=== PATIENT | male | born 1945 | race Caucasian/White ===

== ENCOUNTER → 2023-04-19 06:33 | Outpatient (REF) | payer MEDICARE, SELFPAY ==
[2023-04-19 07:34] LABS: ALT (SGPT) 35 U/L (0-50); AST (SGOT) 31 U/L (17-59); Albumin 3.7 g/dl (3.5-5.0); Alkaline Phosphatase 53 U/L (38-126); Blood Urea Nitrogen 30 mg/dl (9-20); Calcium 9.4 mg/dl (8.4-10.2); Carbon Dioxide 23 mmol/L (22-30); Chloride 105 mmol/L (98-107); Glucose 112 mg/dl (70-99); HDL Cholesterol 32 mg/dl; LDL Cholesterol, Calculated 62 mg/dl; Potassium 4.5 mmol/L (3.5-5.1); Sodium 140 mmol/L (135-145); Total Bilirubin 0.8 mg/dl (0.2-1.3); Total Cholesterol 134 mg/dl (50-199); Total Protein 6.1 g/dl (6.3-8.2); Triglyceride 204 mg/dl (10-149); Very Low Density Lipoprotein 40 mg/dl (0-30); eGFR 56.58
== END ==
LOC: REG 06:33
PROVIDERS: ATTENDING PHYSICIAN Nuclear Medicine Nuclear Cardiology; FAMILY PHYSICIAN Family Medicine
DX: I35.0 Nonrheumatic aortic (valve) stenosis (principal); I25.10 Atherosclerotic heart disease of native coronary artery without angina pectoris; R06.02 Shortness of breath; E78.00 Pure hypercholesterolemia, unspecified
CPT/HCPCS: 36415; 80053; 80061

== ENCOUNTER → 2023-09-21 06:38 | Outpatient (REF) | payer MEDICARE, SELFPAY ==
[2023-09-21 07:39] LABS: % Basophils 0.8 % (0-2); % Eosinophils 6.1 % (0-6); % Immature Granulocytes 0.5 % (0-0.5); % Lymphocytes 29.5 % (20.5-51.1); % Monocytes 7.8 % (1.7-9.3); % Neutrophils 55.3 % (42.2-75.2); Absolute Basophils 0.1 10^3/uL (0-0.2); Absolute Eosinophils 0.5 10^3/uL (0-0.7); Absolute Lymphocytes 2.6 10^3/uL (1.2-3.4); Absolute Monocytes 0.7 10^3/uL (0.1-0.6); Absolute Neutrophils 4.8 10^3/uL (1.4-6.5); Hematocrit 41.4 % (39.0-52.0); Hemoglobin 13.7 g/dL (13.0-18.0); Mean Corp Hgb Conc. 33.1 g/dL (33.0-37.0); Mean Corpuscular Hgb 30.6 pg (27.0-31.0); Mean Corpuscular Volume 92.6 fL (80.0-94.0); Mean Platelet Volume 10.2 fL (7.4-10.4); Nucleated Red Blood Cells % 0 % (-); Platelet Count 236 10^3/uL (130-400); Red Blood Cell Count 4.47 10^6/uL (4.70-6.10); White Blood Cell Count 8.7 10^3/uL (4.8-10.8)
[2023-09-21 07:55] LABS: ALT (SGPT) 29 U/L (0-50); AST (SGOT) 31 U/L (17-59); Albumin 4.1 g/dl (3.5-5.0); Alkaline Phosphatase 55 U/L (38-126); Blood Urea Nitrogen 25 mg/dl (9-20); Calcium 9.4 mg/dl (8.4-10.2); Carbon Dioxide 24 mmol/L (22-30); Chloride 108 mmol/L (98-107); Glucose 104 mg/dl (70-99); HDL Cholesterol 36 mg/dl; LDL Cholesterol, Calculated 72 mg/dl; Potassium 4.5 mmol/L (3.5-5.1); Sodium 138 mmol/L (135-145); Total Bilirubin 0.7 mg/dl (0.2-1.3); Total Cholesterol 151 mg/dl (50-199); Total Protein 6.6 g/dl (6.3-8.2); Triglyceride 219 mg/dl (10-149); Very Low Density Lipoprotein 43 mg/dl (0-30); eGFR 56.23
[2023-09-21 08:23] LABS: Free T4 0.98 ng/dl (0.78-2.19); Vitamin D, 25-OH*** 46.3 ng/mL (30-80)
[2023-09-21 08:36] LABS: PSA, Total - Diagnostic 0.34 ng/ml (0.0-4.0); TSH 2.45 uIU/ml (0.47-4.68)
[2023-09-21 08:56] LABS: Vitamin B12 613 pg/ml (239-931)
[2023-09-21 11:09] LABS: Glycohemoglobin (HgbA1c) 5.8 % (4.0-5.6)
== END ==
LOC: REG 06:38
PROVIDERS: ATTENDING PHYSICIAN Nuclear Medicine Nuclear Cardiology; FAMILY PHYSICIAN Family Medicine
DX: E78.00 Pure hypercholesterolemia, unspecified (principal); I25.10 Atherosclerotic heart disease of native coronary artery without angina pectoris; I35.0 Nonrheumatic aortic (valve) stenosis; R06.02 Shortness of breath; R73.03 Prediabetes; D52.9 Folate deficiency anemia, unspecified; E55.9 Vitamin D deficiency, unspecified; C61 Malignant neoplasm of prostate
CPT/HCPCS: 36415; 80053; 80061; 82306; 82607; 83036; 84153; 84439; 84443; 85025

== ENCOUNTER → 2023-10-07 10:41 | Outpatient (REF) | payer MEDICARE, SELFPAY | LOC: REG 10:41 | PROVIDERS: ATTENDING PHYSICIAN Nurse Practitioner Family; FAMILY PHYSICIAN Family Medicine | DX: R19.7 Diarrhea, unspecified (principal) | CPT/HCPCS: 82653; 82705; 83993; 87328; 87329 ==

== ENCOUNTER 2023-11-04 05:12 | Emergency (ER) | payer MEDICARE, SELFPAY ==
[2023-11-04] VITALS (18 sets, daily range): BP systolic 162–186; BP diastolic 69–106; BMI 31.6
[2023-11-04 05:46] LABS: % Basophils 0.5 % (0-2); % Eosinophils 5.4 % (0-6); % Immature Granulocytes 0.4 % (0-0.5); % Lymphocytes 25.7 % (20.5-51.1); % Monocytes 9.5 % (1.7-9.3); % Neutrophils 58.5 % (42.2-75.2); Absolute Basophils 0.1 10^3/uL (0-0.2); Absolute Eosinophils 0.5 10^3/uL (0-0.7); Absolute Lymphocytes 2.6 10^3/uL (1.2-3.4); Absolute Neutrophils 5.9 10^3/uL (1.4-6.5); Hematocrit 37.6 % (39.0-52.0); Hemoglobin 12.5 g/dL (13.0-18.0); Mean Corp Hgb Conc. 33.2 g/dL (33.0-37.0); Mean Corpuscular Hgb 30.6 pg (27.0-31.0); Mean Corpuscular Volume 92.2 fL (80.0-94.0); Mean Platelet Volume 10.4 fL (7.4-10.4); Nucleated Red Blood Cells % 0 % (-); Platelet Count 246 10^3/uL (130-400); Red Blood Cell Count 4.08 10^6/uL (4.70-6.10); Red Cell Dist. Width 14.1 % (11.5-14.5)
[2023-11-04 06:00] LABS: ALT (SGPT) 30 U/L (0-50); AST (SGOT) 29 U/L (17-59); Albumin 3.9 g/dl (3.5-5.0); Alkaline Phosphatase 55 U/L (38-126); Blood Urea Nitrogen 30 mg/dl (9-20); Calcium 9.6 mg/dl (8.4-10.2); Carbon Dioxide 26 mmol/L (22-30); Chloride 107 mmol/L (98-107); Estimated Creatinine Clearance 55 ml/min; Glucose 112 mg/dl (70-99); Potassium 4.6 mmol/L (3.5-5.1); Sodium 139 mmol/L (135-145); Total Bilirubin 0.4 mg/dl (0.2-1.3); Total Protein 6.2 g/dl (6.3-8.2); eGFR 56.23
[2023-11-04 06:12] LABS: NT-proBNP 190 pg/ml; Troponin I < 0.012 ng/ml
--- NOTE | 2023-11-04 06:18 | ED.GENMED ---
History of Present Illness
<Lesly Cheatham MD, Resident - Last Filed: 11/04/23 12:57>
General
Chief Complaint: Chest Pain
Time Seen by Provider: 11/04/23 06:15
History of Present Illness
History of Present Illness:
78 year old male presenter to ER this morning with chest pain. He reported he was feeling fine until this morning and his pain suddenly started and made him wake up from his sleep around 4.00 am. He feels the pain around his sternum and feels some
burning sensation too. He reported he took 2 pills of nitro ( nitroglycerin 0.4 mg sublingual) and it decreased his chest pain. The patient has had 2 IA in the past. The patient denies radiating pain to his back or shoulder. The patient has the
diagnosis of vertigo. He denies any worsening with his dizziness and SOB. He denies vomiting.
Past History
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
ED Past Surgical History: Cardiac (PTCA with stent times 04/23/2010, February 2013), Orthopedic and Tonsillectomy
Social History
Tobacco: Non-smoker
Alcohol: Occasional
Drug: None
Personal:
Living: with family
Employment: Retired
Family History
Family History: CAD
If applicable-neuro sx onset
Onset of symptoms known: Yes
Date of onset of symptoms: 11/04/23
Past History
<Lesly Cheatham MD, Resident - Last Filed: 11/04/23 12:57>
Past History
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
ED Past Surgical History: Cardiac (PTCA with stent times 04/23/2010, February 2013), Orthopedic and Tonsilectomy
Social History
Tobacco: Non-smoker
Alcohol: Occasional
Drug: None
Personal:
Living: with family
Employment: Retired
Family History
Family History: CAD
Phy Exam
<Lesly Cheatham MD, Resident - Last Filed: 11/04/23 12:57>
General Physical Exam
General Presentation: well appearing and no apparent distress
General Skin: warm
General Mental: alert
Eye Exam
Eye Exam: PERRL
Cardiovascular Exam
Cardiovascular Exam: regular rate/rhythm, no JVD, bradycardia, systolic murmur and other (ECG: SINUS BRADYCARDIA OTHERWISE NORMAL ECG WHEN COMPARED WITH ECG OF 19-MAR-2022 12:19, INVERTED T WAVES HAVE REPLACED NONSPECIFIC T WAVE ABNORMALITY IN
LATERAL LEADS)
Pulmonary Exam
Pulmonary Exam: lungs clear, no respiratory distress, no crackles, no stridor, no wheezing and no cough
Neurological Exam
Neurological Exam: alert, oriented x3 and no motor deficits
Scores
<Lesly Cheatham MD, Resident - Last Filed: 11/04/23 12:57>
Heart Score for Chest Pain Patients
STEMI patient?: No
History: Moderately Suspicious
ECG: Nonspecific Repolarization
Age: >/= 65 years
Risk Factors: >/= 3 Risk Factors or History of CAD
Troponin: </= Normal Limit
Heart Score for Chest Pain Patients: 6
Heart Score Risk: 20.3% MACE over next 6 weeks
Course
<Lesly Cheatham MD, Resident - Last Filed: 11/04/23 12:57>
Orders/Labs/Results
Orders:
Orders
11/04/23 05:13
Electrocardiogram (*1) Urgent
Reason for Study: Chest Pain
Electrocardiogram (*1) Urgent
Reason for Study: Other
Other Reason for Exam: Respiratory Distress
Cardiac Monitoring- Treatment ONCE
EKG- Treatment ONCE
IV Insert/Care/Rem.- Treatment PRN
CR Chest - 2 Views Urgent
Comment:
Reason For Exam: respiratory distress
O2 Therapy [RESP] Urgent
Titrate/Wean O2 to maintain O2 sat greater than (%): 93
Special Instructions: TO MAINTAIN CONTINUOUS O2 SATS >/= 93%
Pulse Ox/cont/shift [RESP] Urgent
Quantity: 1
Special Instructions: continuous pulse ox
11/04/23 05:30
Complete Blood Count/With Diff Urgent
Comprehensive Metabolic Panel Urgent
NT-proBNP Urgent
Troponin I Urgent
11/04/23 06:32
Pantoprazole [Protonix IV] 40 mg IV NOW STA
11/04/23 06:56
Famotidine [Pepcid] 20 mg .ROUTE .STK-MED ONE
11/04/23 07:11
Aspirin 325 mg PO NOW STA
11/04/23 08:20
Troponin I Urgent
11/04/23 10:36
Echo 2D MMode Color/Doppler Routine
Reason for Study: chest pain, moderate
11/04/23 11:00
Losartan [Cozaar] 25 mg PO DAILY
11/04/23 22:00
Famotidine [Pepcid] 20 mg IV HS
Abnormal Lab Results
11/04/23
05:30
RBC 4.08 L 10^6/uL
(4.70-6.10)
Hgb 12.5 L g/dL
(13.0-18.0)
Hct 37.6 L %
(39.0-52.0)
Absolute Monos (auto) 1.0 H 10^3/uL
(0.1-0.6)
Monocytes % 9.5 H %
(1.7-9.3)
BUN 30 H mg/dl
(9-20)
Glucose 112 H mg/dl
(70-99)
Total Protein 6.2 L g/dl
(6.3-8.2)
11/04/23 05:30
11/04/23 05:30
Vital Signs
Initial and Last Documented VS:
Initial Vital Signs
Temp Pulse Resp BP Pulse Ox
97.5 F 48 20 177/73 97
11/04/23 05:21 11/04/23 05:21 11/04/23 05:21 11/04/23 05:21 11/04/23 05:21
Last Documented Vital Signs
Temp Pulse Resp BP Pulse Ox
98.1 F 51 16 165/69 98
11/04/23 07:32 11/04/23 12:49 11/04/23 12:49 11/04/23 12:49 11/04/23 12:49
<Martin Sanchez, DO - Last Filed: 11/04/23 07:18>
Orders/Labs/Results
Orders:
Orders
11/04/23 05:13
Electrocardiogram (*1) Urgent
Reason for Study: Chest Pain
Electrocardiogram (*1) Urgent
Reason for Study: Other
Other Reason for Exam: Respiratory Distress
Cardiac Monitoring- Treatment ONCE
EKG- Treatment ONCE
IV Insert/Care/Rem.- Treatment PRN
CR Chest - 2 Views Urgent
Comment:
Reason For Exam: respiratory distress
O2 Therapy [RESP] Urgent
Titrate/Wean O2 to maintain O2 sat greater than (%): 93
Special Instructions: TO MAINTAIN CONTINUOUS O2 SATS >/= 93%
Pulse Ox/cont/shift [RESP] Urgent
Quantity: 1
Special Instructions: continuous pulse ox
11/04/23 05:30
Complete Blood Count/With Diff Urgent
Comprehensive Metabolic Panel Urgent
NT-proBNP Urgent
Troponin I Urgent
11/04/23 06:32
Pantoprazole [Protonix IV] 40 mg IV NOW STA
11/04/23 06:56
Famotidine [Pepcid] 20 mg .ROUTE .STK-MED ONE
11/04/23 07:11
Aspirin 325 mg PO NOW STA
11/04/23 08:20
Troponin I Urgent
11/04/23 10:36
Echo 2D MMode Color/Doppler Routine
Reason for Study: chest pain, moderate
11/04/23 11:00
Losartan [Cozaar] 25 mg PO DAILY
11/04/23 22:00
Famotidine [Pepcid] 20 mg IV HS
Abnormal Lab Results
11/04/23
05:30
RBC 4.08 L 10^6/uL
(4.70-6.10)
Hgb 12.5 L g/dL
(13.0-18.0)
Hct 37.6 L %
(39.0-52.0)
Absolute Monos (auto) 1.0 H 10^3/uL
(0.1-0.6)
Monocytes % 9.5 H %
(1.7-9.3)
BUN 30 H mg/dl
(9-20)
Glucose 112 H mg/dl
(70-99)
Total Protein 6.2 L g/dl
(6.3-8.2)
11/04/23 05:30
11/04/23 05:30
Vital Signs
Initial and Last Documented VS:
Initial Vital Signs
Temp Pulse Resp BP Pulse Ox
97.5 F 48 20 177/73 97
11/04/23 05:21 11/04/23 05:21 11/04/23 05:21 11/04/23 05:21 11/04/23 05:21
Last Documented Vital Signs
Temp Pulse Resp BP Pulse Ox
98.1 F 51 16 165/69 98
11/04/23 07:32 11/04/23 12:49 11/04/23 12:49 11/04/23 12:49 11/04/23 12:49
<Lesly Cheatham MD, Resident - Last Filed: 11/04/23 12:57>
MDM/Problems Addressed
Differential Diagnosis Includes:
IA, PNA, GERD, Musculoskeletal pain?
MDM/Problems Addressed:
ECG and troponin were ordered:EKG showed: OTHERWISE NORMAL ECG
WHEN COMPARED WITH ECG OF 19-MAR-2022 12:19, INVERTED T WAVES HAVE REPLACED NONSPECIFIC T WAVE ABNORMALITY IN LATERAL LEADS
Chest X ray was ordered: SINUS BRADYCARDIA
First Troponin level <0.012
The patient reported more pain and radiating on his chest on the right side. He denied severe pain and sis not want to take an additional nitroglycerine or pain medication. He was given 325 mg of aspirin.The patient was consulted to cardiology.
Second Troponin level resulted as <0.012
Cardiology team assessed the patient and did recommendations.The patient will be followed up by cardiology and will be discharged home today.
<Lesly Cheatham MD, Resident - Last Filed: 11/04/23 12:57>
*Critical Care Note
Total Time (30-74mins, 75-104mins- exclusive of procedures): Not Applicable
<Lesly Cheatham MD, Resident - Last Filed: 11/04/23 12:57>
Comment
Comment:
The patient started to feel more pain around 7.00 am and has been feeling a sharp pain and pressure on his chest. The patient reports his pain is radiating to right side of his chest now like the pain he has 11 years ago when he had his last IA.
ED Attending Note
<Lesly Cheatham MD, Resident - Last Filed: 11/04/23 12:57>
-
Portions of this chart may have been created with voice recognition software.� Occasional wrong word or��sound alike� substitutions may have occurred due to the inherent limitations of voice recognition software.
<Martinmorgan Sanchez, DO - Last Filed: 11/04/23 07:18>
ED Attending Note
Patient seen and examined by attending physician: Yes
I performed a history and physical exam of patient and discussed management with resident, I reviewed resident's note and agree with documented findings and plan of care.: Yes
ED Attending Note:
I have seen and evaluated the patient with a [id number] encounter. I have spoken to the resident and involved in the medical history, the physical exam, medical decision making.
Evaluation and management service: agree unless noted differently below.
Results interpretation: agree unless noted differently below.
Focused HPI: 78-year-old male presenting with central and right-sided chest pain. Patient is unsure if it woke him up or he noted it when he woke up. Regardless, he took nitroglycerin which resolved the pain. Patient states he felt very similar
in 2010 when he required multiple stents. He does complain of exertional dyspnea but states this is somewhat chronic
Physical exam: Sitting in bed comfortably. Holosystolic murmur (patient aware of aortic stenosis diagnosis)
Medical Decision Making: Given his history of coronary artery disease, will obtain second troponin. Initial troponin EKG nonischemic. However, patient states this is very similar to prior presentation requiring multiple stents. Because of his
prior history and similar presentation, will have cardiology evaluate
Discharge Plan
Departure
Patient Disposition: Home (Routine Discharge)
Date of Disposition: 11/04/23
Time of Disposition: 12:45
Patient with high blood pressure during this ER visit?: Yes
Condition: Good
Discharge Problem:
Chest pain
Prescriptions:
New
losartan 25 mg tablet
25 mg PO DAILY Qty: 30 0RF
famotidine [Heartburn Prevention] 20 mg tablet
20 mg PO DAILY Qty: 14 0RF
Discontinued
isosorbide mononitrate 30 MG tablet extended release 24 hr
30 mg PO DAILY
No Action
calcium carbonate [Calcium 600] 600 MG tablet
600 mg PO DAILY
esomeprazole magnesium [Nexium] 40 MG capsule,delayed release(DR/EC)
40 mg PO DAILY
nitroglycerin 0.4 MG tablet, sublingual
0.4 mg sublingual [id number] PRN (Reason: chest pain)
azelastine 1 SPRAY aerosol,spray
2 spray intranasal BID
levocetirizine 5 MG tablet
5 mg PO BID
glucosam-chond ad-smhtes-xk ac 1 EACH capsule
1 cap PO DAILY
aspirin 81 MG tablet,delayed release (DR/EC)
81 mg PO DAILY
docosahexaenoic acid-epa 1 CAP capsule
3,000 mg PO DAILY
metoprolol tartrate 25 MG tablet
12.5 mg PO HS
multivitamin with folic acid [Tab-A-Milena] 1 TABLET tablet
1 tab PO DAILY
furosemide 20 MG tablet
20 mg PO DAILY Qty: 0
albuterol sulfate 1 PUFF HFA aerosol inhaler
2 puff inhalation R TIDPRN PRN (Reason: wheezing /sob) Qty: 0
escitalopram oxalate 10 MG tablet
5 mg PO QPM
L.acidoph, paracasei,B. lactis 1 EACH capsule
1 ea PO DAILY
arformoterol [Brovana] 15 MCG/2 ML solution for nebulization
15 mcg inhalation R BID
Yupelri 175 MCG/3 ML solution for nebulization
175 mcg inhalation R QPM
pravastatin 40 MG tablet
80 mg PO HS
tamsulosin 0.4 MG capsule
0.4 mg PO DAILY
ferrous sulfate [FeroSul] 325 MG tablet
325 mg PO DAILY
budesonide 0.5 MG/2 ML suspension for nebulization
0.5 mg inhalation R DAILY
guaifenesin [Mucus Relief ER] 600 MG tablet extended release 12hr
600 mg PO BID
Referrals:
Deandra Diane CRNP [Specified Professional Personl] - 11/28/23 9:40 am (You have a follow up visit with Dr. Parker's PRINCIPAL GIFTS OFFICER, Deandra, at the [place] office. Please call with questions. )
Deanna Madera MD [Family Provider] -
Activity Restrictions/Additional Instructions:
You have been arranged for a nuclear stress test Tuesday, 11/06 at the [facility] in [place] at 11:40 AM. Please call with questions.
The patient was consulted to cardiology and it was recommend to stop taking imdur and start taking losartan 25 mg and famotidine 20 mg daily.
Interventions
Interventions:
*Risk Screen - Suicide Last Done: 11/04/23 05:31
*General Assessment Last Done: 11/04/23 05:31
*Neglect/Abuse Screening Last Done: 11/04/23 05:31
ED- Fall Risk Assessment Last Done: 11/04/23 05:31
*ED COVID-19 Vaccine History Last Done: 11/04/23 05:31
ED- Cardiac Assessment Last Done: 11/04/23 07:32
Discharge Date and Time
Print Language: SERBIAN
--- NOTE | 2023-11-04 06:54 | EDRN ---
provider currently at the pts bedside
[2023-11-04] MEDS: PEPCID 20 MG IV (06:58)
--- NOTE | 2023-11-04 07:05 | EDRN ---
Dr. Sanchez currently at the [facility] bedside
[2023-11-04] MEDS: ASPIRIN 325 MG PO (07:17)
--- NOTE | 2023-11-04 07:39 | EDRN ---
this RN noticed that the pt lena's down on the monitor from the 60's to the 40's, this RN notified Dr. Sanchez, will continue to monitor the pt closely
--- NOTE | 2023-11-04 08:52 | EDRN ---
the pt pressed the call escoto and this RN entered the pts room, the pt stated that he needed to use the bathroom, the pt was able to ambulate to the bathroom and back to the stretcher with no issues, the pt is now resting in stretcher in the lowest
position, side rails up x2, call escoto within reach, HOB elevated, no s/s of distress, no c/o chest pain, no c/o SOB, cardiology coming to see the pt, will continue to monitor the pt closely
[2023-11-04 08:57] LABS: Troponin I < 0.012 ng/ml
--- NOTE | 2023-11-04 09:11 | EDRN ---
Cardiology currently at the pts bedside speaking with the pt and the pts
--- NOTE | 2023-11-04 09:19 | CON.CAR ---
Addendum entered and electronically signed by Soy Schwartz MD 11/04/23 10:44:
78-year-old man with history of non-ST segment elevation [place] in 2010 who underwent Xience stenting of D1 and 2 stents to OM1 with residual 50% mid RCA. Now with substernal pain/burning known moderate aortic stenosis by echocardiography in 1999
and24,, peak/mean aortic valve gradient 51/31 and aortic valve area of 1.0-1.1 cm with mild to moderate LVH and normal EF mild mitral regurgitation, normal pulmonary artery pressure
PMH relative hypotension, CAD as above, GERD, peptic ulcer disease, vertebral fracture, prostate cancer 2016 with XRT, nonalcoholic fatty liver disease, CLL, aortic stenosis, bronchiectasis and COPD
FH: Positive for CAD
SH carotid endarterectomy, arthroscopic left knee surgery, right rotator cuff, hemorrhoids, carpal tunnel, deviated septum, orthopedic
SH: Former smoker, occasional alcohol
Allergies codeine, statins, nonsteroidals, propofol
ROS negative except as above
162/69, pulse 48, resp rate 16, afebrile, 97%, no distress head neck exam unremarkable, lungs are clear, aortic stenosis murmur, bradycardic, abdomen benign, extremities without clubbing cyanosis or edema distal pulses are palpable
Chest x-ray: NAD EKG sinus bradycardia normal EKG (metoprolol ER 12.5 mg daily
Hemoglobin 12.5 white count 10, platelets 246, BUN and creatinine 30 and 1.3, potassium 4.6, troponin is undetectable, proBNP is 190
Impression:
Presented with chest pain
Negative troponin x 2
Elevated blood pressures
CAD
s/p JOHNY to RCA 02/2009
s/p JOHNY to D1 and OM1 05/2010
cath 08/2014 w/ 50% LAD, 40% in-stent restenosis of RCAHLD
GERD
Moderate
h/o prostate CA
s/p XRT and chemoCLL
Bronchiectasis
Echo 04/07/2023: EF 60 to 65%, mild to moderate concentric LVH, moderate with peak/mean gradients 51/31 mmHg, mild AI
Plan:
He presents with chest pain that could be consistent with ACS, but also possibly with reflux. Symptoms are reminiscent of those preceding his PCI, but also similar to 2 years ago when symptoms were gastrointestinal in origin. Normal troponin and
no EKG changes makes ACS unlikely.
It is possible that some of his symptoms relate to hypertension in the setting of aortic stenosis and increased myocardial oxygen demand. He is very bradycardic on low-dose metoprolol. Ultimately I think that he may benefit from discontinuation of
metoprolol but in reluctant to do so at this time. Would add losartan 25 mg a day for his blood pressure. Explanation for sudden increase in blood pressure is uncertain at this time. Instructed that if he becomes lightheaded we may need to
discontinue losartan.
Addition of famotidine may be helpful on top of Nexium.
Given aortic stenosis Imdur should be discontinued.
He will need an echo and a sestamibi study. This could be performed as an outpatient. Thereafter he can follow-up to Dr. Parker who can determine whether further investigation is warranted.
Discussed with ER staff and with patient. He is in agreement.
Original Note:
Consultation
Consultation Request
Date/Time Consultation Requested: 11/04/2023
Date/Time Consultation Performed: 11/04/2023
Requesting Provider: Dr. Cheatham, Dr. Sanchez
Performing Provider: Dr. LUIS Schwartz
Reason for Consultation: Chest pain
Medical History
-
History of Present Illness:
HPI: Morris is a 78-year-old male with past medical history of CAD s/p JOHNY to RCA, D1, and OM 1, hyperlipidemia, GERD, moderate , prostate cancer, CLL, and bronchiectasis. He presents to ER for evaluation of chest pain. He has been in his
usual state of health when he woke up this morning around 4 AM and noted chest pain that was substernally located. He took 2 sublingual nitroglycerin which resolved his pain 95%. Also noted associated nausea. Came to ER for evaluation given
known history of coronary artery disease. He reports his symptoms felt similar to his prior angina. While in ER, he did have some mild recurrence of his symptoms with radiation into the right side of his neck. Symptoms resolved and he was given
325 mg of aspirin in ER. He was also given pantoprazole and Pepcid. He currently reports he is pain-free and feels in his usual state of health. He notes chronic shortness of breath that is unchanged and related to his bronchiectasis and prior
treatment with Neulasta. Troponins negative x 2 in ER. Otherwise, workup unremarkable, but patient is noted to be hypertensive which is unusual for him as he is typically borderline hypotensive/orthostatic.
PMH:
CAD
s/p JOHNY to RCA 02/2009
s/p JOHNY to D1 and OM1 05/2010
cath 08/2014 w/ 50% LAD, 40% in-stent restenosis of RCA
HLD
GERD
Moderate
h/o prostate CA
s/p XRT and chemo
CLL
Bronchiectasis
h/o R carotid endarterectomy
Past Medical History
Past Medical History: Other (In HPI)
Past Surgical History: Cardiac (Prior PCI of RCA, D1, and OM 1 as noted above) and Other (Carotid endarterectomy, trigger finger release, tonsillectomy, rotator cuff repair, carpal tunnel surgery)
Social History
Tobacco: Former Smoker
Alcohol: Occasional
Drug: None
Personal:
Living: With Family
Employment: Retired
Family History
Family History: CAD
Allergies / Home Medications
Allergy/AdvReac Type Severity Reaction Status Date / Time
atorvastatin calcium Allergy muscle Verified 11/04/23 05:14
[From Lipitor] aches
celecoxib [From Celebrex] Allergy duodenal Verified 11/04/23 05:14
ulcers
codeine [Codeine] Allergy DIZZINESS, Verified 11/04/23 05:14
CHILLS
fentanyl [Fentanyl] Allergy Anaphylaxis Verified 11/04/23 05:14
lidocaine Allergy Anaphylaxis Verified 11/04/23 05:14
procaine [Procaine] Allergy Anaphylaxis Verified 11/04/23 05:14
Jtpwwas-ODT-LaV Reductase Allergy HEADACHES, Verified 11/04/23 05:14
Inhibitor MUSCLE
[Ccomdog-Jpk-Upd Reductase WEAKNESS
Inhibitor]
anesthetics Allergy Anaphylaxis Uncoded 11/04/23 05:14
phosphate Allergy Unknown Uncoded 11/04/23 05:14
�Medication �Instructions �Recorded �Confirmed �Type
azelastine 137 mcg (0.1 %) nasal 2 spray intranasal BID 05/31/13 11/04/23 History
spray
calcium carbonate (Calcium 600) 600 mg PO DAILY 05/31/13 11/04/23 History
esomeprazole magnesium 40 mg 40 mg PO DAILY 05/31/13 11/04/23 History
capsule,delayed release (Nexium)
rznpykaaqz-icqkfxgyfe-zbkgycpx-hyalur 1 cap PO DAILY 05/31/13 11/04/23 History
ac 375 mg-300 mg-175 mg-2 mg cap
levocetirizine 5 mg tablet 5 mg PO BID 05/31/13 11/04/23 History
nitroglycerin 0.4 mg sublingual 0.4 mg sublingual [id number] PRN 05/31/13 11/04/23 History
tablet chest pain
aspirin 81 mg tablet,delayed 81 mg PO DAILY 08/26/14 11/04/23 History
release
docosahexaenoic acid (dha)-epa 120 3,000 mg PO DAILY 08/26/14 11/04/23 History
mg-180 mg capsule
metoprolol tartrate 25 mg tablet 12.5 mg PO HS 08/26/14 11/04/23 History
multivitamin with folic acid 400 1 tab PO DAILY 08/26/14 11/04/23 History
mcg tablet (Tab-A-Milena)
albuterol sulfate 90 mcg/actuation 2 puff inhalation R TIDPRN PRN 11/03/16 11/04/23 History
aerosol inhaler wheezing /sob ##0
furosemide 20 mg tablet 20 mg PO DAILY ##0 11/03/16 11/04/23 History
L.acidoph, paracasei,B. lactis 10 1 ea PO DAILY 12/18/17 11/04/23 History
billion cell capsule
escitalopram oxalate 10 mg tablet 5 mg PO QPM 12/18/17 11/04/23 History
isosorbide mononitrate 30 mg 30 mg PO DAILY 12/18/17 11/04/23 History
tablet,extended release 24 hr
arformoterol 15 mcg/2 mL solution 15 mcg inhalation R BID 01/18/21 11/04/23 History
for nebulization (Brovana)
budesonide 0.5 mg/2 mL suspension 0.5 mg inhalation R DAILY 01/18/21 11/04/23 History
for nebulization
ferrous sulfate 325 mg (65 mg 325 mg PO DAILY 01/18/21 11/04/23 History
iron) tablet (FeroSul)
guaifenesin 600 mg tablet, 600 mg PO BID 01/18/21 11/04/23 History
extended release 12 hr (Mucus
Relief ER)
pravastatin 40 mg tablet 80 mg PO HS 01/18/21 11/04/23 History
revefenacin 175 mcg/3 mL solution 175 mcg inhalation R QPM 01/18/21 11/04/23 History
for nebulization (Yupelri)
tamsulosin 0.4 mg capsule 0.4 mg PO DAILY 01/18/21 11/04/23 History
Review of Systems
-
History Source: Patient
All other systems: Negative unless noted
Physical Exam
Vital Signs
Temp Pulse Resp BP Pulse Ox
98.1 F 49 20 165/76 98
11/04/23 07:32 11/04/23 08:51 11/04/23 08:29 11/04/23 08:51 11/04/23 08:51
Lab Results
11/04/23 05:30
11/04/23 05:30
Troponin I < 0.012 ng/ml 11/04/23 08:20
Yfh-Q-Uagxcryqtaq Pept 190 pg/ml 11/04/23 05:30
Physical Exam
General: Well Developed, Well Nourished and No Apparent Distress
HEENT: Normocephalic, Anicteric and Moist Mucous Membranes
Respiratory: Clear and Non Labored Respirations
Cardiac: S1/S2, Regular Rhythm and Murmur
Musculoskeletal: No Clubbing, No Cyanosis and Edema
Skin: Warm and Dry
Neuro: AO x 3 and Nonfocal/Grossly Intact
Psych: Calm
Impression / Plan
-
PCP: Dr. Madera
Cardiology: Dr. Parker
Impression:
Presented with chest pain
Negative troponin x 2
Elevated blood pressures
CAD
s/p JOHNY to RCA 02/2009
s/p JOHNY to D1 and OM1 05/2010
cath 08/2014 w/ 50% LAD, 40% in-stent restenosis of RCA
HLD
GERD
Moderate
h/o prostate CA
s/p XRT and chemo
CLL
Bronchiectasis
Echo 04/07/2023: EF 60 to 65%, mild to moderate concentric LVH, moderate with peak/mean gradients 51/31 mmHg, mild AI
Plan:
-Presented with chest pain which felt similar to prior angina. Resolved after 2 sublingual nitroglycerin.
-He has been active without any limiting exertional symptoms. He has chronic shortness of breath that is unchanged related to prior chemotherapy.
-Troponin negative x 2 in ER. Remains pain-free at this time.
-EKG reviewed. Sinus bradycardia with no acute ischemic changes noted.
-Prior echo 03/2023 with preserved ejection fraction and moderate aortic stenosis. Repeat while in ER.
-If he remains pain-free, would plan for discharge with outpatient stress testing next week which will be arranged.
-Typically borderline hypotensive, however blood pressure significantly elevated while in ER. Most recent BP 165/76.
-On Imdur 30 mg daily as outpatient. With elevated blood pressures, would add losartan 25mg daily. Creat 1.3 which appears to be baseline.
-With bradycardia, would consider stopping metoprolol.
-Chest x-ray with no acute cardiopulmonary disease.
-Continue pravastatin and zetia as OP
-Continue aspirin 81mg daily.
-Consider addition of pepcid.
HPI: Morris is a 78-year-old male with past medical history of CAD s/p JOHNY to RCA, D1, and OM 1, hyperlipidemia, GERD, moderate , prostate cancer, CLL, and bronchiectasis. He presents to ER for evaluation of chest pain. He has been in his
usual state of health when he woke up this morning around 4 AM and noted chest pain that was substernally located. He took 2 sublingual nitroglycerin which resolved his pain 95%. Also noted associated nausea. Came to ER for evaluation given
known history of coronary artery disease. He reports his symptoms felt similar to his prior angina. While in ER, he did have some mild recurrence of his symptoms with radiation into the right side of his neck. Symptoms resolved and he was given
325 mg of aspirin in ER. He was also given pantoprazole and Pepcid. He currently reports he is pain-free and feels in his usual state of health. He notes chronic shortness of breath that is unchanged and related to his bronchiectasis and prior
treatment with Neulasta. Troponins negative x 2 in ER. Otherwise, workup unremarkable, but patient is noted to be hypertensive which is unusual for him as he is typically borderline hypotensive/orthostatic.
Data Reviewed
-
EKG: Tracing Personally Visualized and interpreted
Radiology: Report Reviewed by me
Labs: Labs Reviewed by me
Old Records: Reviewed
--- NOTE | 2023-11-04 10:31 | EDRN ---
publishing specialist currently at the pts bedside speaking with the pt and the pts
--- NOTE | 2023-11-04 11:16 | EDRN ---
pt sent to get an echo, shelter monitor kept on the pt for transport
[2023-11-04] MEDS: COZAAR 25 MG PO (12:44)
--- NOTE | 2023-11-04 12:49 | EDRN ---
provider currently at the pts bedside speaking to the pt
== END 2023-11-04 13:06 | disposition home or self-care (01) ==
LOC: EMR 05:12
PROVIDERS: Student in an Organized Health Care Education/Training Program; EMERGENCY PHYSICIAN Student in an Organized Health Care Education/Training Program; FAMILY PHYSICIAN Family Medicine; OTHER PHYSICIAN Internal Medicine Cardiovascular Disease
DX: R07.89 Other chest pain (principal); I10 Essential (primary) hypertension; I25.10 Atherosclerotic heart disease of native coronary artery without angina pectoris; E78.00 Pure hypercholesterolemia, unspecified; K21.9 Gastro-esophageal reflux disease without esophagitis
CPT/HCPCS: 99285; 96374; 71046; 80053; 83880; 84484; 85025; 93005; 93306

== ENCOUNTER → 2023-11-07 11:34 | Outpatient (REF) | payer MEDICARE, SELFPAY | LOC: DHCBC/DCA 11:34 | PROVIDERS: ATTENDING PHYSICIAN Nuclear Medicine Nuclear Cardiology; FAMILY PHYSICIAN Family Medicine | DX: R07.89 Other chest pain (principal); I25.10 Atherosclerotic heart disease of native coronary artery without angina pectoris; Z95.5 Presence of coronary angioplasty implant and graft | CPT/HCPCS: 78452; 93017; A9500; J2785 ==

== ENCOUNTER 2023-11-11 08:29 | Day surgery (SDC) | payer MEDICARE, SELFPAY ==
[2023-11-11] VITALS (23 sets, daily range): BP systolic 74–140; BP diastolic 45–68; BMI 31.9
[2023-11-11] MEDS: NSS 293 ML IV (09:47)
--- NOTE | 2023-11-11 10:03 | PTCARENOTE ---
Pt stated his head felt tingling and dizzyness was setting in, bedside nurse Helen stated she whitessed pt haning facia features resembling seizure. Event happened shortly after IV placed in hand and syncope was suspected. HR dropped to 40's. Atropine
0.5 MG IV was given by Ángel ECHEVARRIA. Bedside EKG done and seen by Dr Randle ('SB, non-speciffic T-wave abnormality').O2 placed on at 2 LPM, Bolus of 350 MS NSS given. Pt stated she was having another episode coming on shortly after the first. Hr
recovered to 50's and did not drop again. Mild substernal CP transient post second event. [facility] after sxs resolved.
[2023-11-11] MEDS: ATROPINE 0.1 MG/ML SYRINGE 0.5 MG IV (10:11)
[2023-11-11 11:33] LABS: ACT-LR - POC 256 Seconds (116-155)
[2023-11-11 11:48] LABS: ACT-LR - POC 213 Seconds (116-155)
--- NOTE | 2023-11-11 12:48 | ITS.CL.CATH ---
Curriculum Coach - Catheterization
Cardiac Catheterization
Procedure Report:
RIGHT AND LEFT HEART STUDY
Date of Procedure: November 11, 2023
Referring: Dr. Bhargav Parker
PROCEDURES:
1. Right heart catheterization
2. Coronary angiography
3. Hemodynamic assessment of LAD with a Newhall Omni wire. The iFR serially measured below the ischemic threshold at 0.84, 0.85, 0.84, and 0.86
INDICATION: This is a 78-year-old gentleman with a past medical history notable for coronary artery disease and moderate aortic stenosis. He presented to [facility] emergency department on 11/04/2023 for evaluation of chest discomfort.
Additional history includes reports of bronchiectasis and COPD but I do not see any PFTs. He also has a history of CLL and prostate cancer with a last PSA measuring 0.34 and white blood count of 8.7.
Workup in the emergency department on 11/04/2023 included serial monitoring of troponin which measured less than 0.012 ng/ml x 2. A subsequent stress study on 11/07/23 was notable for small mild inferoapical scar and mild midanterior, anterolateral
ischemia and mild soft tissue attenuation. Dr. Parker reviewed stress results and the patient is now referred for coronary angiography.
NOTE : PATIENT IS ALLERGIC to all 'ROSEANN' and refuses lidocaine. Multiple other allergic reactions including multiple drugs causing anaphylaxis. Patient received IV versed and a little morphine during the procedure
ACCESS: Right radial artery and right brachial vein. Ultrasound guidance.
HEMODYNAMICS : mmHg
RA (m) : 16
RV (s/d) : 30/9, 16
PA (s/d, m) : 31/19, 22
PCWP (m) : 20
AO (s/d, m) : 129/60, 87
Estimated Remberto Cardiac Output: 5.8 L / min and Cardiac Index: 2.7 L/ min / m-2
Systemic vascular resistance: 12.2 Wood units or 979 [id number]-nzd-od(-5)
Pulmonary vascular resistance: 0.34 Wood units or 27.6 fppuv-cjy-sg(-5)
CORONARY FINDINGS :
Dominance: Right
LEFT MAIN: Normal
LEFT ANTERIOR DESCENDING: The LAD arises normally from the left main and runs in the anterior interventricular groove. There is a complex stenosis in the mid LAD spanning the origin of a previously stented diagonal branch. The LAD has a 60%
narrowing spanning the diagonal branch. The mid to distal LAD has only minor irregularities. The diagonal branch is a medium caliber vessel with an existing stent proximally. There is moderate diffuse in-stent restenosis in the diagonal stent
with diffuse 40% stenosis and distal focal 60% stenosis.
CIRCUMFLEX: The circumflex is a medium caliber nondominant vessel giving rise to a sizable bifurcating OM1 previously treated with overlapping stents that appear widely patent. The mid circumflex beyond OM1 has minor irregularities. OM 2 has a
50-60% proximal stenosis
RIGHT CORONARY ARTERY: The right coronary artery is a dominant vessel. There are multiple overlapping stents from the origin of the RCA through mid RCA. The proximal RCA just beyond an RV marginal branch has 65-70 % in-stent restenosis. The
remainder of the mid RCA stents have moderate diffuse in-stent restenosis. The PDA is large. The posterolateral branch is large with minor irregularities
VENTRICULOGRAPHY: Not done
HEMODYNAMIC ASSESSMENT OF THE LAD WITH A AppscendO OMNI WIRE: The origin of the left main was cannulated with a 5 Fr JL 3.5 guide catheter. Intravenous heparin was administered and the ACT was followed during the procedure. Two hundred micrograms of
intracoronary nitroglycerin was given through the guide catheter. A Newhall Omni wire was advanced to the guide catheter tip and normalized to guide catheter pressure. The Omni wire was then carefully manipulated across the stenosis in the mid LAD
and into the apical LAD where the iFR serially measured below the ischemic threshold at 0.84, 0.85, 0.84, and 0.86. The stenotic segment in the LAD spanning the origin of a previously stented diagonal branch. The Omni wire was then pulled back to
the guide catheter where the Pd/Pa measured 1.0 confirming no baseline drift in pressure readings
RADIATION SUMMARY: Fluoro Time (min): 18.1, Dose (mGy): 683, DAP (Gy.cm2) : 52.2
CONCLUSIONS
1. Known moderate aortic stenosis with mean aortic valve gradient of 29-30 mmHg and estimated aortic valve area of 0.8 cm� by noninvasive studies.
2. Hemodynamically significant stenosis in the mid LAD spanning the origin of a previously stented diagonal branch. The iFR in the distal LAD measured 0.84, 0.85, 0.84, and 0.86. There is also a 65-70% stenosis in the proximal RCA within
previously stented segment. The PDA appears to be a decent surgical target. OM2 50-60% proximal stenosis.
RECOMMENDATIONS
1. Will consult CT surgery given aortic stenosis and coronary artery disease including bifurcation of LAD and previously stented diagonal, OM2 and proximal RCA
Copy to: Dr. Bhargav Parker
[2023-11-11] MEDS: NSS 1000 IV (13:17)
--- NOTE | 2023-11-11 13:54 | PTCARENOTE ---
Received report from Jen ECHEVARRIA for shift relief. Pt's blood pressure is 80's/50's. Pt sleeping comfortably but awakens easily. Pt without complaints at this time. Aminata Echeverria NP made aware of pt's blood pressure. Will continue to monitor.
--- NOTE | 2023-11-11 15:28 | PTCARENOTE ---
Dr Randle at pt bedside speaking to pt and pt's .
== END 2023-11-11 16:15 | disposition home or self-care (01) ==
LOC: CATH 08:29
PROVIDERS: ATTENDING PHYSICIAN Internal Medicine Interventional Cardiology; FAMILY PHYSICIAN Family Medicine; OTHER PHYSICIAN Nuclear Medicine Nuclear Cardiology
DX: I25.10 Atherosclerotic heart disease of native coronary artery without angina pectoris (principal); I35.0 Nonrheumatic aortic (valve) stenosis; R07.89 Other chest pain; E78.5 Hyperlipidemia, unspecified; K21.9 Gastro-esophageal reflux disease without esophagitis; C91.10 Chronic lymphocytic leukemia of B-cell type not having achieved remission; Z85.46 Personal history of malignant neoplasm of prostate; Z87.891 Personal history of nicotine dependence; Z79.82 Long term (current) use of aspirin
CPT/HCPCS: C1769 ×2; C1894; 85347; 93005; 93456; 93571; Q9967

== ENCOUNTER 2023-12-27 05:06 | Inpatient (IN) | payer MEDICARE, SELFPAY ==
[2023-12-22 12:09] VITALS: BMI 32.7
[2023-12-22 12:41] LABS: % Basophils 0.5 % (0-2); % Eosinophils 5.3 % (0-6); % Immature Granulocytes 0.4 % (0-0.5); % Lymphocytes 30.3 % (20.5-51.1); % Monocytes 8.8 % (1.7-9.3); % Neutrophils 54.7 % (42.2-75.2); Absolute Eosinophils 0.4 10^3/uL (0-0.7); Absolute Lymphocytes 2.5 10^3/uL (1.2-3.4); Absolute Monocytes 0.7 10^3/uL (0.1-0.6); Absolute Neutrophils 4.4 10^3/uL (1.4-6.5); Hematocrit 38.3 % (39.0-52.0); Hemoglobin 12.3 g/dL (13.0-18.0); Mean Corp Hgb Conc. 32.1 g/dL (33.0-37.0); Mean Corpuscular Hgb 29.5 pg (27.0-31.0); Mean Corpuscular Volume 91.8 fL (80.0-94.0); Mean Platelet Volume 10.2 fL (7.4-10.4); Nucleated Red Blood Cells % 0 % (-); Platelet Count 234 10^3/uL (130-400); Red Blood Cell Count 4.17 10^6/uL (4.70-6.10); Red Cell Dist. Width 14.4 % (11.5-14.5); White Blood Cell Count 8.1 10^3/uL (4.8-10.8)
[2023-12-22 12:52] LABS: INR 1.04; PT 13.6 Sec (11.4-14.6)
[2023-12-22 12:53] LABS: APTT 31.2 Sec (23.4-35.0)
[2023-12-22 13:01] LABS: ALT (SGPT) 40 U/L (0-50); AST (SGOT) 41 U/L (17-59); Alkaline Phosphatase 49 U/L (38-126); Blood Urea Nitrogen 26 mg/dl (9-20); Calcium 9.4 mg/dl (8.4-10.2); Carbon Dioxide 24 mmol/L (22-30); Chloride 108 mmol/L (98-107); Direct Bilirubin 0.1 mg/dl (0.0-0.4); Estimated Creatinine Clearance 53 ml/min; Glucose 90 mg/dl (70-99); Potassium 5.1 mmol/L (3.5-5.1); Sodium 145 mmol/L (135-145); Total Bilirubin 0.6 mg/dl (0.2-1.3); Total Protein 6.4 g/dl (6.3-8.2); eGFR 56.23
[2023-12-22 13:07] LABS: Urine Albumin Negative (Neg - Trace); Urine Bilirubin Negative (Negative); Urine Character Clear (Clear); Urine Color Yellow; Urine Glucose Negative (Negative); Urine Ketone Negative (Negative); Urine Leukocyte Negative (Negative); Urine Nitrite Negative (Negative); Urine Occult Blood Negative (Negative); Urine Urobilinogen Negative (Neg - 1+)
[2023-12-22 13:14] LABS: Glycohemoglobin (HgbA1c) 5.7 % (4.0-5.6)
--- NOTE | 2023-12-22 14:57 | CM ---
CM met w/ patient, spouse/Laya during PATs for planned CABG/AVR 12/26.
Pt. resides w/ spouse in a private, 2 story home. There are no steps to enter the home. Functionally, patient is quite indep. w/ ADLs, mobility without the use of any assisted device. Pt. has Nebulizer and 'Respiratory vest' which he uses 2x/d.
Pt. has NO RX PLAN and uses [facility] for prescription needs.
Soap, shower instructions and Cardiac Surg. booklet provided.
Reviewed pre and post op routines.
Discussed post op restrictions to include lifting, driving, flying and sternal precautions.
Reviewed post op MD appointments, Cardiac Rehab and visit from CT Transitional Care RN.
Plan is for CT Surgery 12/26.
Anticipate DC to home once medically stable w/ CT Transitional Care RN.
CM to follow.
[2023-12-27] VITALS (18 sets, daily range): BP systolic 86–128; BP diastolic 44–77; BMI 31.3
[2023-12-27] MEDS: PROTONIX 40 MG PO (06:02)
[2023-12-27] MEDS: MAGNESIUM OXIDE 500 MG PO (06:02)
[2023-12-27] MEDS: BACTROBAN 2% OINTMENT 1 APPLIC NASAL ×2 (06:02→19:31)
--- NOTE | 2023-12-27 06:13 | W.CVOR.SURPR ---
CVOR Surgeon Immed Pre Op
-
I have examined this patient prior to performance of the scheduled procedure.
The patient's condition is unchanged from the time of the dictated/written History and
Physical and the patient is able to undergo the scheduled procedure.
AVR (bio) + CABG x 3-4 + JUSTIN Clip
MR appears functional - should improve
[2023-12-27] MEDS: LOPRESSOR 12.5 MG PO (06:33)
--- NOTE | 2023-12-27 07:34 | PTCARENOTE ---
Patient admitted to CVICU for same day CABG, AVR, JUSTIN clip. Vital signs assessed. Weight obtained. Surgically clipped and cleaned. Confirmed 2xshowers and NPO since yesterday. Transported to CVOR without incident.
[2023-12-27 07:39] LABS: Urine Albumin Negative (Neg - Trace); Urine Bilirubin Negative (Negative); Urine Character Clear (Clear); Urine Color Yellow; Urine Glucose Negative (Negative); Urine Ketone Negative (Negative); Urine Leukocyte Negative (Negative); Urine Nitrite Negative (Negative); Urine Occult Blood Negative (Negative); Urine Specific Gravity 1.015 (<1.030); Urine Urobilinogen Negative (Neg - 1+)
[2023-12-27 07:41] LABS: ACT+ - POC 98 Seconds (82-134)
--- NOTE | 2023-12-27 08:56 | CM ---
pt in OR today, cm to follow
[2023-12-27 08:57] LABS: ACT+ - POC 642 Seconds (82-134)
[2023-12-27 09:18] LABS: B.E. - POC -1.5 mmol/L; Glucose - POC 117 mg/dl (70-99); HCO3 - POC 23 mmol/L (21-29); Hematocrit - POC 36 % PCV (42-52); Hemodilution- POC No; Hemoglobin Calculated - POC 12.3; Ionized Calcium - POC 1.26 mmol/L (1.12-1.27); O2 Saturation %Calculated-POC 99.3 % (92-96); PCO2 - POC 40 mmHg (35-45); PO2 - POC 154 mmHg (80-100); Potassium - POC 4.6 mmol/L (3.6-5.0); Sodium - POC 140 mmol/L (135-145); pH - POC 7.38 (7.35-7.45)
[2023-12-27 09:32] LABS: ACT+ - POC 609 Seconds (82-134)
[2023-12-27 09:58] LABS: B.E. - POC 2.9 mmol/L; Glucose - POC 136 mg/dl (70-99); HCO3 - POC 28 mmol/L (21-29); Hematocrit - POC 28 % PCV (42-52); Hemodilution- POC Yes; Hemoglobin Calculated - POC 9.5; Ionized Calcium - POC 1.04 mmol/L (1.12-1.27); PCO2 - POC 44 mmHg (35-45); PO2 - POC 469 mmHg (80-100); POC Comment CPB; Potassium - POC 6.1 mmol/L (3.6-5.0); Sodium - POC 139 mmol/L (135-145); pH - POC 7.41 (7.35-7.45)
[2023-12-27 10:07] LABS: ACT+ - POC 504 Seconds (82-134)
[2023-12-27 10:28] LABS: B.E. - POC 2.5 mmol/L; Glucose - POC 190 mg/dl (70-99); HCO3 - POC 27 mmol/L (21-29); Hematocrit - POC 27 % PCV (42-52); Hemodilution- POC Yes; Hemoglobin Calculated - POC 9.3; Ionized Calcium - POC 1.05 mmol/L (1.12-1.27); O2 Saturation %Calculated-POC 99.9 % (92-96); PCO2 - POC 41 mmHg (35-45); PO2 - POC 339 mmHg (80-100); POC Comment CPB; Potassium - POC 5.8 mmol/L (3.6-5.0); Sodium - POC 139 mmol/L (135-145); pH - POC 7.43 (7.35-7.45)
[2023-12-27 10:38] LABS: ACT+ - POC 486 Seconds (82-134)
[2023-12-27 10:53] LABS: B.E. - POC 1.7 mmol/L; Glucose - POC 199 mg/dl (70-99); HCO3 - POC 28 mmol/L (21-29); Hematocrit - POC 27 % PCV (42-52); Hemodilution- POC Yes; Hemoglobin Calculated - POC 9.2; Ionized Calcium - POC 1.08 mmol/L (1.12-1.27); O2 Saturation %Calculated-POC 99.9 % (92-96); PCO2 - POC 48 mmHg (35-45); PO2 - POC 333 mmHg (80-100); POC Comment CPB; Potassium - POC 5.4 mmol/L (3.6-5.0); Sodium - POC 139 mmol/L (135-145); pH - POC 7.36 (7.35-7.45)
[2023-12-27 11:05] LABS: ACT+ - POC 565 Seconds (82-134)
[2023-12-27 11:36] LABS: B.E. - POC 1.7 mmol/L; Glucose - POC 189 mg/dl (70-99); HCO3 - POC 26 mmol/L (21-29); Hematocrit - POC 27 % PCV (42-52); Hemodilution- POC Yes; Hemoglobin Calculated - POC 9.3; Ionized Calcium - POC 1.05 mmol/L (1.12-1.27); O2 Saturation %Calculated-POC 99.9 % (92-96); PCO2 - POC 40 mmHg (35-45); PO2 - POC 309 mmHg (80-100); POC Comment REWARM; Potassium - POC 4.8 mmol/L (3.6-5.0); Sodium - POC 142 mmol/L (135-145); pH - POC 7.43 (7.35-7.45)
[2023-12-27 11:39] LABS: ACT+ - POC 93 Seconds (82-134)
[2023-12-27 11:43] LABS: B.E. - POC -2.1 mmol/L; Glucose - POC 172 mg/dl (70-99); HCO3 - POC 23 mmol/L (21-29); Hematocrit - POC 27 % PCV (42-52); Hemodilution- POC Yes; Hemoglobin Calculated - POC 9.2; Ionized Calcium - POC 1.33 mmol/L (1.12-1.27); O2 Saturation %Calculated-POC 99.6 % (92-96); PCO2 - POC 41 mmHg (35-45); PO2 - POC 187 mmHg (80-100); POC Comment POST; Sodium - POC 142 mmol/L (135-145); pH - POC 7.37 (7.35-7.45)
--- NOTE | 2023-12-27 12:27 | W.PN.CT.SURG ---
CT Surgery Operative Note
-
CARDIAC SURGERY OPERATIVE REPORT
Preoperative Diagnosis: Aortic valve stenosis, moderately severe with multivessel coronary artery disease involving the proximal LAD
Postoperative Diagnosis: Same
Procedure(s) Performed:
1. Standard sternotomy with aortic and right atrial cannulation
2. Coronary artery bypass grafting x 4 (In situ PAYAN to LAD, Ao to RSVG to Diag seq to OM2/LPL, Ao to RSVG to RPDA)
3. Surgical aortic valve replacement [23mm biological valve]
4. Trans-esophageal echocardiography
5. Placement of temporary ventricular pacing
Date of Surgery: 12/27/2023
Comorbidities:
1. Multivessel coronary disease with previous NM and stenting and recent abnormal stress test
2. Moderately-severe aortic valve stenosis
3. Hyperlipidemia
4. Hypertension
5. Villareal's esophagus
6. History of CLL
7. Vestibular neuritis
8. Colonic Extavia
9. Peptic ulcer disease
10. Thyroid nodules
11. History of vertebral fracture
11. Inguinal hernia
12. Prostate cancer treated with chemotherapy
13. Fatty liver new
14. COPD
Attending Surgeon: Alfredo Martínez MD, MS
Assistants: Lorie Moon PA-C (present and necessary to assistant prosecuting attorney, endoscopic vein harvest, retraction, suction, exposure, suture management, and wound closure under my direction)
Anesthesiology: Randy Ha MD and Joseph Garcia CRNA
Scrub and Circulating RNs: Aminata Uriostegui, RN, Ascencion Olivier RN
Public Service Representative: Cesar Delgado CCP
Anesthesia: GETA
EBL: per perfusion records
Products: None
CPB Time: 148 minutes
Aortic Cross Clamp Time: 129 minutes
Indication(s) for Procedures: This is a 78-year-old male who previously was in the emergency department back in October 2023 at which point he had an abnormal stress test with evidence of inferior apical scarring mild to mid anterior anterolateral
ischemia. He subsequently underwent a left heart cath which demonstrated multivessel coronary artery disease as well as mildly severe aortic valve stenosis. His mean gradient on echocardiogram will range between 30 and 32 mmHg. LIZA of the valve
was calculated to be around 0.8. The vessel nature of his coronary disease as well as his aortic valve stenosis, multidisciplinary team discussion came to the consensus that he would be better served with surgical aortic valve replacement along
with CABG.
Aortic Valve Description: Heavily calcified towards the body in the free margin. The annulus was relatively free of calcium except for the noncoronary cusp which had significant calcification into the annulus. The left and right coronary ostia
within normal anatomic positions.
Conduit(s) Quality:
PAYAN -excellent/good size uniform, excellent flow
RSVG -good/good size, uniform minimal varicosities
Target(s) Quality:
RCA/PDA -excellent/easily accommodated a 1.5 mm probe, had a flow of approximately 60 cc a minute at a pressure of 80. Flow probe assessment demonstrated excellent mean flow as well as PI.
OM2 -good/small size target but able to come a 1.5 mm probe. Test dosing antegrade demonstrated to flow approximately 50 cc a minute at a pressure of 80 mmHg. Flow probe assessment demonstrated excellent mean flow and pulsatility index.
Diagonal -excellent/good sized target able to fit a 1.5 mm probe easily, test dosing antegrade with the distal sequential clamped off demonstrated mean flow approximately 40 to 50 cc a minute at a pressure of 80 mmHg. Flow probe assessment
demonstrated excellent mean flow and low pulsatility index
LAD -excellent/somewhat intramyocardial. The fact that able to find a good segment that accommodated a 2 mm probe easily. Good visual flow in the LAD territory. Flow probe assessment had a mean flow approximately 15 cc a minute with a pulse to
the index of below 4 mmHg
Findings: LVEF on intraoperative ADAMA was 60% and 60% post procedure with no new regional wall motion abnormalities. He did have some apical scarring and regional wall motion abnormalities prior documented on his ADAMA as well as stress test. This
remained the same postoperatively. The aortic valve was replaced with a total of 14 nonpledgeted 2 Ethibond sutures secured with core knots. These were placed in an inverted fashion from LVOT through annulus through sewing cuff. There was no
prosthetic PVL or AI (trace central AI). The PAYAN was harvested in a skeletonized fashion. Following bypass grafting, test dose cardioplegia was given down each distal and confirmed patency and hemostasis. Each distal was probed both proximally and
distally to confirm disease and patency, respectively. There were no new regional wall motion abnormalities. Flow probe assessment demonstrated excellent mean flows in all grafts and low pulsatility index. After coming off cardiopulmonary bypass
he was back in sinus rhythm. He did not require significant. He did not require blood products.
Specimen(s): Aortic valve leaflet.
Prosthesis:
1. 23 mm bioprosthesis Delarosa Fluencys Resilia, serial number: [id number].
Description of Procedure: The patient was taken to the operating room. Their identity and procedure to be performed were verified and they were positioned supine on the operating table. Induction via general anesthesia with endotracheal intubation
was performed and central venous access and arterial monitoring were inserted. A preoperative transesophageal echocardiogram was performed. The patient was then prepped and draped from chin to feet in a sterile fashion. A preoperative time-out was
performed with all members of the team present. A midline chest incision was performed along with median sternotomy. Simultaneous endoscopic access of the right lower extremity for saphenous vein harvest was obtained along with administration of an
initial 5,000 units of IV heparin. In order to obtain an adequate additional segment of vein, the left thigh was also harvested. A RulTract sternal retractor was positioned to exposure the left internal mammary bed. The mammary was harvested in a
skeletonized fashion and found to have good flow. A bulldog clamp was applied to the distal end of the mammary after dividing it. It was wrapped in a papaverine soaked RayTec and replaced back into the left hemithorax. The RulTract was exchanged for
a median sternal retractor. The innominate vein was isolated. Full heparinization was given (a total of 50,000 units). I created a pericardial well. The aortic cannulation site was chosen where it was soft, pliable, and free of calcium. Cannulation
was performed with an arterial cannula in the ascending aorta and a triple-stage venous cannula through the right atrial appendage. The arterial cannula line had an appropriate bounce and correlating pressures with test dosing. Next, a root
vent/antegrade cannula was inserted into the ascending aorta. The ACT was confirmed to be over 400 and retrograde autologous priming was performed before commencing cardiopulmonary bypass. The pulmonary artery was away from the aorta to
facilitate a clamp site. As he had a mild to moderate degree of aortic valve insufficiency presurgery, a retrograde coronary sinus cath was placed via the right atrium. Under ADAMA and manual guidance. The aortic cross-clamp was placed after
decreasing the flow on the bypass and mean arterial pressure. A total of 1.0L initial dose of antegrade followed by 200 cc of retrograde Del-Nido cardioplegia solution was given and planned for re-dosing every 75 minutes as necessary. There was
rapid electro-mechanical arrest of the heart at 400 cc of cardioplegia. The left ventricle was observed for distention on echocardiogram and manual palpation. Cold slush was placed into a sponge and topically on the RV while we systemically cooled
to 34 degrees centigrade.
The graft was measured for length to the aorta and cut. A suitable site on the second obtuse marginal was chosen. We dissected and prepared the distal target in a similar fashion. An end-to-side anastomosis was created with a 8-0 prolene and secured
with a micro corknot. Antegrade cardioplegia was administered into the graft. Appropriate hemostasis and flow were confirmed. The graft was measured for length to the aorta and cut. Next a suitable target the bifurcation the diagonal vessel was
repaired in a similar fashion. Vein graft was positioned in order to accommodate a sequential graft. The underbelly of the vein graft had a small incision made with 11 blade and enlarged with Tran scissors. A ydht-rl-pfea anastomosis was created
with 7-0 Prolene in a running fashion. I tested the diagonal anastomosis by clamping off the sequential portion of the graft and given down antegrade cardioplegia. There was excellent flow and hemostasis at this point. The bulldog clamp was
removed and the vein graft and flows were continued to be assessed. A suitable target on the mid/distal left anterior descending was identified. We dissected and prepared the distal target in a similar fashion. We retrieved the PAYAN from the chest
and created a pericardial opening while being cognizant of the phrenic nerve to facilitate the course of the mammary. The distal end of the mammary was prepped and beveled to size. We verified orientation and length of the CHAVA and found brisk flow.
An end-to-side anastomosis was created with a 7-0 prolene. We temporarily released the bulldog clamp on the mammary to inspect flow. Perfusion to the LAD territory was visualized and hemostasis was confirmed. The bull clamp was replaced on the
mammary. I positioned the heart to expose the distal right coronary at the posterior descending artery. A [place] blade was used to expose the coronary and perform the arteriotomy. Coronary Tran scissors were used to enlarge the incision. The
saphenous vein was trimmed and beveled to an appropriate size. The distal anastomosis was performed using 7-0 prolene in an end-to-side fashion. Antegrade cardioplegia was administered into the graft. Appropriate hemostasis and flow were confirmed.
Carbon dioxide was used to flood the field. I turned my attention to the aortic valve and manually identified the location of the right coronary take off. An aortotomy was made approximately 1.5cm above the sinotubular junction. The location of both
left and right coronary vessels were visualized in the root. The aortic valve was inspected and found to be heavily calcified. The leaflets were excised and sent for pathological assessment. The annulus was debrided of any calcium. The root and left
ventricular outflow tract were thoroughly irrigated to remove any debris. A total of 14, nonpledgeted 2-0 ethibond annular sutures were placed [id number] circumferentially. These were brought through the sewing cuff of the prosthetic valve which
as then parachuted into place. The left and right coronary ostia were visualized and were unobstructed by the valve. A Cor-Knot device was used to secure the annular sutures. The valve was inspected and was well seated. The aortotomy was
approximated with 4-0 prolene in two layers. The heart was filled and the root was distended with antegrade cardioplegia to make final assessment of graft length and orientation. I created 2 aortotomies using a #11 blade then a 4.0mm aortic punch
above the aortic suture line. The proximal anastomoses were created in an end-to-side fashion using 6-0 prolene. At the same time, we started to re-warm to 36.5 degrees centigrade. The bulldog clamp was removed from the mammary and temporary bipolar
ventricular pacing wires were placed on the base of the right ventricle. The patient was placed in a Trendelenburg position and flows on bypass were lowered. The aortic cross clamp was removed and flows were slowly brought back up. The aortotomy
appeared hemostatic. All bypass grafts were inspected and were free from kinking or twisting. The distal and proximal anastomoses appeared hemostatic. De-airing maneuvers were performed. Transesophageal echocardiography revealed no paravalvular leak
and appropriate prosthetic function. Once de-airing was satisfactory, the left ventricular and root vents were removed. After verifying acceptable parameters, we initiated weaning from cardiopulmonary bypass. Once we were off cardiopulmonary bypass,
the venous cannulas was clamped and removed. A test dose of protamine was administered and the patient was monitored for any adverse reaction before resuming protamine. Once half of the protamine dose was delivered, pump suckers were turned off and
the systolic blood pressure was lowered for aortic decannulation. The aortic cannula was removed and pursestrings were tied down. All cannulation sites were oversewn with a 4-0 Prolene. The aortic line, proximal, and distal coronary anastomoses were
hemostatic. The mammary bed was inspected and hemostasis was confirmed. Once the mediastinum was hemostatic, a 19Fr Trip drain was placed in the left pleural cavity and two 24Fr Trip drains were placed within the pericardium. The sternum was
approximated with 4 #7 single and 3 #8 double stainless steel wires. Fascia was approximated with #1 vicryl suture. The subcutaneous, dermis and epidermis were closed in layers in a running fashion. The skin wound was cleansed and dressed.
All instrument, sponge, and needle counts were confirmed to be correct x 2 at the end of the operation. The patient was transferred to the cardiac intensive care unit in critical but stable condition.
I, Dr. Alfredo Martínez, was present, scrubbed for, and performed all critical elements of this procedure.
Alfredo Martínez MD, MS
Cardiothoracic Surgeon
[facility]
This operative dictation was created using the [employer] dictation system. Please excuse any grammatical, typographical, or 'sound alike' errors
--- NOTE | 2023-12-27 12:30 | PTCARENOTE ---
Patient received from [facility] at 1230. Intubated and sedated, Sinus lena on the monitor, heart sounds regular. RIJ swan-frankie(@42)/Cordis, L radial art line, and 20 g PIV x 1 in RAC; all lines leveled and zeroed; ETT 8, 23 @ the R lip, on ventilator,
SIMV 40/5/14/500, lungs clear throughout, SpO2 93-95%; CT x 3 L pleural, mediastinal x2 present, no air leak or crepitus noted; BS hypoactive, abdomen round, SNT; Orozco catheter present draining clear, yellow urine; palpable pulses throughout, no
edema noted. Midsternal chest incision with Dermabond CDI, chest tube dressings CDI, skin cool. Mak hugger applied for hypothermia. On Insulin, precedex, and levo. See nursing documentation for further details.
[2023-12-27 12:42] LABS: Glucose - Point of Care 148 mg/dl (70-99)
[2023-12-27 12:45] LABS: B.E. -4.1 mmol/L; HCO3 21.6 mmol/L (21-28); Ionized Calcium 1.24 mMOL/L (1.15-1.33); O2 Saturation % 97.9 % (94-98); PCO2 41 mmHg (35-48); PO2 113 mmHg (83-108); Potassium 4.4 mMOL/L (3.5-5.1); Sodium 138 mMOL/L (136-145); pH 7.33 (7.35-7.45)
[2023-12-27 12:54] LABS: Hematocrit 28.8 % (39.0-52.0); Hemoglobin 9.7 g/dL (13.0-18.0); Platelet Count 228 10^3/uL (130-400)
[2023-12-27 12:55] LABS: INR 1.52; PT 18.1 Sec (11.4-14.6)
[2023-12-27 12:56] LABS: APTT 33.3 Sec (23.4-35.0)
[2023-12-27] MEDS: DILAUDID 0.25 MG IV (12:56)
[2023-12-27 13:03] LABS: Blood Urea Nitrogen 23 mg/dl (9-20); Estimated Creatinine Clearance 63 ml/min; Glucose 147 mg/dl (70-99); Magnesium 3.6 mg/dl (1.6-2.3)
[2023-12-27] MEDS: ANCEF 10 IV ×2 (13:35)
[2023-12-27] MEDS: NSS 500 IV (13:35)
[2023-12-27] MEDS: LR 500 IV (13:41)
[2023-12-27] MEDS: TYLENOL PO (13:46)
[2023-12-27 14:03] LABS: Glucose - Point of Care 133 mg/dl (70-99)
[2023-12-27 14:07] LABS: Mixed Venous O2 Saturation 48.7 %
--- NOTE | 2023-12-27 14:28 | PTCARENOTE ---
Mixed venous resulted 48.7, CI 1.08, CO 2.28, SVR 2069; [facility] notified, new orders being placed for Dobutamine at 3 mcg/kg/min.
[2023-12-27] MEDS: DOBUTREX 500 MG 250 IV (14:29)
--- NOTE | 2023-12-27 14:38 | CON.INTV ---
Consultation
Consultation Request
Date/Time Consultation Requested: 12/27/2023
Date/Time Consultation Performed: 12/27/2023
Requesting Provider: Dr. Martínez
Performing Provider: Dr. Perfecto Ramírez
Reason for Consultation: Status post AVR/CABG
Medical History
-
History of Present Illness:
78-year-old man who recently has been diagnosed with severe aortic valve stenosis, also underwent cardiac catheterization as the patient has history of prior coronary artery disease with stenting. On repeat cardiac catheterization there was
significant RCA disease. He was deemed candidate for revascularization as well as AVR.
Admitted 12/27/2023. Surgery underwent by Dr. Martínez without complications.
Patient currently in the ICU, intubated, on sedation and mechanical ventilation.
Record review.
Patient unable to provide history at this point
Chest tube in place without air leak.
Past Medical History
Past Medical History: Other (See assessment and plan)
Social History
Tobacco: Former Smoker (Quit longer than 10 years ago)
Alcohol: Occasional (3-4 glasses/week.)
Drug: None
Personal:
Living: With Family
Employment: Retired ([employer])
Family History
Family History: Unable to Obtain
Allergies / Home Medications
Allergies
Allergy/AdvReac Type Severity Reaction Status Date / Time
atorvastatin calcium Allergy muscle Verified 11/11/23 09:50
[From Lipitor] aches
bupivacaine Allergy Anaphylaxis Verified 12/26/23 13:55
celecoxib [From Celebrex] Allergy duodenal Verified 11/11/23 09:50
ulcers
codeine [Codeine] Allergy DIZZINESS, Verified 11/11/23 09:50
CHILLS
fentanyl [Fentanyl] Allergy Anaphylaxis Verified 11/11/23 09:50
lidocaine Allergy Anaphylaxis Verified 11/11/23 09:50
prilocaine Allergy Anaphylaxis Verified 12/26/23 13:55
procaine [Procaine] Allergy Anaphylaxis Verified 11/11/23 09:50
Home Medications
�Medication �Instructions �Recorded �Confirmed �Last Taken �Type
azelastine 137 mcg (0.1 %) nasal 2 spray intranasal BID Allergies 05/31/13 12/27/23 1 Month Ago History
spray ~11/27/23
calcium carbonate (Calcium 600) 600 mg PO DAILY Supplement 05/31/13 12/27/23 12/18/23 History
esomeprazole magnesium 40 mg 40 mg PO DAILY Gastrointestinal 05/31/13 12/27/23 1 Day Ago History
capsule,delayed release (Nexium) Issue ~12/26/23
ueevoauhov-sbjqobagbg-bdtkdrqf-hyalur 1 cap PO DAILY Supplement 05/31/13 12/27/23 12/18/23 History
ac 375 mg-300 mg-175 mg-2 mg cap
levocetirizine 5 mg tablet 5 mg PO BID Allergies 05/31/13 12/27/23 12/26/23 History
nitroglycerin 0.4 mg sublingual 0.4 mg sublingual [id number] PRN 05/31/13 12/27/23 1 Month Ago History
tablet chest pain ~11/27/23
aspirin 81 mg tablet,delayed 81 mg PO DAILY Blood Clot 08/26/14 12/27/23 12/18/23 History
release Prevention/Tx
docosahexaenoic acid (dha)-epa 120 3,000 mg PO DAILY High Cholesterol 08/26/14 12/27/23 12/18/23 History
mg-180 mg capsule
metoprolol tartrate 25 mg tablet 12.5 mg PO HS Heart 08/26/14 12/27/23 12/26/23 History
Disease/Condition
multivitamin with folic acid 400 1 tab PO DAILY Supplement 08/26/14 12/27/23 12/18/23 History
mcg tablet (Tab-A-Milena)
albuterol sulfate 90 mcg/actuation 2 puff inhalation R TIDPRN PRN 11/03/16 12/27/23 01/18/21 History
aerosol inhaler wheezing /sob ##0
furosemide 20 mg tablet 20 mg PO DAILY Fluid 11/03/16 12/27/23 12/26/23 History
Retention/Swelling ##0
L.acidoph, paracasei,B. lactis 10 1 ea PO DAILY Gastrointestinal 12/18/17 12/27/23 12/18/23 History
billion cell capsule Issue
escitalopram oxalate 10 mg tablet 5 mg PO QPM Mental Health/Anxiety 12/18/17 12/27/23 12/26/23 History
arformoterol 15 mcg/2 mL solution 15 mcg inhalation R BID 01/18/21 12/27/23 12/27/23 History
for nebulization (Brovana) Lung/Breathing Issues
budesonide 0.5 mg/2 mL suspension 0.5 mg inhalation R DAILY 01/18/21 12/27/23 12/27/23 History
for nebulization Lung/Breathing Issues
pravastatin 40 mg tablet 80 mg PO HS High Cholesterol 01/18/21 12/27/23 12/26/23 History
revefenacin 175 mcg/3 mL solution 175 mcg inhalation R QPM 01/18/21 12/27/23 12/26/23 History
for nebulization (Yupelri) Lung/Breathing Issues
tamsulosin 0.4 mg capsule 0.4 mg PO DAILY Urinary Issue 01/18/21 12/27/23 1 Week Ago History
~12/20/23
ezetimibe 10 mg tablet 10 mg PO HS High Cholesterol 11/11/23 12/27/23 1 Day Ago History
~12/26/23
famotidine 20 mg tablet (Heartburn 20 mg PO DAILY PRN GERD 11/11/23 12/27/23 Unknown History
Prevention)
isosorbide mononitrate 30 mg 30 mg PO DAILY Heart 11/11/23 12/27/23 12/26/23 History
tablet,extended release 24 hr Disease/Condition
Review of Systems
-
Unable to Obtain full review of systems at this time due to: Acuity and Patient Intubation
Vitals / Labs / Diagnostic Testing
Vital Signs
Temp Pulse Resp BP Pulse Ox
96.9 F L 53 14 128/70 94
12/27/23 14:00 12/27/23 14:05 12/27/23 14:05 12/27/23 13:10 12/27/23 14:05
Lab Data
12/27/23 12:39
Laboratory Results
12/27/23
12:39
PT 18.1 H
INR 1.52
APTT 33.3
pH 7.33 L
pCO2 41
pO2 113 H
HCO3 21.6
O2 Delivery Level
Diagnostic Testing:
Physical Exam
-
HEENT: Normocephalic and Other (ET tube in place)
Cardiovascular: S1/S2
Respiratory: Clear and Non-Labored Respirations
GI: Soft and Non Distended
Neurology: Other (Sedated, mechanical ventilation)
Skin: Warm
General: Comfortable
Assessment
-
Status post AVR/CABG
Postoperative mechanical ventilation
Postoperative anemia
Conditions present prior admission:
Coronary artery disease with prior stents
History of sinusitis
Hiatal hernia
History of peptic ulcer disease
Thyroid nodules
History of prostate cancer in 2014 status postchemotherapy
Fatty liver
CLL
Obesity
COPD-not followed locally-on Brovana/Yupelri/budesonide
Spirometry 12/22/2023: FEV1/FVC 61%, FEV1 2.34 L - 85%, FVC 3.31 L - 90% mild airflow obstruction
Assessment and plan:
He is doing well postop-currently on mechanical ventilation and appears comfortable.
ABG reviewed: Adequate oxygenation and ventilation
Continue SIMV mode with no change
Spontaneous breathing trial per protocol once sedation wears off.
Anemia noted-no evidence of acute bleeding
Follow H&H serially
Hemodynamics -acceptable
Chest tube with no excessive drainage-no air leak.
Chest x-ray reviewed: With no pneumothorax or fluid collections.
Remain nothing by mouth
Head of the bed elevation
Glycemic control per protocol
DVT prophylaxis when safe from the surgical perspective.
Critical care statement: A total of 32 minutes of critical care time was provided for this patient today. This includes management of unstable vital signs, evaluation of the patient at bedside, reviewing the patient's pertinent medical records
including ventilator settings, arterial blood gases, radiographs, microbiology, laboratory evaluations and discussion with primary team, critical care nursing, and respiratory therapy.
--- NOTE | 2023-12-27 14:46 | W.PN.CARDCBS ---
Addendum entered and electronically signed by Peyman Spear MD 12/27/23 16:00:
patient seen and examined
agree with CONSTRUCTION ECONOMIST note and assessment
agree with CONSTRUCTION ECONOMIST plan
exam:
sternum cdi
cor regular soft rub
mediastinal tubes noted
right cordis noted
intubated and sedated
Impression:
CAD
s/p JOHNY to RCA 02/2009
NSTEMI and JOHNY to Diag-1 and OM-1 05/2010
s/p CABG with PAYAN to LAD, SVG sequential to Diab and OM-2/LPL, SVG to RPDA 12/27/23s/p tissue AVR for moderate to severe
Mod MR by echo 11/04/23
CLL
Prostate cancer
h/o sinus bradycardia and 6 second pause leading to syncope 2016
h/o GERD and Villareal's
Echo 11/04/2023: EF 60 to 65%, moderate MR, moderate AAS mean gradient 29 mmHg, LIZA 0.8 cm sq, mild aortic insufficiency
Plan:
-Patient was seen in ER on 11/04/2023 for chest pain. He then had an abnormal stress test with evidence of small mild inferoapical scar and mild mid anterior, anterolateral ischemia. The patient was then referred for cardiac catheterization on
11/11/2023 he was found to have multivessel CAD including significant stenosis in the mid LAD spanning the origin of a previously placed stent in the diagonal branch. There is also a 65 to 70% stenosis in the proximal RCA within the previously
stented segment. Additionally echo from 11/04/2023 showed moderate with mean gradient 29 mmHg and LIZA 0.8 cm sq. Patient was seen in consultation by CT surgeon and was recommended CABG and tissue AVR which was performed on 12/27/2023.
-Dobutamine gtt being started at 1430
-Levo at 1
-Cardene at 5
-Post-op ECG reviewed by me with HR 56, sinus lena, no ischemic changes. Tele reviewed by me is SR with HR 76.
-Patient was taking Lasix 20 mg PO daily prior to admission. Will follow volume status post-op.
-LDL 72 on 09/21/23. Patient was taking pravastatin 80 mg daily and Zetia 10 mg daily prior to admission
Original Note:
Today's Communication / Plan
-
Now on dobutamine, Levo and Cardene
Impression / Plan
-
PCP:
Primary Earthmoving Plant Operator: Dr. Parker
Impression:
CAD
s/p JOHNY to RCA 02/2009
NSTEMI and JOHNY to Diag-1 and OM-1 05/2010
s/p CABG with PAYAN to LAD, SVG sequential to Diab and OM-2/LPL, SVG to RPDA 12/27/23
s/p tissue AVR for moderate to severe
Mod MR by echo 11/04/23
CLL
Prostate cancer
h/o sinus bradycardia and 6 second pause leading to syncope 2016
h/o GERD and Villareal's
Echo 11/04/2023: EF 60 to 65%, moderate MR, moderate AAS mean gradient 29 mmHg, LIZA 0.8 cm sq, mild aortic insufficiency
Plan:
-Patient was seen in ER on 11/04/2023 for chest pain. He then had an abnormal stress test with evidence of small mild inferoapical scar and mild mid anterior, anterolateral ischemia. The patient was then referred for cardiac catheterization on
11/11/2023 he was found to have multivessel CAD including significant stenosis in the mid LAD spanning the origin of a previously placed stent in the diagonal branch. There is also a 65 to 70% stenosis in the proximal RCA within the previously
stented segment. Additionally echo from 11/04/2023 showed moderate with mean gradient 29 mmHg and LIZA 0.8 cm sq. Patient was seen in consultation by CT surgeon and was recommended CABG and tissue AVR which was performed on 12/27/2023.
-Dobutamine gtt being started at 1430
-Levo at 1
-Cardene at 5
-Post-op ECG reviewed by me with HR 56, sinus lena, no ischemic changes. Tele reviewed by me is SR with HR 76.
-Patient was taking Lasix 20 mg PO daily prior to admission. Will follow volume status post-op.
-LDL 72 on 09/21/23. Patient was taking pravastatin 80 mg daily and Zetia 10 mg daily prior to admission
Progress Note - Earthmoving Plant Operator
Subjective
Date of Service: December 27, 2023
Intubated and sedated
Objective
Labs:
12/27/23 12:39
Labs
Hgb 9.7 g/dL (13.0-18.0) L D 12/27/23 12:39
Hct 28.8 % (39.0-52.0) L 12/27/23 12:39
Plt Count 228 10^3/uL (130-400) 12/27/23 12:39
PT 18.1 Sec (11.4-14.6) H 12/27/23 12:39
INR 1.52 12/27/23 12:39
APTT 33.3 Sec (23.4-35.0) 12/27/23 12:39
Sodium 145 mmol/L (135-145) 12/22/23 12:21
Potassium 5.1 mmol/L (3.5-5.1) 12/22/23 12:21
BUN 23 mg/dl (9-20) H 12/27/23 12:39
Creatinine 1.1 mg/dL (0.7-1.3) 12/27/23 12:39
Glucose 147 mg/dl (70-99) H 12/27/23 12:39
Vital Signs and I&O:
Vital Signs
Temp Pulse Resp BP Pulse Ox
96.9 F L 53 14 128/70 94
12/27/23 14:00 12/27/23 14:05 12/27/23 14:05 12/27/23 13:10 12/27/23 14:05
Vital Signs
Temp Pulse Resp BP Pulse Ox
96.9 F L 53 14 128/70 94
12/27/23 14:00 12/27/23 14:05 12/27/23 14:05 12/27/23 13:10 12/27/23 14:05
Intake & Output
12/25/23 12/26/23 12/27/23 12/28/23
06:59 06:59 06:59 06:59
Intake Total 568 / 568
Output Total 190 / 190
Balance 378 / 378
Physical Exam
Physical Exam
GEN: Intubated and sedated
HEENT: MMM
LUNGS: Intubated and on the ventilator
CV: SR on tele
ABD: ND
EXT: No edema B/L
SKIN: No rash
[2023-12-27] MEDS: CARDENE 200 IV (14:53)
--- NOTE | 2023-12-27 14:59 | PTCARENOTE ---
Funmilayo Moon CVPA at bedside, Nitro switched to Cardene, see MAR
[2023-12-27] MEDS: VENTOLIN NEBULES 2.5 MG INH ×2 (15:03→19:17)
[2023-12-27 15:06] LABS: Glucose - Point of Care 126 mg/dl (70-99)
--- NOTE | 2023-12-27 15:19 | PTCARENOTE ---
Dr. Ramírez at bedside, FiO2 60% and PEEP to 8 on ventilator, patient SpO2 now 93%.
[2023-12-27] MEDS: PACERONE PO ×2 (15:44→22:29)
[2023-12-27] MEDS: NOVOLOG FLEXPEN SC (15:44)
[2023-12-27] MEDS: NEURONTIN PO (15:44)
[2023-12-27 16:08] LABS: Glucose - Point of Care 117 mg/dl (70-99)
[2023-12-27 16:33] LABS: Hematocrit 30.4 % (39.0-52.0); Hemoglobin 10.1 g/dL (13.0-18.0); Platelet Count 235 10^3/uL (130-400)
[2023-12-27] MEDS: OFIRMEV 100 IV (16:34)
[2023-12-27 17:03] LABS: B.E. -3.6 mmol/L; HCO3 21.5 mmol/L (21-28); Ionized Calcium 1.17 mMOL/L (1.15-1.33); O2 Saturation % 95.4 % (94-98); PCO2 38 mmHg (35-48); PO2 72 mmHg (83-108); Potassium 5.1 mMOL/L (3.5-5.1); Sodium 136 mMOL/L (136-145); pH 7.36 (7.35-7.45)
[2023-12-27 17:04] LABS: Glucose - Point of Care 111 mg/dl (70-99)
--- NOTE | 2023-12-27 17:21 | PTCARENOTE ---
Patient pO2 72 and iCal 1.17 on ABG - ALICJA aware, patient to be extubated to mid flow oxygen, awaiting CaCl order.
--- NOTE | 2023-12-27 17:30 | PTCARENOTE ---
Patient extubated to mid flow oxygen without issues. Oxygen saturation 98% on 15 LPM mid flow nasal cannula. Patient's at bedside, questions encouraged. Assessment of needs ongoing. Call escoto within reach.
--- NOTE | 2023-12-27 17:42 | RESPNOTE ---
17:25 extubated patient and placed on 15L mid flow 92%
[2023-12-27] MEDS: CALCIUM CHLORIDE 10% SYRINGE 60 MG IV ×2 (18:01→20:39)
[2023-12-27 18:17] LABS: B.E. -3.8 mmol/L; HCO3 21.5 mmol/L (21-28); O2 Saturation % 98.7 % (94-98); PCO2 39 mmHg (35-48); PO2 153 mmHg (83-108); pH 7.35 (7.35-7.45)
[2023-12-27 19:06] LABS: Glucose - Point of Care 115 mg/dl (70-99)
[2023-12-27] MEDS: LEXAPRO PO (19:07)
[2023-12-27] MEDS: ANCEF 5 IV (19:30)
[2023-12-27] MEDS: SENOKOT-S 1 TABLET PO (19:30)
[2023-12-27] MEDS: LOW STRENGTH ASPIRIN 81 MG PO (19:30)
[2023-12-27] MEDS: FLEXERIL 5 MG PO (19:37)
--- NOTE | 2023-12-27 19:41 | PTCARENOTE ---
Care of patient continued. Patient weaned from 15 L midflow to 10 LPM, O2 sats WNL. Patient's arrived back to bedside, teaching provided regarding splinting while coughing/changing positions. Patient tolerating small sips of clears and ice
chips. PO medications tolerated. C/o mild pain in his back with inspiration, see MAR for pharmacological intervention. Assessment of needs ongoing.
--- NOTE | 2023-12-27 20:00 | PTCARENOTE ---
Received pt from [facility]. pt resting comfortably in bed with at bedside. pt is s/p CABGx4 and av replacement. pt is AAOx4, states pain is 3/10, see MAR. NSR on monitor. VSS. heart sounds audible, radial and DP pulses palpable, +1 UEE, temp
epicardial V wires set to VVI HR of 40, MA of 20, Mv of 2. lungs diminished at b/l bases, spo2 95% on 10L midflow NC, left pleural and x2 MS CT- 20 wall suction, no air leaks, no crepitus, to tidaling. hypo active BS x4 quadrants, abdomen soft non
tender. pt voiding clear yellow urine via obrien catheter. surgical sites maintained. right IJ cordis, swan @ 42, left radial A-line, and PIV all leveled, zeroed, maintained. insulin, dobutamine, and Levophed infusing.
[2023-12-27] MEDS: SODIUM BICARBONATE 50 MEQ IV (20:26)
[2023-12-27 21:02] LABS: Glucose - Point of Care 103 mg/dl (70-99)
[2023-12-27] MEDS: TYLENOL 1000 MG PO (22:29)
[2023-12-27] MEDS: NEURONTIN 100 MG PO (22:29)
[2023-12-27] MEDS: DILAUDID 0.5 MG IV (22:30)
[2023-12-27] MEDS: ZETIA 10 MG PO (22:34)
--- NOTE | 2023-12-27 22:36 | W.PN.CT ---
Today's Communication / Plan
-
Plan:
-No major issues overnight. Hemodynamically and neurologically intact
-Successfully extubated on 12/27/23 @ 1730
-Labile BP postop, off and on Levophed gtt overnight. Currently off. Remains on Dobutamine @ 2 mcg/kg/min, and insulin gtt per protocol
-Last CI 2.5-> 2.23, MVO2 57.7%, u/o since OR 800 mL
-D/C a-line and swan when off dobutamine
-Will d/c obrien when off dobutamine. Monitor DEANDRE, cr 1.5, was 1.1-1.3 preop
-Will place mag oxide on hold given mg of 2.9
-Monitor hyperkalemia, 5.2
-Will transfer to [facility] phase once off dobutamine and insulin gtt
-Monitor chest tube drainage: 2med 85/130, Lpl 70/135
-Cont. current meds (ASA, Zetia, Crestor, Pulmicort, Spiriva, Lexapro, will add Plavix, Amiodarone and Lopressor are on hold while on Dobutamine gtt)
-Maintain cordis
-Maintain temporary PW (will d/c in 1-2 days)
-Wean off of O2 as tolerated
-Encourage use of IS
-OOB into chair/Ambulate
Assessment / Plan
-
Assessment:
-S/p Standard sternotomy with aortic and right atrial cannulation/ CABG x 4 (In situ PAYAN to LAD, Ao to RSVG to Diag seq to OM2/LPL, Ao to RSVG to RPDA)/Surgical aortic valve replacement [23mm biological valve], by Dr. Martínez, 12/27/23, pod#1
-Multivessel coronary disease
-Hx NSTEMI S/P PCI with multiple stents (JOHNY to D1 and OM1, 05/2010), JOHNY to RCA, 02/2009
-Recent Abnormal stress test
-Moderately-severe aortic valve stenosis
-Mild TR
-Hyperlipidemia
-Class 1 obesity (BMI 31.3)
-Prediabetes (hgb A1C 5.7)
-Hypertension
-Villareal's esophagus/GERD/Hiatal hernia
-History of CLL
-Vestibular neuritis
-Colonic Extavia
-Peptic ulcer disease
-Diverticulosis
-Thyroid nodules
-DJD/OA
-Neuropathy
-History of vertebral fracture
-Inguinal hernia
-Prostate cancer treated with chemotherapy, 2014
-Fatty liver new
-Bronchiectasis/COPD
-Acute postop blood loss/Anemia (stable without blood transfusion)
-Acute postop atelectasis
-Acute postop hypovolemia with subsequent hypervolemia
-Acute postop DEANDRE
-Acute postop hyperkalemia/magnesemia
Discussed patient care with: Cardiology, Nursing, Respiratory Therapy, Pharmacy and Care Team
Subjective
Procedure
S/p Standard sternotomy with aortic and right atrial cannulation/ CABG x 4 (In situ PAYAN to LAD, Ao to RSVG to Diag seq to OM2/LPL, Ao to RSVG to RPDA)/Surgical aortic valve replacement [23mm biological valve], by Dr. Martínez, 12/27/23
-
Date of Service: December 27, 2023
C/o incisional pain, otherwise feels well
Objective Data
-
Lab Results
12/27/23 16:27
12/27/23 12:39
PT 18.1 Sec (11.4-14.6) H 12/27/23 12:39
INR 1.52 12/27/23 12:39
APTT 33.3 Sec (23.4-35.0) 12/27/23 12:39
Vital Signs
Vital Signs
Temp Pulse Resp BP Pulse Ox
98.6 F 78 14 124/73 97
12/27/23 22:00 12/27/23 22:00 12/27/23 22:00 12/27/23 22:00 12/27/23 22:00
CT Intake/Output/Weight
12/27/23 12/27/23 12/28/23
06:59 18:59 06:59
Intake Total 909.6 / 1203.9 294.3 / 1203.9
Output Total 605 / 820 215 / 820
Balance 304.6 / 383.9 79.3 / 383.9
SaO2: 97 (2L)
Physical Exam
-
General: Awake, Oriented and AOx3
Cardiovascular: Regular rate & rhythm, No Murmurs, Rub (likely friction rub from chest tubes) and No Gallop
Respiratory: Decreased Breath Sounds (at bases, otherwise clear)
Sternum: Stable
Incision: Clean, Dry, Intact and Dressing Intact
Extremities: No Edema
Data Reviewed
-
Lab Results: Results Reviewed
Medications: Active Meds Reviewed
Chest X-Ray: Report Reviewed and Image Reviewed
ECG: Report Reviewed and Image Reviewed
[2023-12-27 22:59] LABS: Glucose - Point of Care 116 mg/dl (70-99)
[2023-12-28] VITALS (49 sets, daily range): BP systolic 73–146; BP diastolic 37–119; PULSE 2–88; O2SAT 91–98; BMI 32.0
--- NOTE | 2023-12-28 | PTCARENOTE ---
Pt assessment unchanged. BP continues to be labile, levophed gtt adjusted appropriately. on going pain management, see MAR. call escoto within reach. on going pt assessments.
[2023-12-28] MEDS: ROXICODONE 2.5 MG PO (00:41)
[2023-12-28 01:00] LABS: Glucose - Point of Care 121 mg/dl (70-99)
[2023-12-28] MEDS: DILAUDID 0.5 MG IV ×2 (01:32→15:14)
[2023-12-28 03:01] LABS: Mixed Venous O2 Saturation 57.7 %
[2023-12-28 03:09] LABS: Hemoglobin 9.7 g/dL (13.0-18.0); Mean Corp Hgb Conc. 33.4 g/dL (33.0-37.0); Mean Corpuscular Hgb 31.3 pg (27.0-31.0); Mean Corpuscular Volume 93.5 fL (80.0-94.0); Mean Platelet Volume 10.5 fL (7.4-10.4); Platelet Count 240 10^3/uL (130-400); Red Cell Dist. Width 14.2 % (11.5-14.5); White Blood Cell Count 21.6 10^3/uL (4.8-10.8)
[2023-12-28 03:16] LABS: Glucose - Point of Care 122 mg/dl (70-99)
[2023-12-28 03:26] LABS: Blood Urea Nitrogen 31 mg/dl (9-20); Calcium 9.7 mg/dl (8.4-10.2); Carbon Dioxide 22 mmol/L (22-30); Chloride 109 mmol/L (98-107); Estimated Creatinine Clearance 46 ml/min; Glucose 120 mg/dl (70-99); Magnesium 2.9 mg/dl (1.6-2.3); Potassium 5.2 mmol/L (3.5-5.1); Sodium 141 mmol/L (135-145); eGFR 47.36
[2023-12-28] MEDS: FLEXERIL 5 MG PO ×3 (03:39→20:22)
[2023-12-28] MEDS: ANCEF 5 IV ×2 (03:39→12:03)
--- NOTE | 2023-12-28 04:00 | PTCARENOTE ---
Pt assessment unchanged. NSR on monitor. VSS. BP continues to labile, see med titration. on going pain management.
[2023-12-28] MEDS: SODIUM BICARBONATE 50 MEQ IV ×2 (04:22→18:41)
[2023-12-28] MEDS: ROXICODONE 5 MG PO ×4 (04:45→18:10)
[2023-12-28 04:58] LABS: Glucose - Point of Care 115 mg/dl (70-99)
[2023-12-28] MEDS: TYLENOL 1000 MG PO ×3 (04:58→22:42)
[2023-12-28] MEDS: DILAUDID 0.25 MG IV (05:24)
--- NOTE | 2023-12-28 06:02 | W.PN.CT ---
Today's Communication / Plan
-
Plan:
-No major issues overnight. Hemodynamically and neurologically intact
-Successfully extubated on 12/27/23 @ 1730
-Labile BP postop, off and on Levophed gtt overnight. Currently off. Remains on Dobutamine @ 2 mcg/kg/min, and insulin gtt per protocol
-Last CI 2.5-> 2.23, MVO2 57.7%, u/o since OR 800 mL
-D/C a-line and swan when off dobutamine
-Will d/c obrien when off dobutamine. Monitor DEANDRE, cr 1.5, was 1.1-1.3 preop
-Will place mag oxide on hold given mg of 2.9
-Monitor hyperkalemia, 5.2
-Will transfer to [facility] phase once off dobutamine and insulin gtt
-Monitor chest tube drainage: 2med 85/130, Lpl 70/135
-Cont. current meds (ASA, Zetia, Crestor, Pulmicort, Spiriva, Lexapro, will add Plavix, Amiodarone and Lopressor are on hold while on Dobutamine gtt)
-Maintain cordis
-Maintain temporary PW (will d/c in 1-2 days)
-Wean off of O2 as tolerated
-Encourage use of IS
-OOB into chair/Ambulate
Assessment / Plan
-
Assessment:
-S/p Standard sternotomy with aortic and right atrial cannulation/ CABG x 4 (In situ PAYAN to LAD, Ao to RSVG to Diag seq to OM2/LPL, Ao to RSVG to RPDA)/Surgical aortic valve replacement [23mm biological valve], by Dr. Martínez, 12/27/23, pod#1
-Multivessel coronary disease
-Hx NSTEMI S/P PCI with multiple stents (JOHNY to D1 and OM1, 05/2010), JOHNY to RCA, 02/2009
-Recent Abnormal stress test
-Moderately-severe aortic valve stenosis
-Mild TR
-Hyperlipidemia
-Class 1 obesity (BMI 31.3)
-Prediabetes (hgb A1C 5.7)
-Hypertension
-Villareal's esophagus/GERD/Hiatal hernia
-History of CLL
-Vestibular neuritis
-Colonic Extavia
-Peptic ulcer disease
-Diverticulosis
-Thyroid nodules
-DJD/OA
-Neuropathy
-History of vertebral fracture
-Inguinal hernia
-Prostate cancer treated with chemotherapy, 2015
-Fatty liver new
-Bronchiectasis/COPD
-Acute postop blood loss/Anemia (stable without blood transfusion)
-Acute postop atelectasis
-Acute postop hypovolemia with subsequent hypervolemia
-Acute postop DEANDRE
-Acute postop hyperkalemia/magnesemia
Discussed patient care with: Cardiology, Nursing, Respiratory Therapy, Pharmacy and Care Team
Subjective
-
Date of Service: December 28, 2023
Objective Data
-
Lab Results
12/28/23 02:41
PT 15.0 Sec (11.4-14.6) H 12/28/23 02:41
INR 1.20 12/28/23 02:41
APTT 33.3 Sec (23.4-35.0) 12/27/23 12:39
Vital Signs
Vital Signs
Temp Pulse Resp BP Pulse Ox
99.0 F 91 17 111/57 93
12/28/23 05:00 12/28/23 05:00 12/28/23 05:00 12/28/23 04:00 12/28/23 05:00
CT Intake/Output/Weight
12/27/23 12/27/23 12/28/23
06:59 18:59 06:59
Intake Total 63.6 / 63.6 909.6 / 1473.8 564.2 / 1473.8
Output Total 50 / 50 605 / 1058 453 / 1058
Balance 13.6 / 13.6 304.6 / 415.8 111.2 / 415.8
SaO2: 93 (8L midflow 02)
Physical Exam
-
General: Awake, Oriented and AOx3
Cardiovascular: No Murmurs and Rub (likely friction rub from chest tubes)
Respiratory: Decreased Breath Sounds
Sternum: Stable
Incision: Clean, Dry, Intact and Dressing Intact
Extremities: No Edema
Data Reviewed
-
Lab Results: Results Reviewed
Medications: Active Meds Reviewed
Chest X-Ray: Report Reviewed and Image Reviewed
ECG: Report Reviewed and Image Reviewed
[2023-12-28 07:12] LABS: Glucose - Point of Care 106 mg/dl (70-99)
[2023-12-28] MEDS: SPIRIVA RESPIMAT 2.5 MCG 2 PUFF INH (07:36)
[2023-12-28] MEDS: PULMICORT 0.5 MG INH (07:36)
[2023-12-28] MEDS: VENTOLIN NEBULES 2.5 MG INH ×3 (07:36→15:22)
--- NOTE | 2023-12-28 07:59 | W.PN.ANS.POP ---
Anesthesia Post Operative
- Anesthesia Post Op Note
Vital Signs Stable-See Nursing Note: Yes (pt remains on cardene gtt and dobutamine gtt)
Airway Patent: Yes
Adequate Pain Control: Yes
Change in Mental Status: No
Current Postoperative Nausea & Vomiting: No
Anesthesia Complications: No
General Anesthetic Recall: No
Unplanned Admission: No
Post Op Hydration Adequate: Yes
--- NOTE | 2023-12-28 08:00 | PTCARENOTE ---
Assumed care of patient. Walking rounds completed with previous RN. Pt assessed while he was lying in bed. Pt alert and oriented x4. Rates sternal/back pain /10-see MAR. SCOTT with equal strength in all extremities. SR-ST on tlee with rates 80s-100s.
BP labile. CI 2.57, PA pressures mid30s/high 10s. CVP flat 8. SVR 29, CT RECONCILIATION ANALYST aware. Dobutamine infusing at 2mcg/kg/min. Bilateral radial and DP pulses palpable. Epicardial v-wire to back up, no pacing noted. POX 92% on 7L midflow. Lungs diminished in
the bases. Shallow breathing. IS encouraged-1250mL achieved. Mediastinal chest tubes x2 y-sited to 1 [facility] to -20cm suction draining serosanguineous fluid. Left pleural chest tube to -20cm suction draining serosanguineous fluid. No air leaks,
tidaling, crepitus noted. Occasional moist nonproductive cough noted. Abdomen soft, round, nontender. Hypoactive BS. pt denies gas, +belching. Orozco catheter intact draining clear yellow urine. Sternal incision approximated with skin glue, STATION BAGGAGE AGENT.
Chest tube dressing changed, and cleansed with CHG. Right groin puncture site with 1s2-ZMP. Left groin puncture site approximated with skin glue, ecchymotic. Right medial knee incision approximated with skin glue, EUGENIO intact. Left medial knee
incision approximated with skin glue, EUGENIO intact. Right IJ cordis intact with swan floated to 42cm. Left radial kelsey intact. All lines flushed, leveled, and zeroed. Right AC PIV intact infusing insulin gtt per Critical Care Glycemic Protocol. See
MAR for medication administration. See worklist for complete nursing assessment. Plan of care reviewed and pt in agreement.
[2023-12-28] MEDS: BACTROBAN 2% OINTMENT 1 APPLIC NASAL ×2 (08:15→20:21)
[2023-12-28] MEDS: FLUSH (NSS) 1 FLUSH IV (08:16)
[2023-12-28] MEDS: OSCAL CAL 500 500 MG PO (08:16)
[2023-12-28] MEDS: VITAMIN C 500 MG PO (08:16)
[2023-12-28] MEDS: SENOKOT-S 1 TABLET PO ×2 (08:16→20:22)
[2023-12-28] MEDS: PROTONIX 40 MG PO (08:16)
[2023-12-28] MEDS: FLOMAX 0.4 MG PO (08:16)
[2023-12-28] MEDS: THERAGRAN 1 TABLET PO (08:16)
[2023-12-28] MEDS: NEURONTIN 100 MG PO ×3 (08:16→22:41)
[2023-12-28] MEDS: CLARITIN 10 MG PO (08:16)
[2023-12-28] MEDS: LOW STRENGTH ASPIRIN 81 MG PO (08:20)
[2023-12-28] MEDS: PLAVIX 75 MG PO (08:20)
[2023-12-28 08:46] LABS: Glucose - Point of Care 102 mg/dl (70-99)
[2023-12-28] MEDS: NOVOLOG FLEXPEN 4 UNITS SC (08:46)
[2023-12-28] MEDS: LR 500 IV (09:00)
[2023-12-28] MEDS: NSS IV (09:49)
--- NOTE | 2023-12-28 10:30 | PTCARENOTE ---
Pt assisted OOB to chair with 2 assist. Pt felt dizzy when standing. BP recovered quickly without intervention. Pt tolerated.
[2023-12-28 11:12] LABS: Glucose - Point of Care 103 mg/dl (70-99)
--- NOTE | 2023-12-28 11:27 | W.PN.CARDCBS ---
Addendum entered and electronically signed by Peyman Spear MD 12/28/23 14:36:
Patient seen and examined
Agree with PURIFICATION OPERATOR HELPER note and assessment
Agree with PURIFICATION OPERATOR HELPER plan
Exam:
Cordis in the right neck
Sternum clean dry intact
Alert O0 x 3
Cor regular no murmur
Mediastinal tube noted
JVP 6
Pressors as noted
Abdomen soft nontender positive bowel sounds
Impression:
CAD
s/p JOHNY to RCA 02/2009
NSTEMI and JOHNY to Diag-1 and OM-1 05/2010
POD #1 s/p CABG with PAYAN to LAD, SVG sequential to Diab and OM-2/LPL, SVG to RPDA 12/27/23s/p tissue AVR for moderate to severe , POD #1
Mod MR by echo 11/04/23
CLL
Prostate cancer
h/o sinus bradycardia and 6 second pause leading to syncope 2016
h/o GERD and Villareal's
Echo 11/04/2023: EF 60 to 65%, moderate MR, moderate AAS mean gradient 29 mmHg, LIZA 0.8 cm sq, mild aortic insufficiency
Plan:
-Patient was seen in ER on 11/04/2023 for chest pain. He then had an abnormal stress test with evidence of small mild inferoapical scar and mild mid anterior, anterolateral ischemia. The patient was then referred for cardiac catheterization on
11/11/2023 he was found to have multivessel CAD including significant stenosis in the mid LAD spanning the origin of a previously placed stent in the diagonal branch. There is also a 65 to 70% stenosis in the proximal RCA within the previously
stented segment. Additionally echo from 11/04/2023 showed moderate with mean gradient 29 mmHg and LIZA 0.8 cm sq. Patient was seen in consultation by CT surgeon and was recommended CABG and tissue AVR which was performed on 12/27/2023.
-extubated overnight, currently on 9L NC
-gtts:
-Dobutamine weaned down to 1 mcg/kg/min
-off Levo and Cardene
-insulin
-on ASA/Plavix
-ECG 12/28/23 reviewed by me: NSR, no ischemic changes, QTc 487msec. Repeat EKG 12/29/23. Tele reviewed by me is SR with HRs 70s-80s. No afib noted.
-Patient was taking Lasix 20 mg PO daily prior to admission. BPs were labile post op and he is receiving IV fluids. Has LE edema, lungs CTA. CXR 12/28/23 without congestion. Follow volume status post-op.
-LDL 72 on 09/21/23. Patient was taking pravastatin 80 mg daily and Zetia 10 mg prior to admission. Started on Crestor 40 mg and Zetia 10 mg 12/28/23.
-Metoprolol and prophylactic Amio on hold while on Dobutamine.
Original Note:
Today's Communication / Plan
-
-remains in NSR
-wean Dobutamine as tolerated
-postop CT care
Impression / Plan
-
PCP:
Primary Bulk Sealer Operator: Dr. Parker
Impression:
CAD
s/p JOHNY to RCA 02/2009
NSTEMI and JOHNY to Diag-1 and OM-1 05/2010
POD #1 s/p CABG with PAYAN to LAD, SVG sequential to Diab and OM-2/LPL, SVG to RPDA 12/27/23
s/p tissue AVR for moderate to severe , POD #1
Mod MR by echo 11/04/23
CLL
Prostate cancer
h/o sinus bradycardia and 6 second pause leading to syncope 2016
h/o GERD and Villareal's
Echo 11/04/2023: EF 60 to 65%, moderate MR, moderate AAS mean gradient 29 mmHg, LIZA 0.8 cm sq, mild aortic insufficiency
Plan:
-Patient was seen in ER on 11/04/2023 for chest pain. He then had an abnormal stress test with evidence of small mild inferoapical scar and mild mid anterior, anterolateral ischemia. The patient was then referred for cardiac catheterization on
11/11/2023 he was found to have multivessel CAD including significant stenosis in the mid LAD spanning the origin of a previously placed stent in the diagonal branch. There is also a 65 to 70% stenosis in the proximal RCA within the previously
stented segment. Additionally echo from 11/04/2023 showed moderate with mean gradient 29 mmHg and LIZA 0.8 cm sq. Patient was seen in consultation by CT surgeon and was recommended CABG and tissue AVR which was performed on 12/27/2023.
-extubated overnight, currently on 9L NC
-gtts:
-Dobutamine weaned down to 1 mcg/kg/min
-off Levo and Cardene
-insulin
-on ASA/Plavix
-ECG 12/28/23 reviewed by me: NSR, no ischemic changes, QTc 487msec. Repeat EKG 12/29/23. Tele reviewed by me is SR with HRs 70s-80s. No afib noted.
-Patient was taking Lasix 20 mg PO daily prior to admission. BPs were labile post op and he is receiving IV fluids. Has LE edema, lungs CTA. CXR 12/28/23 without congestion. Follow volume status post-op.
-LDL 72 on 09/21/23. Patient was taking pravastatin 80 mg daily and Zetia 10 mg prior to admission. Started on Crestor 40 mg and Zetia 10 mg 12/28/23.
-Metoprolol and prophylactic Amio on hold while on Dobutamine.
Progress Note - Bulk Sealer Operator
Subjective
Date of Service: December 28, 2023
POD #1 s/p CABG x 4 and bioprosthetic AVR
OOB in chair
weaning off Dobutamine
on O2 9L
NSR on telemetry and EKG
Objective
Labs:
12/28/23 02:41
Labs
Hgb 9.7 g/dL (13.0-18.0) L 12/28/23 02:41
Hct 29.0 % (39.0-52.0) L 12/28/23 02:41
Plt Count 240 10^3/uL (130-400) 12/28/23 02:41
PT 15.0 Sec (11.4-14.6) H 12/28/23 02:41
INR 1.20 12/28/23 02:41
APTT 33.3 Sec (23.4-35.0) 12/27/23 12:39
Sodium 141 mmol/L (135-145) 12/28/23 02:41
Potassium 5.2 mmol/L (3.5-5.1) H 12/28/23 02:41
BUN 31 mg/dl (9-20) H 12/28/23 02:41
Creatinine 1.5 mg/dL (0.7-1.3) H 12/28/23 02:41
Glucose 120 mg/dl (70-99) H 12/28/23 02:41
Vital Signs and I&O:
Vital Signs
Temp Pulse Resp BP Pulse Ox
99.1 F 79 16 105/55 95
12/28/23 10:00 12/28/23 11:11 12/28/23 11:11 12/28/23 11:03 12/28/23 11:11
Vital Signs
Temp Pulse Resp BP Pulse Ox
99.1 F 79 16 105/55 95
12/28/23 10:00 12/28/23 11:11 12/28/23 11:11 12/28/23 11:03 12/28/23 11:11
Intake & Output
12/26/23 12/27/23 12/28/23 12/29/23
06:59 06:59 06:59 06:59
Intake Total 1563.5 / 1589.3 938.7 / 938.7
Output Total 1143 / 1188 218 / 218
Balance 420.5 / 401.3 720.7 / 720.7
Physical Exam
Physical Exam
GEN: No distress, awake, Ox3, sitting in chair
HEENT: supple, anicteric, mmm
LUNGS: CTA, no wheezes/rales
CV: Reg, S1/S2, + rub
ABD: soft, BS+, NT/ND
EXT: trace B/L LE edema and UE edema. LEs wrapped with EUGENIO
NEURO: Gross non-focal
SKIN: No rash
--- NOTE | 2023-12-28 11:30 | PTCARENOTE ---
Pt reassessed. Sitting up in the chair talking with . Remains A&Ox4. NSR on tele with rates in the 80s. BP labile, but recovers quickly, BP 102/40. CI 2.28. Dobutamine at 1mcg/kg/min. 8L midflow NC. IS encouraged and needs frequent reminders.
Orozco draining clear yellow urine. CT CLIENT RELATIONS ASSOCIATE notified of low UO. Surgical sites stable. CT output WNL. Lines remain intact.
[2023-12-28 11:36] LABS: B.E. -3.2 mmol/L; HCO3 21.1 mmol/L (21-28); Ionized Calcium 1.24 mMOL/L (1.15-1.33); O2 Saturation % 97.7 % (94-98); PCO2 34 mmHg (35-48); PO2 88 mmHg (83-108); Potassium 4.9 mMOL/L (3.5-5.1); Sodium 136 mMOL/L (136-145)
[2023-12-28 11:39] LABS: Mixed Venous O2 Saturation 46.4 %
[2023-12-28 11:54] LABS: Blood Urea Nitrogen 37 mg/dl (9-20); Carbon Dioxide 23 mmol/L (22-30); Chloride 108 mmol/L (98-107); Estimated Creatinine Clearance 44 ml/min; Glucose 114 mg/dl (70-99); Magnesium 2.7 mg/dl (1.6-2.3); Potassium 4.9 mmol/L (3.5-5.1); Sodium 140 mmol/L (135-145); eGFR 43.83
[2023-12-28] MEDS: ALBUMIN 5% 250 IV (12:02)
[2023-12-28 13:07] LABS: Glucose - Point of Care 115 mg/dl (70-99)
--- NOTE | 2023-12-28 13:15 | PTCARENOTE ---
Insulin gtt d/c per verbal order from CT SORTING MACHINE OPERATOR.
[2023-12-28] MEDS: NOVOLOG FLEXPEN SC ×2 (13:22→16:18)
[2023-12-28 13:28] LABS: Mixed Venous O2 Saturation 51.9 %
--- NOTE | 2023-12-28 13:34 | W.PN.INTV ---
Today's Communication / Plan
Recommendations
Continue postoperative care
Wean off dobutamine
Follow chest tube output
Follow hemoglobin
Increase activity as tolerated
Incentive spirometry encouraged
Sign off
Assessment
-
Status post AVR/CABG-12/27/2023
Postoperative mechanical ventilation
Postoperative anemia
Conditions present prior admission:
Coronary artery disease with prior stents
History of sinusitis
Hiatal hernia
History of peptic ulcer disease
Thyroid nodules
History of prostate cancer in 2014 status postchemotherapy
Fatty liver
CLL
Obesity
COPD-not followed locally-on Brovana/Yupelri/budesonide
Spirometry 12/22/2023: FEV1/FVC 61%, FEV1 2.34 L - 85%, FVC 3.31 L - 90% mild airflow obstruction
Assessment and plan:
Postoperative day 1
No major issues overnight
Neurologically intact
Extubated on low rate supplemental oxygen
Encourage incentive spirometry
Increase activity as able
Analgesia
-
Anemia noted-no evidence of acute bleeding leukocytosis noted. Afebrile.
Continue to follow with daily CBC
Hemodynamics -acceptable on low-dose dobutamine.
Blood pressure remains liable
Arterial line has been discontinued
Chest tube with no excessive drainage-no air leak.
Chest x-ray 4reviewed: With no pneumothorax or fluid collections.
Advance diet as tolerated
Head of the bed elevation
History of COPD: Not bronchospastic. Continue nebulizers. Does not follow-up locally.
Glycemic control per protocol
DVT prophylaxis when safe from the surgical perspective.
Patient has been transferred to telemetry phase
Critical care team will sign
Subjective Dataa
Subjective Data
Date of Service:
Date of Service: December 28, 2023
Chief Complaint: Chair Lift Operator Follow Up (Status post coronary artery bypass/AVR)
Subjective:
Overnight no major issues
Patient denies any significant pain
Denies shortness of breath at rest
No significant cough
Review of Systems
Cardiopulmonary: Dyspnea (None at rest) and Chest Pain (Controlled)
GI: Abdominal Pain (n), Nausea (n) and Vomiting (n)
Objective Data
Data Reviewed
Vital Signs / I&O / Oxygen:
Vital Signs
Temp Pulse Resp BP Pulse Ox
99.6 F 89 24 104/53 97
12/28/23 13:00 12/28/23 13:00 12/28/23 13:00 12/28/23 13:00 12/28/23 13:00
Intake and Output
12/27/23 12/28/23 12/29/23
06:59 06:59 06:59
Intake Total 1563.5 / 1589.3 1268.1 / 1268.1
Output Total 1143 / 1188 289 / 289
Balance 420.5 / 401.3 979.1 / 979.1
SaO2 [CPAP] 93
SaO2 [SIMV] 97
SaO2 97
Nasal Cannula flow liters per 10
minute
Physical Exam
General: Comfortable
HEENT: Normocephalic
Cardiovascular: S1-S2
Respiratory: Clear, Non-Labored Respirations and Chest Tube (No air leak. No excessive drainage.)
GI: Soft and Non Distended
Neurology: Awake and Alert
Skin: Warm
Labs/Micro/Reports
Lab Data
12/28/23 02:41
12/28/23 10:06
Laboratory Results
12/27/23 12/27/23 12/28/23
16:50 18:10 02:41
PT 15.0 H
INR 1.20
pH 7.36 7.35
pCO2 38 39
pO2 72 L 153 H
HCO3 21.5 21.5
O2 Delivery Level
12/28/23
11:26
PT
INR
pH 7.40
pCO2 34 L
pO2 88
HCO3 21.1
O2 Delivery Level
--- NOTE | 2023-12-28 14:00 | PTCARENOTE ---
Pt assisted back to bed with [address] d/c per orders. Pt tolerated. Vaseline gauze and gauze dressing applied.
[2023-12-28] MEDS: FERRLECIT 110 MG IV (14:06)
[2023-12-28 15:17] LABS: B.E. -4.6 mmol/L; HCO3 20.2 mmol/L (21-28); Ionized Calcium 1.25 mMOL/L (1.15-1.33); PCO2 35 mmHg (35-48); PO2 64 mmHg (83-108); Potassium 4.8 mMOL/L (3.5-5.1); Sodium 136 mMOL/L (136-145); pH 7.37 (7.35-7.45)
[2023-12-28 15:21] LABS: Mixed Venous O2 Saturation 44.7 %
[2023-12-28 15:29] LABS: Hematocrit 23.2 % (39.0-52.0); Hemoglobin 7.6 g/dL (13.0-18.0)
--- NOTE | 2023-12-28 15:29 | CM ---
CM following for DC planning needs.
Attempted to meet w/ patient at bedside but patient was sleeping soundly.
Reviewed DC plan. Plan is for home w/ CT Transitional Care RN.
CM will cont. to follow for DC planning needs.
[2023-12-28] MEDS: FLEXBUMIN 100 IV ×2 (15:47→22:42)
--- NOTE | 2023-12-28 16:30 | PTCARENOTE ---
Pt reassessed. Pt resting in bed, intermittently sleeping. NSR with rates in the 70s-80s. BP 122/43. Dobutamine infusing at 1mcg/kg/min. POX 90% on 9L midflow. Surgical sites stable. EUGENIO wraps removed from b/l legs at 1230, incisions approximated,
slightly ecchymotic. Mediastinal CTs output WNL. Orozco continues to drain inadequate yellow urine, CT PA aware. CI 2.96, MVO2 44.7, CT PA aware. 1unit PRBC infusing. All lines remain intact.
[2023-12-28] MEDS: CARDENE 200 IV (17:36)
[2023-12-28] MEDS: LASIX 40 MG IV (18:05)
[2023-12-28] MEDS: LEXAPRO 5 MG PO (18:05)
[2023-12-28] MEDS: CRESTOR 40 MG PO (18:05)
[2023-12-28] MEDS: DOBUTREX 500 MG 250 IV (18:06)
[2023-12-28] MEDS: NITROGLYCERIN PREMIX 250 IV (18:11)
[2023-12-28 18:17] LABS: Mixed Venous O2 Saturation 51.4 %
[2023-12-28] MEDS: MUCINEX 1200 MG PO (18:32)
--- NOTE | 2023-12-28 18:55 | PTCARENOTE ---
VO from CT PULLER MACHINE for new SBP goal 90-140 and to stop Cardene and Nitro. Drips turned off per orders.
[2023-12-28] MEDS: ProAIR HFA INHALER 2 PUFF INH (19:29)
--- NOTE | 2023-12-28 20:00 | PTCARENOTE ---
Received pt from [facility] pt resting comfortably in bed, with at bedside. pt AAOx4, states pain is 4/10, see MAR. NSR on monitor. VSS. heart sounds audible, radial and DP pulses palpable, trace VANNA, +1 UEE, temp epicardial pacing set to VVI
rate of 40 MA of 20 MV of 2. lungs diminished at b/l bases, pt on bipap set to 10/5 at 15L, spo2 94%. hypoactive BS x4 quadrants, abdomen soft non tender. pt voiding clear yellow urine via obrien catheter. surgical sites maintained. right IJ cordis,
swan @ 42, left radial A-line, and PIV all maintained, leveled, and zeroed. dobutamine gtt infusing. call escoto within reach. will continue to monitor.
[2023-12-28 20:56] LABS: B.E. -0.9 mmol/L; HCO3 23.4 mmol/L (21-28); Ionized Calcium 1.17 mMOL/L (1.15-1.33); O2 Saturation % 97.1 % (94-98); PCO2 36 mmHg (35-48); PO2 72 mmHg (83-108); Potassium 4.5 mMOL/L (3.5-5.1); Sodium 136 mMOL/L (136-145); pH 7.42 (7.35-7.45)
[2023-12-28 20:59] LABS: Mixed Venous O2 Saturation 59.8 %
[2023-12-28] MEDS: ZETIA 10 MG PO (22:42)
[2023-12-28 23:10] LABS: HCO3 23.5 mmol/L (21-28); O2 Saturation % 98.1 % (94-98); PCO2 37 mmHg (35-48); PO2 85 mmHg (83-108); pH 7.41 (7.35-7.45)
[2023-12-29] VITALS (28 sets, daily range): BP systolic 103–172; BP diastolic 45–85; PULSE 2–87; O2SAT 94–96; BMI 33.1
--- NOTE | 2023-12-29 | PTCARENOTE ---
Pt assessment unchanged. NSR on monitor. VSS. on going pain management, see MAR. q4 hr MVo2 labs being taken. call escoto within reach. will continue to monitor.
[2023-12-29] MEDS: ProAIR HFA INHALER 2 PUFF INH (01:07)
--- NOTE | 2023-12-29 02:49 | W.PN.CT ---
Addendum entered and electronically signed by Lorie Moon PA-C 12/29/23 10:26:
additional diagnosis
acute pulmonary insufficiency following surgery
Original Note:
Today's Communication / Plan
-
Trending ABG and mixed venous q4; improving with bipap and albuterol�
Bipap removed at 0355 for coughing spell (placed on midflow); acapella order�
Dobutamine @ 1 mcg/kg/min�
Maintain a-line and swan till off dobutamine�
Maintain obrien until off dobutamine. Monitor DEANDRE, cr 1.5, 1.6�
Transfer to [facility] phase once off dobutamine�
Monitor chest tube drainage: 2med = 40/30 =70 , L PL =�80/65=902
UOP =700
Midodrine and Lopressor are on hold while on Dobutamine gtt)�
Maintain cordis and temporary PW �
Wean off of O2 as tolerated�
Encourage use of IS�
OOB into chair/Ambulate�
Held cardene and Nitro for concern of shunting�
Cont. current meds (ASA, Zetia, Crestor, Pulmicort, Spiriva, Lexapro, Plavix,�
Amiodarone and Lopressor are on hold while on Dobutamine gtt)�
Assessment / Plan
-
Assessment:
-S/p Standard sternotomy with aortic and right atrial cannulation/ CABG x 4 (In situ PAYAN to LAD, Ao to RSVG to Diag seq to OM2/LPL, Ao to RSVG to RPDA)/Surgical aortic valve replacement [23mm biological valve], by Dr. Martínez, 12/27/23, pod#2
-Multivessel coronary disease
-Hx NSTEMI S/P PCI with multiple stents (JOHNY to D1 and OM1, 05/2010), JOHNY to RCA, 02/2009
-Recent Abnormal stress test
-Moderately-severe aortic valve stenosis
-Mild TR
-Hyperlipidemia
-Class 1 obesity (BMI 31.3)
-Prediabetes (hgb A1C 5.7)
-Hypertension
-Villareal's esophagus/GERD/Hiatal hernia
-History of CLL
-Vestibular neuritis
-Colonic Extavia
-Peptic ulcer disease
-Diverticulosis
-Thyroid nodules
-DJD/OA
-Neuropathy
-History of vertebral fracture
-Inguinal hernia
-Prostate cancer treated with chemotherapy, 2015
-Fatty liver new
-Bronchiectasis/COPD
-Acute postop blood loss/Anemia (stable without blood transfusion)
-Acute postop atelectasis
-Acute postop hypovolemia with subsequent hypervolemia
-Acute postop DEANDRE
-Acute postop hyperkalemia/magnesemia
Subjective
Procedure
-S/p Standard sternotomy with aortic and right atrial cannulation/ CABG x 4 (In situ PAYAN to LAD, Ao to RSVG to Diag seq to OM2/LPL, Ao to RSVG to RPDA)/Surgical aortic valve replacement [23mm biological valve], by Dr. Martínez, 12/27/23,
-
Date of Service: December 29, 2023
Objective Data
-
PT 15.0 Sec (11.4-14.6) H 12/28/23 02:41
INR 1.20 12/28/23 02:41
APTT 33.3 Sec (23.4-35.0) 12/27/23 12:39
Vital Signs
Vital Signs
Temp Pulse Resp BP Pulse Ox
99.1 F 83 16 127/53 96
12/29/23 02:00 12/29/23 02:15 12/29/23 02:15 12/29/23 02:00 12/29/23 02:15
CT Intake/Output/Weight
12/28/23 12/28/23 12/29/23
06:59 18:59 06:59
Intake Total 653.9 / 1589.3 1897.6 / 2240.8 343.2 / 2240.8
Output Total 538 / 1188 474 / 959 485 / 959
Balance 115.9 / 401.3 1423.6 / 1281.8 -141.8 / 1281.8
SaO2: 96
Physical Exam
-
General: Awake
Cardiovascular: Regular rate & rhythm
Respiratory: Clear and Equal
Sternum: Stable
Incision: Clean, Dry and Intact
Extremities: Edema +1
[2023-12-29 03:54] LABS: Mixed Venous O2 Saturation 63.3 %
[2023-12-29 04:00] LABS: HCO3 22.1 mmol/L (21-28); O2 Saturation % 99.1 % (94-98); PCO2 34 mmHg (35-48); PO2 117 mmHg (83-108); pH 7.42 (7.35-7.45)
--- NOTE | 2023-12-29 04:00 | PTCARENOTE ---
Pt had coughing episode starting around 0330. Bipap was removed, midflow NC 15L was placed on pt. RT and CVNP was notified. acapella was given to pt and use reviewed by RT. labs were drawn and sent.
[2023-12-29 04:03] LABS: O2 Therapy 40%
[2023-12-29 04:07] LABS: Hematocrit 24.3 % (39.0-52.0); Hemoglobin 8.1 g/dL (13.0-18.0); Mean Corp Hgb Conc. 33.3 g/dL (33.0-37.0); Mean Corpuscular Hgb 30.2 pg (27.0-31.0); Mean Corpuscular Volume 90.7 fL (80.0-94.0); Mean Platelet Volume 10.4 fL (7.4-10.4); Platelet Count 144 10^3/uL (130-400); Red Blood Cell Count 2.68 10^6/uL (4.70-6.10); Red Cell Dist. Width 16.2 % (11.5-14.5); White Blood Cell Count 14.2 10^3/uL (4.8-10.8)
[2023-12-29 04:25] LABS: Blood Urea Nitrogen 45 mg/dl (9-20); Calcium 9.2 mg/dl (8.4-10.2); Carbon Dioxide 23 mmol/L (22-30); Chloride 105 mmol/L (98-107); Estimated Creatinine Clearance 37 ml/min; Glucose 119 mg/dl (70-99); Magnesium 2.7 mg/dl (1.6-2.3); Potassium 4.8 mmol/L (3.5-5.1); Sodium 141 mmol/L (135-145); eGFR 35.66
[2023-12-29] MEDS: ROXICODONE 5 MG PO (04:25)
[2023-12-29] MEDS: TYLENOL 1000 MG PO ×3 (06:34→20:52)
[2023-12-29] MEDS: VENTOLIN NEBULES 2.5 MG INH ×3 (07:44→19:45)
[2023-12-29] MEDS: PULMICORT 0.5 MG INH (07:44)
[2023-12-29] MEDS: SPIRIVA RESPIMAT 2.5 MCG 2 PUFF INH (07:44)
[2023-12-29] MEDS: ProAIR HFA INHALER INH (07:45)
--- NOTE | 2023-12-29 08:00 | PTCARENOTE ---
Received pt from [facility]. Walking rounds completed. Nursing assessment completed in bed. Pt is AAOx4, no neuro deficits noted. NSR on monitor with no pacer spike noted. V-wire connected 40-20-2. B/P: 108/84, HR: 98. Mize@ 42. L radial A-lines
zeroed and calibrated. CI/CO obtained. Pulses palpable. Bilateral UE +2 edema, Bilateral LE +1 edema. Sternal incision approx. with sternal glue noted, no redness or edema noted. Rhonchi auscultated in Bilateral upper lungs. Lungs diminished in
bases. POX 95% on 15L midflow. Pt coughing harshly and frequently expelling muniz, thick, sputum. I/S encouraged. MedsX2 draining serosanguineous fluid WNL. BS auscultated, abdomen round, soft, nontender to touch. Orozco intact, draining clear,
yellow fluid WNL. R femoral dressing C/D/I. L femoral punctures with ecchymosis noted. Bilateral saphenous incisions approx, with surgical glue noted. IJ cordis intact. 20g R forearm, no redness or edema noted. Plan of care discussed with pt. Pt
resting in chair.
[2023-12-29] MEDS: FLEXBUMIN 100 IV (08:21)
[2023-12-29] MEDS: BACTROBAN 2% OINTMENT 1 APPLIC NASAL ×2 (08:25→20:52)
[2023-12-29] MEDS: FLOMAX 0.4 MG PO (08:25)
[2023-12-29] MEDS: PLAVIX 75 MG PO (08:28)
[2023-12-29] MEDS: LOW STRENGTH ASPIRIN 81 MG PO (08:28)
[2023-12-29] MEDS: PROTONIX 40 MG PO (08:28)
[2023-12-29] MEDS: MUCINEX 1200 MG PO ×2 (08:29→20:52)
[2023-12-29] MEDS: CLARITIN 10 MG PO (08:29)
[2023-12-29] MEDS: OSCAL CAL 500 500 MG PO (08:30)
[2023-12-29] MEDS: THERAGRAN 1 TABLET PO (08:30)
[2023-12-29] MEDS: NEURONTIN 100 MG PO ×3 (08:31→20:52)
[2023-12-29] MEDS: SENOKOT-S 1 TABLET PO ×2 (08:31→20:52)
[2023-12-29] MEDS: VITAMIN C 500 MG PO (08:31)
[2023-12-29 08:55] LABS: B.E. -0.4 mmol/L; O2 Saturation % 97.7 % (94-98); PCO2 37 mmHg (35-48); PO2 87 mmHg (83-108); pH 7.42 (7.35-7.45)
[2023-12-29 09:00] LABS: Mixed Venous O2 Saturation 61.2 %
[2023-12-29 09:09] LABS: Blood Urea Nitrogen 46 mg/dl (9-20); Calcium 8.9 mg/dl (8.4-10.2); Carbon Dioxide 25 mmol/L (22-30); Chloride 104 mmol/L (98-107); Estimated Creatinine Clearance 40 ml/min; Glucose 123 mg/dl (70-99); Potassium 4.3 mmol/L (3.5-5.1); Sodium 139 mmol/L (135-145); eGFR 38.05
--- NOTE | 2023-12-29 09:15 | PN.CDI ---
CDI
- -
CDI:
Physician Documentation Request
Admit Date: 12/27/23 05:[address] Surgery,
Please review the following and provide your response in the progress notes.
Clinical Indicators:
- 12/26 extubated and started on 10L O2 midflow NC
- / O2 weaned to 7-8L O2, pulse ox low 90s
- 10/ pulse ox 86-89%, O2 increased to 9L midflow, placed on bipap at 15L O2
- 10/10 O2 at 15L midflow NC, pulse ox >93%
Please clarify which of the following accurately represents the patient's respiratory status following surgery:
Acute hypoxic respiratory failure
Acute pulmonary insufficiency (following surgery)
Other
Additional information for Pulmonary Insufficiency:
Consider when patients require terminal operations supervisor oxygen therapy postoperatively
Weaned off oxygen initially then requiring supplemental oxygen
No other definitive diagnosis to support the need for oxygen (COPD exac, CHF etc.)
Unable to wean from vent
When criteria for respiratory failure not present
May extend stay or require additional resources; may need home O2
Additional information for Respiratory Failure:
Recognized criteria for Respiratory Failure (Source: [facility] Hospitalist Jan 2013)
ABGs: (1 or more) Symptoms Indicate:
1. p)2 <60 or RA SPO2 <91% on RA 1. Tachypnea, SOB, dyspnea 1. Type as:
2. pCO2 50 and pH <7.35 2. Use of accessory muscles a. Hypoxic
3. pO2 decrease of pCO2 increase by 3. Pallor or cyanosis b. Hypercapnic
10 mmHg from baseline if known 4. Anxiety or restlessness 2. If due to procedure or due to another cause
5. Unable to speak in full sentences
Supplemental O2 of > 40% Intubation is not required
Use of terms such as suspected, likely, concern for, or probable (associated with a specific diagnosis that is being evaluated, monitored, or treated as if it exists) are acceptable and can be coded in the inpatient setting, when documented at the
time of discharge.
Thank you,
Kunal Cox RN
CDI Specialist
Please use your independent medical judgment in providing your response.
--- NOTE | 2023-12-29 09:38 | PTCARENOTE ---
Pt placed on High flow NC. 50L, 60%, POX95%, pt tolerating.
[2023-12-29 10:16] LABS: Urine Sodium 16 mmol/L (30-90)
[2023-12-29 10:48] LABS: Mixed Venous O2 Saturation 66.2 %
--- NOTE | 2023-12-29 11:34 | W.PN.CARDCBS ---
Today's Communication / Plan
-
Diuresis
Supportive postop care
Impression / Plan
-
PCP:
Primary Stunt Man: Dr. Parker
Impression:
CAD
s/p JOHNY to RCA 02/2009
NSTEMI and JOHNY to Diag-1 and OM-1 05/2010
POD #1 s/p CABG with PAYAN to LAD, SVG sequential to Diab and OM-2/LPL, SVG to RPDA 12/27/23
s/p tissue AVR for moderate to severe , POD #1
Mod MR by echo 11/04/23
CLL
Prostate cancer
h/o sinus bradycardia and 6 second pause leading to syncope 2016
h/o GERD and Villareal's
Echo 11/04/2023: EF 60 to 65%, moderate MR, moderate AAS mean gradient 29 mmHg, LIZA 0.8 cm sq, mild aortic insufficiency
Plan:
-S/p Standard sternotomy with aortic and right atrial cannulation/ CABG x 4 (In situ PAYAN to LAD, Ao to RSVG to Diag seq to OM2/LPL, Ao to RSVG to RPDA)/Surgical aortic valve replacement [23mm biological valve], by Dr. Martínez, 12/27/23, pod#2
-Overnight required BiPAP now on mid flow O2
-Continue IV diuresis
-Dobutamine discontinued this morning and awaiting repeat mixed venous
-Chest tube management per CT surgery
-Pacer wires per CT surgery
-Continue supportive postop care
Progress Note - Stunt Man
Subjective
Date of Service: December 29, 2023
Seen and examined sitting out of bed to chair on mid flow O2
Objective
Labs:
12/29/23 03:42
Labs
Hgb 8.1 g/dL (13.0-18.0) L 12/29/23 03:42
Hct 24.3 % (39.0-52.0) L 12/29/23 03:42
Plt Count 144 10^3/uL (130-400) D 12/29/23 03:42
PT 15.0 Sec (11.4-14.6) H 12/28/23 02:41
INR 1.20 12/28/23 02:41
APTT 33.3 Sec (23.4-35.0) 12/27/23 12:39
Sodium 139 mmol/L (135-145) 12/29/23 08:41
Potassium 4.3 mmol/L (3.5-5.1) 12/29/23 08:41
BUN 46 mg/dl (9-20) H 12/29/23 08:41
Creatinine 1.8 mg/dL (0.7-1.3) H 12/29/23 08:41
Glucose 123 mg/dl (70-99) H 12/29/23 08:41
Vital Signs and I&O:
Vital Signs
Temp Pulse Resp BP Pulse Ox
99.6 F 90 20 106/82 96
12/29/23 10:50 12/29/23 11:00 12/29/23 11:00 12/29/23 11:00 12/29/23 11:32
Vital Signs
Temp Pulse Resp BP Pulse Ox
99.6 F 90 20 106/82 96
12/29/23 10:50 12/29/23 11:00 12/29/23 11:00 12/29/23 11:00 12/29/23 11:32
Intake & Output
12/27/23 12/28/23 12/29/23 12/30/23
06:59 06:59 06:59 06:59
Intake Total 1563.5 / 1589.3 2362.4 / 2385.3 155.7 / 155.7
Output Total 1143 / 1188 1164 / 1229 245 / 245
Balance 420.5 / 401.3 1198.4 / 1156.3 -89.3 / -89.3
Physical Exam
Physical Exam
GEN: Awake alert and oriented sitting out of bed to chair with mid flow O2
HEENT: mmm
LUNGS: CTA, no wheezes/rales
CV: Reg, S1/S2, + rub. Positive chest tube. Positive pacer wires
ABD: soft, BS+, NT/ND
EXT: trace B/L LE edema and UE edema. LEs wrapped with EUGENIO
NEURO: Gross non-focal
[2023-12-29] MEDS: LASIX 40 MG IV (12:10)
--- NOTE | 2023-12-29 12:10 | CM ---
CM following for DC planning needs.
Pt. is POD#2 from AVR, CABG.
Met w/ spouse at bedside; pt. was asleep.
Reviewed DC plan for home w/ CT Transitional Care RN.
CM to cont. to follow.
--- NOTE | 2023-12-29 12:15 | PTCARENOTE ---
VSS. NSR on monitor. Uledi/Vince catheter d/c'ed. pt tolerated removal. High flow 50L@50%. Nursing assessment unchanged. Pt resting in bed.
[2023-12-29 12:22] LABS: HCO3 23.5 mmol/L (21-28); O2 Saturation % 98.4 % (94-98); PCO2 37 mmHg (35-48); PO2 92 mmHg (83-108); pH 7.41 (7.35-7.45)
[2023-12-29 12:47] LABS: Blood Urea Nitrogen 49 mg/dl (9-20); Calcium 8.8 mg/dl (8.4-10.2); Carbon Dioxide 23 mmol/L (22-30); Chloride 104 mmol/L (98-107); Estimated Creatinine Clearance 40 ml/min; Glucose 117 mg/dl (70-99); Potassium 4.5 mmol/L (3.5-5.1); Sodium 138 mmol/L (135-145); eGFR 38.05
[2023-12-29] MEDS: NSS 500 IV (12:49)
--- NOTE | 2023-12-29 13:04 | PTCARENOTE ---
VSS. NSR on monitor. A-Line d/c'ed. pt tolerated. High flow NS 40L@50%. Pt resting in bed.
[2023-12-29] MEDS: FERRLECIT 110 MG IV (14:37)
--- NOTE | 2023-12-29 15:11 | W.PN.INTV ---
Today's Communication / Plan
Recommendations
Wean down high flow oxygen
Continue nebulizer
Diuresis as able
Analgesia
Increase activity as able
Incentive spirometer
Follow chest tube output.
Will follow
Assessment
-
Status post AVR/CABG-12/27/2023
Postoperative mechanical ventilation
Postoperative anemia
Conditions present prior admission:
Coronary artery disease with prior stents
History of sinusitis
Hiatal hernia
History of peptic ulcer disease
Thyroid nodules
History of prostate cancer in 2015 status postchemotherapy
Fatty liver
CLL
Obesity
COPD-not followed locally-on Brovana/Yupelri/budesonide
Spirometry 12/22/2023: FEV1/FVC 61%, FEV1 2.34 L - 85%, FVC 3.31 L - 90% mild airflow obstruction
Assessment and plan:
Postoperative day 2
Overnight developed some hypoxemia, increased work of breathing requiring high flow oxygen.
This morning feels better after diuresis.
Not bronchospastic on exam.
40% FiO2 50% liters per minute. After moving from the bed to the chair no significant oxygen desaturation. Okay to transition to nasal cannula.
Chest x-ray: No acute infiltrates this morning 12/29/2023. No evidence for pneumothorax.
Incentive spirometry
Continue diuresis as necessary
Continue nebulizer/inhalers as you are doing.
No indication for systemic corticosteroids
Continue analgesia
Increase activity as able
Incentive spirometry was encouraged
-
Anemia noted-no evidence of acute bleeding
Follow leukocytosis. Improving, afebrile
Continue to follow with daily CBC
Hemodynamics -improved. Currently off inotropes.
Blood pressure remains liable
Arterial line has been discontinued
Acute kidney injury. Continue hemodynamic support as able
Avoid other nephrotoxins
Follow urinary output
Chest tube with no excessive drainage-no air leak.
Chest x-ray 4reviewed: With no pneumothorax or fluid collections.
Advance diet as tolerated
Head of the bed elevation
History of COPD: Not bronchospastic. Continue nebulizers. Does not follow-up locally. Has a pulmonary doctor.
Spirometry noted with mild to moderate airflow obstruction without restriction.
Restriction likely due to obesity.
Glycemic control per protocol
DVT prophylaxis when safe from the surgical perspective.
Patient remains on telemetry phase.
Pulmonary will continue to follow until high flow oxygen is discontinued
Subjective Dataa
Subjective Data
Date of Service:
Date of Service: December 29, 2023
Chief Complaint: Glass Blower Follow Up (Status post coronary artery bypass/AVR)
Subjective:
Overnight patient required high flow oxygen.
This morning feels better. Now sitting out of bed on low rate high flow oxygen.
Denies any wheezing
Patient diuresed.
Pain is relatively controlled.
Review of Systems
General: Fever (n)
Cardiopulmonary: Dyspnea (none at rest)
GI: Abdominal Pain (n) and Nausea (n)
Neuro: Headache (n)
Objective Data
Data Reviewed
Vital Signs / I&O / Oxygen:
Vital Signs
Temp Pulse Resp BP Pulse Ox
99.4 F 89 20 132/56 95
12/29/23 12:00 12/29/23 15:02 12/29/23 15:02 12/29/23 15:02 12/29/23 15:00
Intake and Output
12/28/23 12/29/23 12/30/23
06:59 06:59 06:59
Intake Total 1563.5 / 1589.3 2362.4 / 2385.3 765.7 / 765.7
Output Total 1143 / 1188 1164 / 1229 670 / 670
Balance 420.5 / 401.3 1198.4 / 1156.3 95.7 / 95.7
SaO2 [CPAP] 93
SaO2 [SIMV] 97
SaO2 95
Nasal Cannula flow liters per 50
minute
Physical Exam
General: Comfortable
HEENT: Normocephalic
Cardiovascular: S1-S2
Respiratory: Clear, Wheeze (n), Non-Labored Respirations and Chest Tube (No air leak. No excessive drainage.)
GI: Soft and Non Distended
Neurology: Awake and Alert
Skin: Warm
Labs/Micro/Reports
Lab Data
12/29/23 03:42
Laboratory Results
12/28/23 12/28/23 12/28/23
15:05 20:51 21:07
pH 7.37 7.42 Cancelled
pCO2 35 36 Cancelled
pO2 64 L 72 L Cancelled
HCO3 20.2 L 23.4 Cancelled
O2 Delivery Level Cancelled
12/28/23 12/29/23 12/29/23
23:01 03:42 08:41
pH 7.41 7.42 7.42
pCO2 37 34 L 37
pO2 85 117 H 87
HCO3 23.5 22.1 24.0
O2 Delivery Level 40%
12/29/23 12/29/23
12:04 18:00
pH 7.41 Cancelled
pCO2 37 Cancelled
pO2 92 Cancelled
HCO3 23.5 Cancelled
O2 Delivery Level Cancelled
--- NOTE | 2023-12-29 16:00 | PTCARENOTE ---
VSS, NSR on monitor. Pt OOB for meals x 2 assist. High flow NC continued 50L@40%. Nursing assessment unchanged from prior. Pt resting in chair.
[2023-12-29] MEDS: LEXAPRO 5 MG PO (17:34)
[2023-12-29] MEDS: CRESTOR 40 MG PO (17:34)
[2023-12-29 19:31] LABS: Blood Urea Nitrogen 49 mg/dl (9-20); Calcium 8.7 mg/dl (8.4-10.2); Carbon Dioxide 25 mmol/L (22-30); Chloride 101 mmol/L (98-107); Estimated Creatinine Clearance 40 ml/min; Glucose 124 mg/dl (70-99); Potassium 4.3 mmol/L (3.5-5.1); Sodium 138 mmol/L (135-145); eGFR 38.05
[2023-12-29] MEDS: PULMICORT 0.25 MG INH (19:45)
--- NOTE | 2023-12-29 20:00 | PTCARENOTE ---
PT AAOx3 w/ intermittent times of confusion, easily reoriented. VSS NS on High flow O2 50/40%. GI hypoactive BS, obrien w/ adequite output, all surgical sights CDI, RIJ & IV wnl. see worklist for detailed assessment.
[2023-12-29] MEDS: ZETIA 10 MG PO (20:52)
[2023-12-29 21:14] LABS: B.E. 0.5 mmol/L; HCO3 23.6 mmol/L (21-28); O2 Saturation % 96.4 % (94-98); PCO2 31 mmHg (35-48); PO2 67 mmHg (83-108); pH 7.49 (7.35-7.45)
[2023-12-30] VITALS (32 sets, daily range): BP systolic 105–160; BP diastolic 19–91; PULSE 100–101; O2SAT 70–94; BMI 33.7
--- NOTE | 2023-12-30 | PTCARENOTE ---
pt on midflow o2 15L, no change from previous assessment
[2023-12-30 01:25] LABS: Blood Urea Nitrogen 47 mg/dl (9-20); Calcium 8.4 mg/dl (8.4-10.2); Carbon Dioxide 25 mmol/L (22-30); Chloride 100 mmol/L (98-107); Estimated Creatinine Clearance 42 ml/min; Glucose 110 mg/dl (70-99); Potassium 4.2 mmol/L (3.5-5.1); Sodium 135 mmol/L (135-145); eGFR 40.75
--- NOTE | 2023-12-30 01:27 | W.PN.CT ---
Today's Communication / Plan
-
Mild confusion overnight, Reorients quickly
Continue acepella for coughing��
Continue midflow for O2 sat > 90�
Maintain obrien. Monitor DEANDRE, cr 1.5, 1.6�
Monitor chest tube drainage: 2med = 245/37=237
40mg of lasix on 12/28 (minimal response)
UOP =770/545 =1315
Maintain cordis and temporary PW��
Wean off of O2 as tolerated�
Encourage use of IS�
OOB into chair/Ambulate�
Cont. current meds (ASA, Zetia, Crestor, Pulmicort, Spiriva, Lexapro, Plavix,�
Amiodarone and Lopressor are on hold while on Dobutamine gtt)�
�
Assessment / Plan
-
Assessment:
-S/p Standard sternotomy with aortic and right atrial cannulation/ CABG x 4 (In situ PAYAN to LAD, Ao to RSVG to Diag seq to OM2/LPL, Ao to RSVG to RPDA)/Surgical aortic valve replacement [23mm biological valve], by Dr. Martínez, 12/27/23, pod#3
-Multivessel coronary disease
-Hx NSTEMI S/P PCI with multiple stents (JOHNY to D1 and OM1, 05/2010), JOHNY to RCA, 02/2009
-Recent Abnormal stress test
-Moderately-severe aortic valve stenosis
-Mild TR
-Hyperlipidemia
-Class 1 obesity (BMI 31.3)
-Prediabetes (hgb A1C 5.7)
-Hypertension
-Villareal's esophagus/GERD/Hiatal hernia
-History of CLL
-Vestibular neuritis
-Colonic Extavia
-Peptic ulcer disease
-Diverticulosis
-Thyroid nodules
-DJD/OA
-Neuropathy
-History of vertebral fracture
-Inguinal hernia
-Prostate cancer treated with chemotherapy, 2014
-Fatty liver new
-Bronchiectasis/COPD
-Acute postop blood loss/Anemia (stable without blood transfusion)
-Acute postop atelectasis
-Acute postop hypovolemia with subsequent hypervolemia
-Acute postop DEANDRE
-Acute postop hyperkalemia/magnesemia
Subjective
Procedure
-S/p Standard sternotomy with aortic and right atrial cannulation/ CABG x 4 (In situ PAYAN to LAD, Ao to RSVG to Diag seq to OM2/LPL, Ao to RSVG to RPDA)/Surgical aortic valve replacement [23mm biological valve], by Dr. Martínez, 12/27/23,
-
Date of Service: December 30, 2023
Objective Data
-
PT 15.0 Sec (11.4-14.6) H 12/28/23 02:41
INR 1.20 12/28/23 02:41
APTT 33.3 Sec (23.4-35.0) 12/27/23 12:39
Vital Signs
Vital Signs
Temp Pulse Resp BP Pulse Ox
98.0 F 83 22 133/53 97
12/29/23 23:29 12/30/23 01:00 12/30/23 01:00 12/30/23 01:00 12/30/23 01:00
CT Intake/Output/Weight
12/29/23 12/29/23 12/30/23
06:59 18:59 06:59
Intake Total 464.8 / 2385.3 895.7 / 1145.7 250 / 1145.7
Output Total 690 / 1229 1015 / 1460 445 / 1460
Balance -225.2 / 1156.3 -119.3 / -314.3 -195 / -314.3
SaO2: 97
Physical Exam
-
General: Other (AAO*3 with periods of confused speech)
Cardiovascular: Regular rate & rhythm
Respiratory: Clear
Sternum: Stable
Incision: Clean, Dry and Intact
Extremities: Edema +1
--- NOTE | 2023-12-30 04:00 | PTCARENOTE ---
no change from previous assessment
[2023-12-30 06:05] LABS: Hematocrit 22.6 % (39.0-52.0); Hemoglobin 7.4 g/dL (13.0-18.0); Mean Corp Hgb Conc. 32.7 g/dL (33.0-37.0); Mean Corpuscular Hgb 29.2 pg (27.0-31.0); Mean Corpuscular Volume 89.3 fL (80.0-94.0); Mean Platelet Volume 10.6 fL (7.4-10.4); Platelet Count 129 10^3/uL (130-400); Red Blood Cell Count 2.53 10^6/uL (4.70-6.10); White Blood Cell Count 11.7 10^3/uL (4.8-10.8)
[2023-12-30 06:29] LABS: Blood Urea Nitrogen 45 mg/dl (9-20); Calcium 8.5 mg/dl (8.4-10.2); Carbon Dioxide 25 mmol/L (22-30); Chloride 102 mmol/L (98-107); Estimated Creatinine Clearance 45 ml/min; Glucose 107 mg/dl (70-99); Magnesium 2.5 mg/dl (1.6-2.3); Potassium 4.3 mmol/L (3.5-5.1); Sodium 138 mmol/L (135-145); eGFR 43.83
[2023-12-30] MEDS: SPIRIVA RESPIMAT 2.5 MCG 2 PUFF INH (07:24)
[2023-12-30] MEDS: VENTOLIN NEBULES 2.5 MG INH ×3 (07:24→19:43)
[2023-12-30] MEDS: PULMICORT 0.25 MG INH ×2 (07:24→19:43)
--- NOTE | 2023-12-30 08:00 | PTCARENOTE ---
pt received from previous RN, oriented, OOB in chair. SR/ST on the the monitor, HR 90s-100s. V wire in place, VVI 40/20. SBP 140-160s. palpable pulses, +2 hand/foot edema. 13L MF, 98% POX. lungs coarse. +productive cough. IS encouraged, Acapella
encouraged. chest PT performed. CTx2, no air leak or crepitus noted. pt abdomen round, s/n, denies n/v. poor appetite. Orozco in place, clear yellow urine. sternal incision FASHION DESIGN PROFESSOR, approximated. chest tube site c/d/i. R groin 4x4 intact, L groin LIA.
b/l LE incisions FASHION DESIGN PROFESSOR. RIJ cordis maintained. PIV. see worklist for VS, I&O, and assessment.
[2023-12-30] MEDS: TYLENOL 1000 MG PO ×2 (08:09→14:52)
--- NOTE | 2023-12-30 08:37 | PTCARENOTE ---
pt placed back to bed x2 assist, unsteady on feet. ACID LEVELER Angélica Arauz pulled Vwire, q15 VS in process. updated.
[2023-12-30] MEDS: LOW STRENGTH ASPIRIN 81 MG PO (08:58)
[2023-12-30] MEDS: VITAMIN C 500 MG PO (08:58)
[2023-12-30] MEDS: MUCINEX 1200 MG PO (08:58)
[2023-12-30] MEDS: NEURONTIN 100 MG PO (08:58)
[2023-12-30] MEDS: FLOMAX 0.4 MG PO (08:58)
[2023-12-30] MEDS: OSCAL CAL 500 500 MG PO (08:58)
[2023-12-30] MEDS: CLARITIN 10 MG PO (08:59)
[2023-12-30] MEDS: SENOKOT-S 1 TABLET PO (08:59)
[2023-12-30] MEDS: PROTONIX 40 MG PO (08:59)
[2023-12-30] MEDS: DIAMOX 250 MG PO (08:59)
[2023-12-30] MEDS: BUMEX 2 MG IV (08:59)
[2023-12-30] MEDS: PLAVIX 75 MG PO (08:59)
[2023-12-30] MEDS: THERAGRAN 1 TABLET PO (08:59)
[2023-12-30] MEDS: BACTROBAN 2% OINTMENT 1 APPLIC NASAL (09:00)
--- NOTE | 2023-12-30 09:42 | PTCARENOTE ---
SPORTS JOURNALIST aware of CT output, Mediastinal CTs dc'd as ordered. dressing c/d/i. pt OOB to chair w/ CR.
--- NOTE | 2023-12-30 11:15 | W.PN.CARDCBS ---
Today's Communication / Plan
-
Wean O2 as able
Pulmonary toilet, incentive spirometry
Diurese
Optimize medical therapy
Impression / Plan
-
PCP:
Primary Health And Safety Tech: Dr. Parker
Impression:
CAD
s/p JOHNY to RCA 02/2009
NSTEMI and JOHNY to Diag-1 and OM-1 05/2010
POD #1 s/p CABG with PAYAN to LAD, SVG sequential to Diab and OM-2/LPL, SVG to RPDA 12/27/23
s/p tissue AVR for moderate to severe , POD #1
Mod MR by echo 11/04/23
CLL
Prostate cancer
h/o sinus bradycardia and 6 second pause leading to syncope 2016
h/o GERD and Villareal's
Echo 11/04/2023: EF 60 to 65%, moderate MR, moderate AAS mean gradient 29 mmHg, LIZA 0.8 cm sq, mild aortic insufficiency
Plan:
-S/p Standard sternotomy with aortic and right atrial cannulation/ CABG x 4 (In situ PAYAN to LAD, Ao to RSVG to Diag seq to OM2/LPL, Ao to RSVG to RPDA)/Surgical aortic valve replacement [23mm biological valve], by Dr. Martínez, 12/27/23, pod#2
-Wean mid flow O2 as able
-Pulmonary toilet and we reviewed use of acepella and incentive spirometry
-Continue IV diuresis
-Off pressors and inotropes. Lopressor resumed. Consider resuming amiodarone prophylaxis
-Continue aspirin/Plavix
-Continue lipid therapy for goal LDL less than 55 mg/dL. Currently on rosuvastatin and ezetimibe.
-Monitor hemoglobin, currently 7.4. Platelets slightly low today at 129.
-Monitor renal function with diuresis, improved, currently 1.6 with baseline 1.1�1.3
-Chest tube management per CT surgery.
-Orozco per CT surgery while being diuresed
-Pacer wires per CT surgery
-Continue supportive postop care
Discussed with patient and at bedside. Reviewed plan with CT surgery PA
Progress Note - Health And Safety Tech
Subjective
Date of Service: December 30, 2023
Sitting out of bed to chair. Reporting cough and shortness of breath although improved when compared to yesterday. Incisional soreness but no chest pain. Major complaint is discomfort with Orozco catheter
Objective
Labs:
12/30/23 05:34
12/30/23 05:34
Labs
Hgb 7.4 g/dL (13.0-18.0) L 12/30/23 05:34
Hct 22.6 % (39.0-52.0) L 12/30/23 05:34
Plt Count 129 10^3/uL (130-400) L 12/30/23 05:34
PT 15.0 Sec (11.4-14.6) H 12/28/23 02:41
INR 1.20 12/28/23 02:41
APTT 33.3 Sec (23.4-35.0) 12/27/23 12:39
Sodium 138 mmol/L (135-145) 12/30/23 05:34
Potassium 4.3 mmol/L (3.5-5.1) 12/30/23 05:34
BUN 45 mg/dl (9-20) H 12/30/23 05:34
Creatinine 1.6 mg/dL (0.7-1.3) H 12/30/23 05:34
Glucose 107 mg/dl (70-99) H 12/30/23 05:34
Vital Signs and I&O:
Vital Signs
Temp Pulse Resp BP Pulse Ox
99.5 F 101 22 126/72 99
12/30/23 11:00 12/30/23 11:03 12/30/23 11:03 12/30/23 11:03 12/30/23 11:03
Vital Signs
Temp Pulse Resp BP Pulse Ox
99.5 F 101 22 126/72 99
12/30/23 11:00 12/30/23 11:03 12/30/23 11:03 12/30/23 11:03 12/30/23 11:03
Intake & Output
12/28/23 12/29/23 12/30/23 12/31/23
06:59 06:59 06:59 06:59
Intake Total 1563.5 / 1589.3 2362.4 / 2385.3 1145.7 / 1155.7 300 / 300
Output Total 1143 / 1188 1164 / 1229 1810 / 1810 130 / 130
Balance 420.5 / 401.3 1198.4 / 1156.3 -664.3 / -654.3 170 / 170
Physical Exam
Physical Exam
GEN: Awake alert and oriented sitting out of bed to chair with mid flow O2
HEENT: mmm
LUNGS: CTA, no wheezes/rales
CV: Reg, S1/S2, + rub. Positive chest tube. Positive pacer wires
ABD: soft, BS+, NT/ND
EXT: trace B/L LE edema and UE edema. LEs wrapped with EUGENIO
NEURO: Gross non-focal
[2023-12-30] MEDS: LOPRESSOR 12.5 MG PO (11:58)
--- NOTE | 2023-12-30 12:09 | PTCARENOTE ---
pt VSS, 4LNC, 94% POX. IS and acapella encouraged. pt ambulated w/ RW w/ PT/OT. OOB in chair for lunch. oral hygiene performed.
--- NOTE | 2023-12-30 13:24 | W.PN.INTV ---
Addendum entered and electronically signed by Perfecto Parra MD 12/30/23 14:46:
Oxygen has been weaned down to 3 L.
Patient is off inotrope
Continue secretion clearance interventions
Continue postoperative care
No additional recommendation from the critical care perspective
Sign of
Addendum entered and electronically signed by Perfecto Parra MD 12/30/23 13:31:
Unable to add antitussive.
Patient has multiple allergies with cross reactivity
Original Note:
Today's Communication / Plan
Recommendations
Continue nebulizer therapy Pulmicort
Continue Spiriva
Will add antitussive
Incentive spirometry as able
Wean off oxygen
Diuretics
Increase activity as tolerated
Aspiration precaution
Follow chest tube output
Assessment
-
Status post AVR/CABG-12/27/2023
Postoperative mechanical ventilation
Postoperative anemia
Conditions present prior admission:
Coronary artery disease with prior stents
History of sinusitis
Chronic cough
Hiatal hernia
History of peptic ulcer disease
Thyroid nodules
History of prostate cancer in 2015 status postchemotherapy
Fatty liver
CLL
Obesity
COPD-not followed locally-on Brovana/Yupelri/budesonide
Spirometry 12/22/2023: FEV1/FVC 61%, FEV1 2.34 L - 85%, FVC 3.31 L - 90% mild airflow obstruction
Assessment and plan:
Postoperative day 3
Hypoxemia improving: High flow oxygen has been discontinued
Continue diuresis as able
Not bronchospastic on exam.
Patient has a chronic cough that has been going on for years in the outpatient setting. Manage by his employment security officer
Hopefully can be transition to nasal cannula oxygen to wean off. Does not use oxygen chronically.
Chest x-ray: Reviewed, no acute infiltrates this morning 12/30/2023
Incentive spirometry
Will add antitussive guaifenesin dextromethorphan as needed
-
Continue nebulizer/inhalers as you are doing. Pulmicort/Spiriva. Can consider transition to nebulized therapy if there is pulmonary congestion. Currently not bronchospastic.
Continue analgesia
Increase activity as able
Incentive spirometry was encouraged
-
Anemia noted-no evidence of acute bleeding
Follow leukocytosis. Improving, afebrile
He has received 1 unit of packed red blood cells during this admission.
Today hemoglobin 7.4.
Continue to follow, transfuse as necessary
Hemodynamics -improved.
Intermittent dobutamine cardiothoracic surgery
-
Acute kidney injury. Continue hemodynamic support as able
Avoid other nephrotoxins
Follow urinary output
Chest tube with no excessive drainage-no air leak.
Chest x-ray 4reviewed: With no pneumothorax or fluid collections. Left lower lobe atelectasis improved
Advance diet as tolerated
Head of the bed elevation
History of COPD: Spirometry noted with mild to moderate airflow obstruction without restriction.
Not bronchospastic. Continue nebulizers. Does not follow-up locally. Has a pulmonary doctor.
He is being followed for chronic cough as well in the outpatient setting.
I have noticed prior eosinophilia. Singulair may be an option in the future. Defer to his primary employment security officer
Restriction likely due to obesity.
Glycemic control per protocol
DVT prophylaxis when safe from the surgical perspective.
Patient remains on telemetry phase.
Pulmonary will follow.
Dr. Ramírez updated at the bedside 12/29/2019
Subjective Dataa
Subjective Data
Date of Service:
Date of Service: December 30, 2023
Chief Complaint: Revenue Collector Follow Up (Status post coronary artery bypass/AVR)
Subjective:
Patient offers no new complaints
Continues to have intermittent coughing which is a chronic problem in the outpatient setting
No significant phlegm production
Review of Systems
General: Fever (n)
Cardiopulmonary: Dyspnea (none at rest)
GI: Abdominal Pain (n) and Nausea (n)
Neuro: Headache (n)
Objective Data
Data Reviewed
Vital Signs / I&O / Oxygen:
Vital Signs
Temp Pulse Resp BP Pulse Ox
99.5 F 92 18 105/51 94
12/30/23 11:00 12/30/23 13:00 12/30/23 12:48 12/30/23 12:58 12/30/23 13:00
Intake and Output
12/29/23 12/30/23 12/31/23
06:59 06:59 06:59
Intake Total 2362.4 / 2385.3 1145.7 / 1155.7 320 / 320
Output Total 1164 / 1229 1810 / 1810 605 / 605
Balance 1198.4 / 1156.3 -664.3 / -654.3 -285 / -285
SaO2 [CPAP] 93
SaO2 [SIMV] 97
SaO2 94
Nasal Cannula flow liters per 3
minute
Physical Exam
General: Comfortable
HEENT: Normocephalic
Cardiovascular: S1-S2
Respiratory: Clear, Wheeze (n), Non-Labored Respirations and Chest Tube (No air leak. No excessive drainage.)
GI: Soft and Non Distended
Neurology: Awake and Alert
Skin: Warm
Labs/Micro/Reports
Lab Data
12/30/23 05:34
12/30/23 05:34
Laboratory Results
12/29/23
21:10
pH 7.49 H
pCO2 31 L
pO2 67 L
HCO3 23.6
O2 Delivery Level
[2023-12-30] MEDS: NSS IV (14:11)
[2023-12-30] MEDS: FERRLECIT 110 MG IV (14:52)
[2023-12-30 15:19] LABS: B.E. 0.5 mmol/L; Ionized Calcium 1.11 mMOL/L (1.15-1.33); O2 Saturation % 99.6 % (94-98); PCO2 33 mmHg (35-48); PO2 146 mmHg (83-108); Potassium 4.2 mMOL/L (3.5-5.1); Sodium 132 mMOL/L (136-145); pH 7.47 (7.35-7.45)
--- NOTE | 2023-12-30 15:28 | CM ---
Addendum entered by Glenis Stafford 12/30/23 16:00:
Telephone call to [facility]. Liaison to review referral if needed.
Original Note:
Reviewed chart. Met with Mr. Molina. He states he is feeling okay. We reviewed a hoe visit by the Cardiothoracic Transitional Care Nurse. Reviewed his therapy notes, currently he needed assistance will see how he does over the weekend. Prior to
admission he resides with his spouse in a twp story home without any steps to enter. . He has a full flight of steps to get to bedroom/full bathroom. He has a powder room on the first floor. Prior to admission he was independent with ambulation
and adls. He has a nebulizer and respiratory vest at home. He does not have a prescription plan and uses [facility]. Medical work-up in progress. The discharge plan is to return home with his spouse and a home visit by the Cardiothoracic
Transitional Care Nurse when medically stable.
--- NOTE | 2023-12-30 15:30 | PTCARENOTE ---
pt VSS, pt increasingly impulsive and confused, pt thought he was at home and had to make dinner in the kitchen, reoriented and able to tell RN year, president and situation. PYTHON ENGINEER aware. pt attempted to get back to bed on his own, was stuck between
bed and chair, assisted by 3 people to get back to chair. ABG drawn, PYTHON ENGINEER aware of results. 95% POX on 3LNC.
[2023-12-30 17:17] LABS: Glucose - Point of Care 124 mg/dl (70-99)
[2023-12-30] MEDS: SEROQUEL 25 MG PO (17:28)
[2023-12-30] MEDS: CRESTOR 40 MG PO (17:28)
[2023-12-30] MEDS: LEXAPRO 5 MG PO (17:28)
--- NOTE | 2023-12-30 17:48 | PTCARENOTE ---
POLITICAL ANTHROPOLOGIST aware of pt impulsivity, EKG completed, POLITICAL ANTHROPOLOGIST aware of QTC. ordered Seroquel given. BS 124. SCOTT equally, strength equal throughout. pt moved to room 2265 to be closer to nurses station. at bedside.
[2023-12-30] MEDS: HALDOL 1 MG IV (19:41)
--- NOTE | 2023-12-30 19:54 | PTCARENOTE ---
Patient confused and impulsive upon assuming care. Attempting to get oob without assistance, pulling at wires, punching and kicking at staff. CT PA notified. Received orders to restrain patient. Haldol ordered and administered. Patient calm at this
time. Will continue to monitor.
[2023-12-30] MEDS: CALCIUM CHLORIDE 10% SYRINGE 60 MG IV (20:30)
--- NOTE | 2023-12-30 20:30 | PTCARENOTE ---
Assumed care of patient at 1900. Patient found in bed at time of assessment. Patient is AOx3 DO place, confused, agitated, impulsive, forgetful. Patient placed in restraints as protective intervention. At this time patient is calm in response to
intervention previously agitated. Lung sounds are coarse and rhonci are present in the bilateral upper lobes. Patient had diminished lung sounds in the bases. Expiratory wheezing is present throughout saO2 is 98% on 5L via NC. Heart sounds are
audible, patient is SR on the monitor, patient has normal palpable pulses, there is +1 edema in the BUE, BLE and +2 edema in the scrotum. Patient has hypoactive BS present in all four quadrants, there is a obrien catheter present draining clear
yellow urine, patient is passing flatus. There is a sternal incision approx with surg adhesive LIA, a R groin puncture with 4x4 dressing that is CDI, and L groin puncture with 4x4 dressing that is CDI. There is an ABD dressing over CT wounds that is
CDI. Patient has a R IJ cordis receiving KVO and R arm 20 G. VSS. Will continue to monitor.
[2023-12-30] MEDS: SENOKOT-S PO (21:35)
[2023-12-30] MEDS: MUCINEX PO (21:35)
[2023-12-30] MEDS: LOPRESSOR PO (21:35)
[2023-12-30] MEDS: BACTROBAN 2% OINTMENT NASAL (21:39)
[2023-12-30] MEDS: CORDARONE 103 MG IV (22:01)
--- NOTE | 2023-12-30 23:00 | PTCARENOTE ---
Patient reassessed. VSS. Patient had approximate 15 second run of afib at 2125 preceded by increased ectopy with PACs. CT PA notified. Administered 1xamio bolus. Patient continues to be agitated at times trying to get oob when asked orientation
questions patient responded with 'a ship' to does he know where he is. Restraints to remain in place. SR on the monitor at this time.
[2023-12-31] VITALS (25 sets, daily range): BP systolic 69–142; BP diastolic 52–89; PULSE 87–90; O2SAT 98; BMI 32.5
[2023-12-31] MEDS: MELATONIN PO (01:21)
[2023-12-31] MEDS: ZETIA PO (01:21)
[2023-12-31] MEDS: TYLENOL PO ×2 (01:21→06:40)
[2023-12-31] MEDS: XOPENEX 1.25 MG INHALANT SOLUTION INH ×4 (01:56→18:08)
--- NOTE | 2023-12-31 04:38 | PTCARENOTE ---
Addendum entered by Axel Jenkins RN 12/31/23 04:48:
Patient attempted to spit on this RN and 1:1 assigned to this room with mucus from productive cough. Patient given xopenex tx from RT for SOB/wheezing.
Original Note:
Patient reassessed. When asked orientation questions patient answered them appropriately, however patient verbalized their intent to engage in physical violence against this RN if restraints were removed and to attempt to exit bed without
assistance. Restraints will remain on for now. All other VSS.
--- NOTE | 2023-12-31 04:59 | W.PN.CT ---
Today's Communication / Plan
-
Plan:
-Acute postop delirium, alert and oriented x 3, but impulsive. Agitated and combative last night requiring Seroquel, Haldol and restraints, was able to sleep overnight with improvement this AM
-Wants restraints off, will give trial off restraints. Currently has 1:1 observation. Looks much better this AM and may no longer require 1:1 observation
-Avoid narcotics if possible
-Cont. current meds (ASA, Plavix, Zetia, Amiodarone, BB, Flomax, Lexapro, Seroquel, Spiriva, Pulmicort, Xopenex PRN)
-Currently has Orozco in place given postop DEANDRE
-Consider 1u PRBC for h/h 7.5
-F/U AM labs, pending
-Encourage use of IS
-Wean off O2
-OOB into chair
Assessment / Plan
-
Assessment:
-S/p Standard sternotomy with aortic and right atrial cannulation/ CABG x 4 (In situ PAYAN to LAD, Ao to RSVG to Diag seq to OM2/LPL, Ao to RSVG to RPDA)/Surgical aortic valve replacement [23mm biological valve], by Dr. Martínez, 12/27/23, pod#4
-Multivessel coronary disease
-Hx NSTEMI S/P PCI with multiple stents (JOHNY to D1 and OM1, 05/2010), JOHNY to RCA, 02/2009
-Recent Abnormal stress test
-Moderately-severe aortic valve stenosis
-Mild TR
-Hyperlipidemia
-Class 1 obesity (BMI 31.3)
-Prediabetes (hgb A1C 5.7)
-Hypertension
-Villareal's esophagus/GERD/Hiatal hernia
-History of CLL
-Vestibular neuritis
-Colonic Extavia
-Peptic ulcer disease
-Diverticulosis
-Thyroid nodules
-DJD/OA
-Neuropathy
-History of vertebral fracture
-Inguinal hernia
-Prostate cancer treated with chemotherapy, 2014
-Fatty liver new
-Bronchiectasis/COPD
-Acute postop blood loss/Anemia (stable without blood transfusion)
-Acute postop atelectasis
-Acute postop hypovolemia with subsequent hypervolemia
-Acute postop DEANDRE
-Acute postop hyperkalemia/magnesemia
-Acute postop delirium
Discussed patient care with: Cardiology, Nursing, Respiratory Therapy, Pharmacy and Care Team
Subjective
Procedure
-S/p Standard sternotomy with aortic and right atrial cannulation/ CABG x 4 (In situ PAYAN to LAD, Ao to RSVG to Diag seq to OM2/LPL, Ao to RSVG to RPDA)/Surgical aortic valve replacement [23mm biological valve], by Dr. Martínez, 12/27/23,
-
Date of Service: December 31, 2023
Pt agitated and confused postop, currently requiring 1:1 observation
Objective Data
-
PT 15.0 Sec (11.4-14.6) H 12/28/23 02:41
INR 1.20 12/28/23 02:41
APTT 33.3 Sec (23.4-35.0) 12/27/23 12:39
Vital Signs
Vital Signs
Temp Pulse Resp BP Pulse Ox
99.2 F 93 18 127/70 98
12/31/23 03:11 12/31/23 04:00 12/31/23 01:59 12/31/23 04:00 12/31/23 04:00
CT Intake/Output/Weight
12/30/23 12/30/23 12/31/23
06:59 18:59 06:59
Intake Total 250 / 1155.7 470 / 570 100 / 570
Output Total 795 / 1810 1005 / 1530 525 / 1530
Balance -545 / -654.3 -535 / -960 -425 / -960
SaO2: 98 (RA)
Physical Exam
-
General: Awake, Oriented, AOx3 (but impulsive) and Other
Cardiovascular: Regular rate & rhythm, No Rub and No Gallop
Respiratory: Wheeze and Decreased Breath Sounds (at bases with some expiratory wheezing)
Incision: Clean, Dry and Intact
Extremities: No Edema
Data Reviewed
-
Lab Results: Results Reviewed
Medications: Active Meds Reviewed
Chest X-Ray: Report Reviewed and Image Reviewed
ECG: Report Reviewed and Image Reviewed
--- NOTE | 2023-12-31 05:28 | PTCARENOTE ---
CT PA at bedside to assess patient neurological status. Patient fully oriented agreeing to be compliant with activity restrictions. Per CT PA remove wrist restraints. Patient tolerated and was cooperative following removal of restraint will continue
to monitor.
[2023-12-31 05:34] LABS: Hematocrit 22.6 % (39.0-52.0); Hemoglobin 7.5 g/dL (13.0-18.0); Mean Corp Hgb Conc. 33.2 g/dL (33.0-37.0); Mean Corpuscular Hgb 30.6 pg (27.0-31.0); Mean Corpuscular Volume 92.2 fL (80.0-94.0); Mean Platelet Volume 10.9 fL (7.4-10.4); Platelet Count 142 10^3/uL (130-400); Red Blood Cell Count 2.45 10^6/uL (4.70-6.10); Red Cell Dist. Width 15.7 % (11.5-14.5); White Blood Cell Count 10.6 10^3/uL (4.8-10.8)
[2023-12-31 05:43] LABS: Blood Urea Nitrogen 41 mg/dl (9-20); Calcium 8.7 mg/dl (8.4-10.2); Carbon Dioxide 24 mmol/L (22-30); Chloride 104 mmol/L (98-107); Estimated Creatinine Clearance 40 ml/min; Glucose 95 mg/dl (70-99); Magnesium 2.5 mg/dl (1.6-2.3); Sodium 139 mmol/L (135-145); eGFR 38.05
[2023-12-31] MEDS: PLAVIX 75 MG PO (07:17)
[2023-12-31] MEDS: OSCAL CAL 500 500 MG PO (07:17)
[2023-12-31] MEDS: MUCINEX 1200 MG PO ×2 (07:18→19:31)
[2023-12-31] MEDS: THERAGRAN 1 TABLET PO (07:18)
[2023-12-31] MEDS: PROTONIX 40 MG PO (07:18)
[2023-12-31] MEDS: FLOMAX 0.4 MG PO (07:18)
[2023-12-31] MEDS: LOW STRENGTH ASPIRIN 81 MG PO (07:18)
[2023-12-31] MEDS: LOPRESSOR 12.5 MG PO (07:18)
[2023-12-31] MEDS: SENOKOT-S 1 TABLET PO ×2 (07:18→19:31)
[2023-12-31] MEDS: CLARITIN 10 MG PO (07:18)
[2023-12-31] MEDS: SPIRIVA RESPIMAT 2.5 MCG 2 PUFF INH (07:28)
[2023-12-31] MEDS: PULMICORT 0.25 MG INH ×2 (07:28→18:08)
[2023-12-31] MEDS: BACTROBAN 2% OINTMENT 1 APPLIC NASAL (08:00)
--- NOTE | 2023-12-31 08:00 | PTCARENOTE ---
patient care assumed from nightshift RN. Patient fully alert and oriented. NSR. Palpable pulses in bilateral upper and lower extremities. +2/+3 scrotal edema present. Orozco catheter in place, catheter care performed. 3LNC, lung sounds coarse,
rhonchi, inspiratory wheezes present. O2 saturation 97%. Patient reports feeling comfortable. Chronic cough with thick sputum production, suction set up and available for patient. Breakfast well tolerated. No BM yet. Surgical incisions clean, dry,
intact, ecchymosis present. RIJ cordis patent, PIV present.
[2023-12-31] MEDS: VITAMIN C 1000 MG PO (09:25)
--- NOTE | 2023-12-31 11:44 | PTCARENOTE ---
Orozco discontinued at 0915, pt due to void at 1515. PT/OT came to work with patient, OOB to chair, remains on 3LNC. O2 saturations remain 95%. Assessment otherwise unchanged. Tolerating lunch, is bedside, patient denies pain. Continues with
frequent productive cough, using suction as needed.
[2023-12-31] MEDS: NSS 500 IV (12:54)
[2023-12-31] MEDS: FERRLECIT 110 MG IV (15:33)
[2023-12-31] MEDS: TYLENOL 1000 MG PO ×2 (15:33→20:59)
[2023-12-31] MEDS: LEXAPRO 5 MG PO (18:03)
[2023-12-31] MEDS: CRESTOR 40 MG PO (18:03)
--- NOTE | 2023-12-31 18:47 | PTCARENOTE ---
Patient OOB for dinner, tolerating meals well. Ambulates with assistance x2. Patient still remains fully alert and oriented, but has episodes of confusion and forgetfulness. Denies Pain. Remains on 3LNC. Pt voiding in urinal but has some episodes
of slight incontinence. Bladder scanned for 200cc. RIJ Cordis remains with KVO.
[2023-12-31] MEDS: LOPRESSOR 25 MG PO (19:31)
--- NOTE | 2023-12-31 20:00 | PTCARENOTE ---
Assumed care of patient at 1900. Patient found OOB in chair at time of assessment. Patient is AOx4, confused and forgetful at times, follows commands appropriately, moves all extremities. Lung sounds have rhonci throughout the bilateral upper lobes
with a WOE, bases are diminishes saO2 is 98% on RA. Heart sounds have a regular rate and rhythm. Patient has normal palpable pulses, +1 BLE, trace BUE, and +2 scrotal edema. Patient is SR/ST on the monitor with a BBB. Patient has active BS and is
voiding clear yellow. Patient with episodes of stress incontinence. Patient has a R IJ cordis receiving KVO, and R Hand 18G PIV. VSS.
[2023-12-31] MEDS: MELATONIN 5 MG PO (20:59)
[2023-12-31] MEDS: ZETIA 10 MG PO (20:59)
[2024-01-01] VITALS (17 sets, daily range): BP systolic 95–153; BP diastolic 51–87; PULSE 71; O2SAT 97; BMI 32.6
--- NOTE | 2024-01-01 | PTCARENOTE ---
Patient reassessed. VSS. No c/o pain. Patient's metoprolol increased form 12.5 to 25 for tachycardia. Seroquel held at HS. Patient currently SR on the monitor.
--- NOTE | 2024-01-01 00:20 | W.PN.CT ---
Today's Communication / Plan
-
Plan:
-Pt unfortunately went into a-fib with RVR this AM @ 0630, will give Amiodarone bolus
-Off all drips
-Acute postop delirium, has resolved. alert and oriented x 3, no longer impulsive
-Currently has 1:1 observation. Looks much better and does not appear to warrant 1:1 observation
-Avoid narcotics if possible
-Cont. current meds (ASA, Plavix, Zetia, Amiodarone, BB, Flomax, Lexapro, Seroquel-held last night, Spiriva, Pulmicort, Xopenex PRN)
-D/C'd obrien cathether yesterday 12/30, monitor urine output, post-void residual given postop DEANDRE
-Consider 1u PRBC for h/h 7.0/21.9 with 20 mg IV Lasix to follow, was 7.5/22 yesterday. Should help with perfusion of kidney and creatinine of 1.8
-D/C cordis after transfusion
-Monitor cr 1.8, lives around 1.1-1.3
-Encourage use of IS
-Wean off O2 as tolerated
-F/U 2-view cxr
-OOB into chair/Ambulate
-PT/OT following and recommends acute rehab, Physiatry to evaluate for Freedman
Assessment / Plan
-
Assessment:
-S/p Standard sternotomy with aortic and right atrial cannulation/ CABG x 4 (In situ PAYAN to LAD, Ao to RSVG to Diag seq to OM2/LPL, Ao to RSVG to RPDA)/Surgical aortic valve replacement [23mm biological valve], by Dr. Martínez, 12/27/23, pod#5
-Multivessel coronary disease
-Hx NSTEMI S/P PCI with multiple stents (JOHNY to D1 and OM1, 05/2010), JOHNY to RCA, 02/2009
-Recent Abnormal stress test
-Moderately-severe aortic valve stenosis
-Mild TR
-Hyperlipidemia
-Class 1 obesity (BMI 31.3)
-Prediabetes (hgb A1C 5.7)
-Hypertension
-Villareal's esophagus/GERD/Hiatal hernia
-History of CLL
-Vestibular neuritis
-Colonic Extavia
-Peptic ulcer disease
-Diverticulosis
-Thyroid nodules
-DJD/OA
-Neuropathy
-History of vertebral fracture
-Inguinal hernia
-Prostate cancer treated with chemotherapy, 2015
-Fatty liver new
-Bronchiectasis/COPD
-Acute postop blood loss/Anemia (stable without blood transfusion)
-Acute postop atelectasis
-Acute postop hypovolemia with subsequent hypervolemia
-Acute postop DEANDRE
-Acute postop hyperkalemia/magnesemia
-Acute postop delirium, resolved on pod#4-5
-Acute postop NSVT
Discussed patient care with: Cardiology, Nursing, Respiratory Therapy, Pharmacy and Care Team
Subjective
Procedure
-S/p Standard sternotomy with aortic and right atrial cannulation/ CABG x 4 (In situ PAYAN to LAD, Ao to RSVG to Diag seq to OM2/LPL, Ao to RSVG to RPDA)/Surgical aortic valve replacement [23mm biological valve], by Dr. Martínez, 12/27/23,
-
Date of Service: January 01, 2024
No major issues overnight. C/O cough. Postop delirium has resolved
Objective Data
-
PT 15.0 Sec (11.4-14.6) H 12/28/23 02:41
INR 1.20 12/28/23 02:41
APTT 33.3 Sec (23.4-35.0) 12/27/23 12:39
Vital Signs
Vital Signs
Temp Pulse Resp BP Pulse Ox
98.6 F 65 20 99/54 99
12/31/23 23:00 01/01/24 00:00 12/31/23 23:00 12/31/23 23:00 01/01/24 00:00
CT Intake/Output/Weight
12/31/23 12/31/23 01/01/24
06:59 18:59 06:59
Intake Total 120 / 600 120 / 180 60 / 180
Output Total 615 / 1650 160 / 260 100 / 260
Balance -495 / -1050 -40 / -80 -40 / -80
SaO2: 99 (RA)
Physical Exam
-
General: Awake, Oriented and AOx3
Cardiovascular: Regular rate & rhythm, No Murmurs, No Rub and No Gallop
Respiratory: Decreased Breath Sounds (at bases, some expiratory wheezing)
Sternum: Stable
Incision: Clean, Dry, Intact and Dressing Intact
Extremities: No Edema
Data Reviewed
-
Lab Results: Results Reviewed
Medications: Active Meds Reviewed
Chest X-Ray: Report Reviewed and Image Reviewed
ECG: Report Reviewed and Image Reviewed
[2024-01-01 03:58] LABS: Hematocrit 21.9 % (39.0-52.0); Mean Platelet Volume 10.7 fL (7.4-10.4); Platelet Count 171 10^3/uL (130-400); Red Blood Cell Count 2.33 10^6/uL (4.70-6.10); Red Cell Dist. Width 15.9 % (11.5-14.5)
[2024-01-01 04:08] LABS: Blood Urea Nitrogen 39 mg/dl (9-20); Calcium 8.4 mg/dl (8.4-10.2); Carbon Dioxide 23 mmol/L (22-30); Chloride 105 mmol/L (98-107); Estimated Creatinine Clearance 39 ml/min; Glucose 113 mg/dl (70-99); Magnesium 2.6 mg/dl (1.6-2.3); Sodium 140 mmol/L (135-145); eGFR 38.05
[2024-01-01] MEDS: XOPENEX 1.25 MG INHALANT SOLUTION INH ×4 (05:18→20:15)
--- NOTE | 2024-01-01 06:06 | PTCARENOTE ---
Patient reassessed. Remains SR on the monitor. AM hygiene care provided. AM labs obtained. Patient attempted to walk to bathroom with assistx2 and RW, but reported dizziness lightheadedness. Used BSC unable to void or have BM. Patient bladder
scanned for 324 will continue to monitor. Xopenex tx for SOB.
[2024-01-01] MEDS: TYLENOL 1000 MG PO ×2 (06:32→21:55)
[2024-01-01] MEDS: CORDARONE 103 MG IV (07:15)
[2024-01-01] MEDS: VITAMIN C 1000 MG PO (07:40)
[2024-01-01] MEDS: PROTONIX 40 MG PO (07:40)
[2024-01-01] MEDS: LOW STRENGTH ASPIRIN 81 MG PO (07:40)
[2024-01-01] MEDS: CLARITIN 10 MG PO (07:41)
[2024-01-01] MEDS: PLAVIX 75 MG PO (07:41)
[2024-01-01] MEDS: FLOMAX 0.4 MG PO (07:41)
[2024-01-01] MEDS: SENOKOT-S 1 TABLET PO (07:41)
[2024-01-01] MEDS: LOPRESSOR 25 MG PO ×2 (07:41→21:56)
[2024-01-01] MEDS: THERAGRAN 1 TABLET PO (07:41)
[2024-01-01] MEDS: SPIRIVA RESPIMAT 2.5 MCG 2 PUFF INH (07:52)
[2024-01-01] MEDS: PULMICORT 0.25 MG INH ×2 (07:52→20:15)
[2024-01-01] MEDS: MUCINEX 1200 MG PO ×2 (07:53→21:55)
[2024-01-01] MEDS: OSCAL CAL 500 500 MG PO (07:53)
--- NOTE | 2024-01-01 09:04 | PTCARENOTE ---
Assumed patient care at 0700. Patient is AOx4, confused and forgetful at times, but no issues at time of present assessment. follows commands appropriately, moves all extremities. Lung sounds have rhonchi throughout the bilateral upper lobes, bases
are diminishes saO2 is 98% on 3LNC. Respiratory therapist provided treatment. Heart sounds have a regular rate and rhythm. Patient has normal palpable pulses, +1 BLE, trace BUE, and +2 scrotal edema. Patient going in and out of irregular rapid
rhythm, complaining of sharp upper chest pain, PA made aware, amio bolus given. Patient has active BS and is voiding clear yellow in small amounts. Patient with episodes of stress incontinence. Patient has a R IJ cordis receiving KVO, and R Hand 18G
PIV.
--- NOTE | 2024-01-01 09:12 | W.PN.CARDCBS ---
Today's Communication / Plan
-
Amiodarone and metoprolol as you are
Initiate oral anticoagulation when deemed safe as per CT surgery
Agree with 1 unit of transfusion
Agree with diuresis
Will follow closely with you
Postoperative day 5
Impression / Plan
-
PCP:
[employer]: Dr. Parker
Impression:
Postoperative delirium
Postoperative atrial fibrillation
Postoperative anemia
Renal insufficiency
CAD
s/p JOHNY to RCA 02/2009
NSTEMI and JOHNY to Diag-1 and OM-1 05/2010
POD #5 s/p CABG with PAYAN to LAD, SVG sequential to Diab and OM-2/LPL, SVG to RPDA 12/27/23
s/p tissue AVR for moderate to severe , POD #5
Mod MR by echo 11/04/23
CLL
Prostate cancer
h/o sinus bradycardia and 6 second pause leading to syncope 2016
h/o GERD and Villareal's
History of postoperative atrial fibrillation
Echo 11/04/2023: EF 60 to 65%, moderate MR, moderate AAS mean gradient 29 mmHg, LIZA 0.8 cm sq, mild aortic insufficiency
Plan:
-S/p Standard sternotomy with aortic and right atrial cannulation/ CABG x 4 (In situ PAYAN to LAD, Ao to RSVG to Diag seq to OM2/LPL, Ao to RSVG to RPDA)/Surgical aortic valve replacement [23mm biological valve], by Dr. Martínez, 12/27/23, pod#5
-Wean mid flow O2 as able
-Pulmonary toilet and we reviewed use of acepella and incentive spirometry. I do agree with chest x-ray given that he still has some rales and wheezing on bilateral lung exam.
-Continue IV diuresis
-Off pressors and inotropes. Lopressor resumed.
-Given his postoperative atrial fibrillation I agree with amiodarone and Lopressor as you are. His sinus rates post surgery were in the 80s to 90s despite a prior history of sinus pause and we continue the AV dawn agents as directed. I would
recommend initiating oral anticoagulation for thromboembolic prophylaxis when deemed safe from a surgical perspective. It is noted that he is requiring a transfusion today of 1 unit for postoperative anemia and I will defer to surgery in terms of
timing of initiation of oral anticoagulation.
-Continue lipid therapy for goal LDL less than 55 mg/dL. Currently on rosuvastatin and ezetimibe.
-Continue supportive postop care
Progress Note - [employer]
Subjective
Date of Service: January 01, 2024
Total Time Spent with Patient (in minutes): Went into atrial fibrillation this morning
Objective
Labs:
01/01/24 03:12
01/01/24 03:12
Labs
Hgb 7.0 g/dL (13.0-18.0) L 01/01/24 03:12
Hct 21.9 % (39.0-52.0) L 01/01/24 03:12
Plt Count 171 10^3/uL (130-400) D 01/01/24 03:12
PT 15.0 Sec (11.4-14.6) H 12/28/23 02:41
INR 1.20 12/28/23 02:41
APTT 33.3 Sec (23.4-35.0) 12/27/23 12:39
Sodium 140 mmol/L (135-145) 01/01/24 03:12
Potassium 4.0 mmol/L (3.5-5.1) 01/01/24 03:12
BUN 39 mg/dl (9-20) H 01/01/24 03:12
Creatinine 1.8 mg/dL (0.7-1.3) H 01/01/24 03:12
Glucose 113 mg/dl (70-99) H 01/01/24 03:12
Vital Signs and I&O:
Vital Signs
Temp Pulse Resp BP Pulse Ox
97.6 F 112 18 130/77 96
01/01/24 07:38 01/01/24 07:54 01/01/24 07:54 01/01/24 07:38 01/01/24 07:54
Vital Signs
Temp Pulse Resp BP Pulse Ox
97.6 F 112 18 130/77 96
01/01/24 07:38 01/01/24 07:54 01/01/24 07:54 01/01/24 07:38 01/01/24 07:54
Intake & Output
12/30/23 12/31/23 01/01/24 01/02/24
06:59 06:59 06:59 06:59
Intake Total 1145.7 / 1155.7 590 / 600 240 / 250
Output Total 1810 / 1810 1620 / 1650 260 / 360 100 / 100
Balance -664.3 / -654.3 -1030 / -1050 -20 / -110 -90 / -90
Physical Exam
Physical Exam
�
����Physical Exam
�
���������������������General:��no apparent distress, not acutely ill
�
���������������������������Neck:��supple. no meningeal signs. normal psoterior pharynx
������������������������
���������������������������Heart:�Cor irregularly irregular, no murmur. equal radial pulses.
�
��������������������������Lungs: ��no acute respiratory distress. clear bilaterally
�
����������������������Abdomen:�normal bowel sounds. not tender. no CVAT
�
��������������������������Neuro:��alert and oriented. no focal neurological deficits
�
������������������������������Skin: ��no rash
�
�����������������������Psychiatric:�well kept. interactive and cooperative
�
�����������������������Extremities:��no edema. no calf tenderness. negative homans. good distal pulses
�
�
�
��
�
[2024-01-01] MEDS: CORDARONE 518 MG IV (10:05)
[2024-01-01] MEDS: NSS 500 IV (10:05)
--- NOTE | 2024-01-01 11:27 | PTCARENOTE ---
Patient OOB in chair, much better tolerated ambulation today than yesterday. States feeling lightheaded when initially standing, but is able to transition from bed to chair with assistance x2. Using I.S often, reaching levels of 1250cc. Vital signs
being closley monitored. On amiodarone gtt, HR 89. Denies pain.
[2024-01-01] MEDS: TYLENOL PO (14:20)
[2024-01-01] MEDS: FERRLECIT 110 MG IV (16:46)
--- NOTE | 2024-01-01 17:11 | PTCARENOTE ---
Patient OOB in chair, reports feeling comfortable and denies pain. Ambulated with assistance x1 in room with OT, well tolerated, only reported slight lightheadedness. 1uPRBC infused, no complications. New PIV placed. Patient OOB to bedside commode
for multiple bowel movements today. Lung sounds improved since yesterday. Vital signs stable. Remains on 3LNC.
[2024-01-01] MEDS: LEXAPRO 5 MG PO (18:23)
[2024-01-01] MEDS: CRESTOR 40 MG PO (18:23)
--- NOTE | 2024-01-01 20:00 | PTCARENOTE ---
PT AAOx3 w/ VSS NS on 3L NC. GI normoactive BS, WDL, all surgical sights CDI, RIJ & IV wnl. see worklist for detailed assessment.
[2024-01-01] MEDS: MELATONIN 5 MG PO (21:55)
[2024-01-01] MEDS: ZETIA 10 MG PO (21:55)
[2024-01-01] MEDS: SENOKOT-S PO (21:55)
[2024-01-02] VITALS (12 sets, daily range): BP systolic 105–140; BP diastolic 49–74; PULSE 71–76; O2SAT 98; BMI 33.2
--- NOTE | 2024-01-02 | PTCARENOTE ---
no change from previous assessment
--- NOTE | 2024-01-02 04:00 | PTCARENOTE ---
no change from previous assessment
--- NOTE | 2024-01-02 04:03 | W.PN.CT ---
Today's Communication / Plan
-
Plan:
-No major issues overnight. Hemodynamically and neurologically intact. Mental status back to baseline x 3 days. Had postop delirium
-A-fib with RVR yesterday x 4hrs, responded to Amiodarone bolus x 1 and gtt. Currently on Amiodarone gtt, PO Amiodarone on hold
-D/C cordis after amiodarone gtt
-Will likely require DOAC if further a-fib
-Tolerating increased Lopressor @ 25 mg po bid
-Avoid narcotics if possible
-Received 1u PRBC yesterday for h/h of 7.0/21.9, up to 8.5/24.4 today
-DEANDRE improving, 1.5 down from 1.8 yesterday, lives around 1.1-1.3
-Cont. current meds (ASA, Plavix, Zetia, Amiodarone, BB, Flomax, Lexapro, Spiriva, Pulmicort, Xopenex)
-Encourage use of IS
-Wean off O2 as tolerated
-OOB into chair/Ambulate
-PT/OT following and recommend acute rehab, Physiatry to evaluate for Freedman
-Freedman likely tomorrow
Assessment / Plan
-
Assessment:
-S/p Standard sternotomy with aortic and right atrial cannulation/ CABG x 4 (In situ PAYAN to LAD, Ao to RSVG to Diag seq to OM2/LPL, Ao to RSVG to RPDA)/Surgical aortic valve replacement [23mm biological valve], by Dr. Martínez, 12/27/23, pod#6
-Multivessel coronary disease
-Hx NSTEMI S/P PCI with multiple stents (JOHNY to D1 and OM1, 05/2010), JOHNY to RCA, 02/2009
-Recent Abnormal stress test
-Moderately-severe aortic valve stenosis
-Mild TR
-Hyperlipidemia
-Class 1 obesity (BMI 31.3)
-Prediabetes (hgb A1C 5.7)
-Hypertension
-Villareal's esophagus/GERD/Hiatal hernia
-History of CLL
-Vestibular neuritis
-Colonic Extavia
-Peptic ulcer disease
-Diverticulosis
-Thyroid nodules
-DJD/OA
-Neuropathy
-History of vertebral fracture
-Inguinal hernia
-Prostate cancer treated with chemotherapy, 2015
-Fatty liver new
-Bronchiectasis/COPD
-Acute postop blood loss/Anemia (stable without blood transfusion)
-Acute postop atelectasis/pleural effusion
-Acute postop pulmonary insufficiency
-Acute postop hypovolemia with subsequent hypervolemia
-Acute postop DEANDRE
-Acute postop hyperkalemia/magnesemia
-Acute postop delirium, resolved on pod#4-5
-Acute postop NSVT
-Acute postop a-fib with RVR on POD#5
Discussed patient care with: Cardiology, Nursing, Respiratory Therapy, Pharmacy and Care Team
Subjective
Procedure
-S/p Standard sternotomy with aortic and right atrial cannulation/ CABG x 4 (In situ PAYAN to LAD, Ao to RSVG to Diag seq to OM2/LPL, Ao to RSVG to RPDA)/Surgical aortic valve replacement [23mm biological valve], by Dr. Martínez, 12/27/23,
-
Date of Service: January 02, 2024
Pt c/o cough, otherwise feels well
Objective Data
-
PT 15.0 Sec (11.4-14.6) H 12/28/23 02:41
INR 1.20 12/28/23 02:41
APTT 33.3 Sec (23.4-35.0) 12/27/23 12:39
Vital Signs
Vital Signs
Temp Pulse Resp BP Pulse Ox
98 F 60 20 105/63 100
01/01/24 16:23 01/02/24 02:00 01/01/24 20:19 01/02/24 01:40 01/02/24 02:00
CT Intake/Output/Weight
01/01/24 01/01/24 01/02/24
06:59 18:59 06:59
Intake Total 120 / 250 1303.2 / 1303.2
Output Total 100 / 360 225 / 325 100 / 325
Balance 20 / -110 1078.2 / 978.2 -100 / 978.2
SaO2: 100 (2L)
Physical Exam
-
General: Awake, Oriented and AOx3
Cardiovascular: Regular rate & rhythm, No Murmurs and No Gallop
Respiratory: Rales and Decreased Breath Sounds
Sternum: Stable
Incision: Clean, Dry, Intact and Dressing Intact
Extremities: Edema +1
Data Reviewed
-
Lab Results: Results Reviewed
Medications: Active Meds Reviewed
Chest X-Ray: Report Reviewed and Image Reviewed
ECG: Report Reviewed and Image Reviewed
[2024-01-02 05:25] LABS: Ionized Calcium 1.21 mMOL/L (1.15-1.33)
[2024-01-02 05:49] LABS: Hematocrit 24.7 % (39.0-52.0); Hemoglobin 8.2 g/dL (13.0-18.0); Mean Corp Hgb Conc. 33.2 g/dL (33.0-37.0); Mean Corpuscular Hgb 30.6 pg (27.0-31.0); Mean Corpuscular Volume 92.2 fL (80.0-94.0); Mean Platelet Volume 10.6 fL (7.4-10.4); Platelet Count 212 10^3/uL (130-400); Red Blood Cell Count 2.68 10^6/uL (4.70-6.10); Red Cell Dist. Width 15.9 % (11.5-14.5); White Blood Cell Count 11.5 10^3/uL (4.8-10.8)
[2024-01-02 06:15] LABS: Blood Urea Nitrogen 38 mg/dl (9-20); Calcium 8.4 mg/dl (8.4-10.2); Carbon Dioxide 24 mmol/L (22-30); Chloride 105 mmol/L (98-107); Estimated Creatinine Clearance 47 ml/min; Glucose 125 mg/dl (70-99); Magnesium 2.5 mg/dl (1.6-2.3); Sodium 137 mmol/L (135-145); eGFR 47.36
[2024-01-02] MEDS: TYLENOL PO ×2 (06:40→14:22)
[2024-01-02] MEDS: XOPENEX 1.25 MG INHALANT SOLUTION INH ×3 (07:15→19:06)
[2024-01-02] MEDS: SPIRIVA RESPIMAT 2.5 MCG 2 PUFF INH (07:15)
[2024-01-02] MEDS: PULMICORT 0.25 MG INH ×2 (07:15→19:07)
[2024-01-02] MEDS: FLOMAX 0.4 MG PO (08:35)
[2024-01-02] MEDS: LOW STRENGTH ASPIRIN 81 MG PO (08:35)
[2024-01-02] MEDS: THERAGRAN 1 TABLET PO (08:35)
[2024-01-02] MEDS: VITAMIN C 1000 MG PO (08:35)
[2024-01-02] MEDS: CLARITIN 10 MG PO (08:35)
[2024-01-02] MEDS: PROTONIX 40 MG PO (08:35)
[2024-01-02] MEDS: PLAVIX 75 MG PO (08:35)
[2024-01-02] MEDS: SENOKOT-S 1 TABLET PO (08:35)
[2024-01-02] MEDS: LOPRESSOR 25 MG PO ×2 (08:35→19:22)
[2024-01-02] MEDS: OSCAL CAL 500 500 MG PO (08:35)
[2024-01-02] MEDS: MUCINEX 1200 MG PO (08:35)
--- NOTE | 2024-01-02 08:56 | PTCARENOTE ---
assumed care of pt from previous shift RN, sinus rhythm on tele, VSS, + peripheral pulses, +1 edema to bilateral lower extremities. Lungs diminished, loose productive cough noted, received pt on 3L NC, weaned to 2L NC. +bs, tolerating PO intake,
voids spontaneously. Right IJ cordis redressed, PIV flushes easily. Post op sites w glue intact. Pt denies pain. Assisted w AM care. plan of care reviewed w the pt and questions encouraged.
[2024-01-02] MEDS: LASIX 40 MG IV (09:37)
[2024-01-02] MEDS: KCL 10 MEQ PO (09:37)
--- NOTE | 2024-01-02 11:48 | W.PN.CARDCBS ---
Today's Communication / Plan
-
Remains in sinus rhythm. Start p.o. amiodarone and metoprolol.
Remains on aspirin and Plavix. Will discuss with CT surgery regarding full anticoagulation.
Hemoglobin up to 8.2
Impression / Plan
-
PCP:
Primary [employer]: Dr. Parker
Impression:
Postoperative delirium
Postoperative atrial fibrillation
Postoperative anemia
Renal insufficiency
CAD
s/p JOHNY to RCA 02/2009
NSTEMI and JOHNY to Diag-1 and OM-1 05/2010
POD #5 s/p CABG with PAYAN to LAD, SVG sequential to Diab and OM-2/LPL, SVG to RPDA 12/27/23
s/p tissue AVR for moderate to severe , POD #5
Mod MR by echo 11/04/23
CLL
Prostate cancer
h/o sinus bradycardia and 6 second pause leading to syncope 2016
h/o GERD and Villareal's
History of postoperative atrial fibrillation
Echo 11/04/2023: EF 60 to 65%, moderate MR, moderate AAS mean gradient 29 mmHg, LIZA 0.8 cm sq, mild aortic insufficiency
Plan:
-S/p Standard sternotomy with aortic and right atrial cannulation/ CABG x 4 (In situ PAYAN to LAD, Ao to RSVG to Diag seq to OM2/LPL, Ao to RSVG to RPDA)/Surgical aortic valve replacement [23mm biological valve], by Dr. Martínez, 12/27/23, pod#5
-Remains in sinus rhythm today. Continue amiodarone. When drip stops would start oral amiodarone 200 mg p.o. 3 times daily for now. Continue low-dose beta-eli.
-Will discuss with CT surgery regarding full anticoagulation or aspirin/Plavix. Would prefer full anticoagulation with A-fib
-Continue lipid therapy for goal LDL less than 55 mg/dL. Currently on rosuvastatin and ezetimibe.
-Continue supportive postop care
Progress Note - [employer]
Subjective
Date of Service: January 02, 2024
Overall feels well. No further A-fib today. Remains on IV amiodarone.
Objective
Labs:
01/02/24 05:18
01/02/24 05:18
Labs
Hgb 8.2 g/dL (13.0-18.0) L 01/02/24 05:18
Hct 24.7 % (39.0-52.0) L 01/02/24 05:18
Plt Count 212 10^3/uL (130-400) D 01/02/24 05:18
PT 15.0 Sec (11.4-14.6) H 12/28/23 02:41
INR 1.20 12/28/23 02:41
APTT 33.3 Sec (23.4-35.0) 12/27/23 12:39
Sodium 137 mmol/L (135-145) 01/02/24 05:18
Potassium 4.0 mmol/L (3.5-5.1) 01/02/24 05:18
BUN 38 mg/dl (9-20) H 01/02/24 05:18
Creatinine 1.5 mg/dL (0.7-1.3) H 01/02/24 05:18
Glucose 125 mg/dl (70-99) H 01/02/24 05:18
Vital Signs and I&O:
Vital Signs
Temp Pulse Resp BP Pulse Ox
98 F 70 22 124/56 98
01/02/24 08:00 01/02/24 09:00 01/02/24 08:00 01/02/24 09:00 01/02/24 09:11
Vital Signs
Temp Pulse Resp BP Pulse Ox
98 F 70 22 124/56 98
01/02/24 08:00 01/02/24 09:00 01/02/24 08:00 01/02/24 09:00 01/02/24 09:11
Intake & Output
12/31/23 01/01/24 01/02/24 01/03/24
06:59 06:59 06:59 06:59
Intake Total 590 / 600 240 / 250 1303.2 / 1303.2 126.7 / 126.7
Output Total 1620 / 1650 260 / 360 325 / 325 200 / 200
Balance -1030 / -1050 -20 / -110 978.2 / 978.2 -73.3 / -73.3
Physical Exam
Physical Exam
GEN: No distress, awake, Ox3
HEENT: supple, anicteric, mmm
LUNGS: ascatt rhonchi
CV: Reg, S1/S2, 1/6 syst LSB, no gallop
ABD: soft, BS+, NT/ND
EXT: No edema
NEURO: Gross non-focal
SKIN: sternotomy
--- NOTE | 2024-01-02 13:21 | CON.MD ---
Consultation - Medical
-
Referring Provider:�Dr. Alfredo Martínez
Chief Complaint:�CABG
�
History of Present Illness:�78-year-old male with PMH (as below) presented to [facility] on 12/27/2023 for elective CABG x 4 and biological aortic valve replacement by Dr. Martínez. Postoperatively required transfusion of 1 unit of PRBC,
developed A-fib with RVR and received amiodarone. Also developed postop delirium which resolved. Plan to start anticoagulation when deemed safe per CT surgery. Has baseline shortness of breath concern from chemo therapy induced lung damage. This
limits his ability to exercise. This and his cardiac concerns and surgery have limited his ability to ambulate.
�
Past Medical History:�Hypotension, sinusitis, kidney cyst, hyperlipidemia, CAD, non-ST elevation [place], CAD, colonic ectasia, peptic ulcer disease, thyroid nodule, vertebral fracture, arthritis, adenomatous colon polyps, left inguinal hernia, prostate
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
hypercholesterolemia, chronic lymphocytic leukemia, obesity, moderate aortic stenosis, neuropathy, COPD
Procedure History:�3 drug-eluting stents 2012, removal of calcified submandibular vessel, right trigger finger, carotid endarterectomy, epididymitis surgery, deviated septum surgery, cardiac cath 2012, heart cath with 2 stents 2012 and 3 stents
2014, left knee repair, tonsillectomy, trigger thumb release, right rotator cuff, hemorrhoidal surgery, carpal tunnel surgery bilaterally, endoscopy
Family History:�Father age 48 ([place]) mother with stroke, sibling�ulcerative colitis, systemic lupus erythematosus
�
Social History:�
Functional Level Premorbidly:�Independent with all activities�
Functional Level Currently:�Min assist transfer, min assist ambulating 15 feet x 2 with rolling walker. Max assist toileting. Dependent lower extremity self-care.
�
Tobacco:�Former
Alcohol:�3-4 drinks a week
Drug use:�Denies�
�
Lives with:�Spouse
24-hour assistance available:�Yes
Number of floors:�2
# steps to enter:�0
# steps to second floor: Full flight
Potential First floor set up:�Half bath on the first floor
Driving:�Yes
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
�
Allergies:�
Allergy/AdvReac Type Severity Reaction Status Date / Time
atorvastatin calcium Allergy muscle Verified 11/11/23 09:50
[From Lipitor] aches
bupivacaine Allergy Anaphylaxis Verified 12/26/23 13:55
celecoxib [From Celebrex] Allergy duodenal Verified 11/11/23 09:50
ulcers
codeine [Codeine] Allergy DIZZINESS, Verified 11/11/23 09:50
CHILLS
fentanyl [Fentanyl] Allergy Anaphylaxis Verified 11/11/23 09:50
lidocaine Allergy Anaphylaxis Verified 11/11/23 09:50
prilocaine Allergy Anaphylaxis Verified 12/26/23 13:55
procaine [Procaine] Allergy Anaphylaxis Verified 11/11/23 09:50
�
Review of Systems:�
Constitutional: (x) abNormal _fatigue
Eye: (x) Normal _
Ear/Nose/Throat: (x) Normal _
Respiratory: (x) Normal _
Cardiovascular: (x) abNormal _chest pain
Gastrointestinal: (x) Normal _
Genitourinary: (x) Normal _
Musculoskeletal: (x) Normal _
Integumentary: (x) Normal _
Neurologic: (x) Normal _
Psychiatric: (x) Normal _
Endocrine: (x) Normal _
Hematologic/Lymphatic: (x) Normal _
Allergic/Immunologic: (x) Normal _
�
Medications:�
Active Current Visit Medication List
Category Date Time Status
0.9% Sodium Chloride 500 ml [Nss] 500 ml Med 12/27/23 12:11 Active
IV CORDIS
Acetaminophen [Tylenol/Feverall] Med 12/27/23 12:11 Active
650 mg RECTAL Q4HPRN PRN
Acetaminophen [Tylenol] Med 12/27/23 14:00 Active
1,000 mg PO TID@0600,1400,2200
Acetaminophen [Tylenol] Med 12/27/23 12:11 Active
650 mg PO Q4HPRN PRN
Amiodarone [Cordarone] 900 mg Med 01/01/24 08:15 Active
DEXTROSE 5% PVC-free BAG [D5W PVC-free BAG] 500 ml
IV PER PROTOCOL
Amiodarone [Pacerone] Med 12/27/23 16:00 Hold
200 mg PO TID
Ascorbic Acid [Vitamin C] Med 12/31/23 09:00 Active
1,000 mg PO DAILY
Aspirin Med 12/28/23 08:00 Active
300 mg RECTAL DAILYPRN PRN
Aspirin Chewable [Low Strength Aspirin] Med 12/28/23 08:00 Active
81 mg PO DAILY
Bisacodyl [Dulcolax] Med 12/27/23 12:11 Active
10 mg RECTAL DAILYPRN PRN
Budesonide [Pulmicort] Med 12/29/23 20:00 Active
0.25 mg INH R BID
Calcium Carbonate [Oscal Omero 500] Med 12/28/23 08:00 Active
500 mg PO DAILY
Clopidogrel Bisulfate [Plavix] Med 12/28/23 08:00 Active
75 mg PO DAILY
Docusate W/Senna [Senokot-S] Med 12/27/23 20:00 Active
1 tablet PO Q12
Escitalopram Oxalate [Lexapro] Med 12/27/23 18:00 Active
5 mg PO QPM
Ezetimibe [Zetia] Med 12/27/23 22:00 Active
10 mg PO HS
Famotidine [Pepcid] Med 12/27/23 12:11 Active
20 mg PO DAILY PRN
Ferric Gluconate [Ferrlecit] 125 mg Med 01/02/24 14:00 Active
0.9% Sodium Chloride 100 ml [Nss] 100 ml
IV ONCE@1400
Flush (0.9% Sodium Chloride) [Flush (Nss)] Med 12/27/23 13:00 Active
See Dose Instructions IV PER PROTOCOL
Guaifenesin [Mucinex] Med 12/29/23 08:00 Active
1,200 mg PO Q12
Levalbuterol [Xopenex 1.25 mg Inhalant Solution] Med 12/31/23 08:00 Active
1.25 mg INH R TID
Loratadine [Claritin] Med 12/28/23 08:00 Active
10 mg PO DAILY
Magnesium Hydroxide [Milk of Magnesia] Med 12/27/23 12:11 Active
30 ml PO BIDPRN PRN
Magnesium Oxide Med 12/28/23 08:00 Hold
500 mg PO BID
Melatonin Med 12/30/23 22:00 Active
5 mg PO HS
Metoprolol [Lopressor] Med 12/31/23 20:00 Active
25 mg PO Q12
Multivitamin [Theragran] Med 12/28/23 08:00 Active
1 tablet PO DAILY
Ondansetron Injectable [Zofran] Med 12/27/23 12:11 Active
4 mg IV Q8HPRN PRN
Pantoprazole [Protonix] Med 12/28/23 08:00 Active
40 mg PO DAILY
Quetiapine Fumarate [Seroquel] Med 12/31/23 22:00 Hold
25 mg PO HS
Rosuvastatin Calcium [Crestor] Med 12/28/23 18:00 Active
40 mg PO QPM
Tamsulosin [Flomax] Med 12/28/23 08:00 Active
0.4 mg PO DAILY
Tiotropium [place] 2.5 Mcg [Spiriva Respimat 2.5 Mcg] Med 12/28/23 08:00 Active
2 puff INH R DAILY
�
Vitals:�
Temp Pulse Resp BP Pulse Ox
98.1 F 70 22 111/63 96
01/02/24 12:00 01/02/24 12:29 01/02/24 12:00 01/02/24 12:29 01/02/24 13:33
Height 5 ft 9 in
Actual Weight 101.8 kg
Body Mass Index (BMI) 33.2
�
Physical Exam:�
General Appearance/Observation: Well-developed, well-nourished male in no apparent distress.�
Pain/Comfort Assessment: mild chest pain
Mood/Affect: Appropriate�
�
Integumentary/Operative Site:�Sternal incision healing. Bilateral inner knee incisions, C/D/I.
�
Eyes: Conjunctiva/Lids: normal���� Pupils: pupils equal round and reactive to light and Accommodation�
Ears/Nose/Throat: oral mucosa moist,� throat clear.������������ Lips/Teeth/Gums: Dental work upper teeth
Cardiovascular: Heart: regular, no murmur�
Pulses: dorsalis pedis 2+ bilaterally�
Respiratory: Respiratory Effort/Chest Expansion: Does have some shortness of breath limiting his speaking������� Auscultation: Clear to auscultation bilaterally�
Gastrointestinal: abdomen not tender, no distension, normal abdominal bowel sounds
Genitourinary: No Orozco�
Extremities:�Edema: None�Cyanosis: None�Trophic�changes: None
Neurology Exam:
Orientation: Alert, Oriented to self, Time, Place�
Memory: Intact
Repetition: Intact
Comprehension: Intact
Two step command: Intact
Cranial Nerves:
�� CNII:�Pupillary light reflex: Intact���
�� CN VII:�Facial movement: Symmetric
�� CN VIII:�Hearing: Normal
�� CN IX/X:�Speech & swallow: Normal,�Position of Uvula: Midline
�� CN XI:�Shoulder shrug: Symmetric
�� CN XII:�Tongue protrusion: Midline
Sensory:
�� Light touch: Intact in bilateral upper and lower extremities
�
Cerebellar: Dysmetria/Ataxia: Deferred
Musculoskeletal: Motor: (Manual muscle scale 0-5)�
Muscle SA EF WE EE FF FA HF KE DF EHL PF
Right� >3 >3 5 >3 5 4 3 5 5 5
Left >3 >3 5 >3 5 4 3 5 5 5
�
Tone: Normal in all extremities�
Range of Motion: Passively within normal limits in all extremities�in the legs, elbows and wrists
�
Lab Results
Laboratory Data
01/02/24 05:18
01/02/24 05:18
PT 15.0 Sec (11.4-14.6) H 12/28/23 02:41
INR 1.20 12/28/23 02:41
APTT 33.3 Sec (23.4-35.0) 12/27/23 12:39
Total Bilirubin 0.6 mg/dl (0.2-1.3) 12/22/23 12:21
Direct Bilirubin 0.1 mg/dl (0.0-0.4) 12/22/23 12:21
AST 41 U/L (17-59) 12/22/23 12:21
ALT 40 U/L (0-50) 12/22/23 12:21
Alkaline Phosphatase 49 U/L (38-126) 12/22/23 12:21
Total Protein 6.4 g/dl (6.3-8.2) 12/22/23 12:21
Albumin 4.0 g/dl (3.5-5.0) 12/22/23 12:21
�
Diagnostic Results:�as per HPI�
�
Assessment
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
CLL, obesity, moderate aortic stenosis, chemotherapy-induced neuropathy, chemotherapy-induced COPD) s/p 12/27/2023 for elective CABG x 4 and biological aortic valve replacement with postoperative anemia and A-fib with RVR resulting in ADL and
ambulatory dysfunction.
Plan�
PM&R�PT/OT to increase independence with ADLs, improve balance, coordination, endurance, strength, mobility, community reintegration, decreased burden of care on others and family education.�
CAD S/P CABG x 4 12/27/2023: Sternal precautions.� Aspirin, statin, Plavix, BP control.� Monitor incision, pain control.��
Aortic stenosis: Status post biologic valve replacement
Chemotherapy-induced peripheral polyneuropathy: Patient at risk of falling with neuropathy.�
Atrial fibrillation with RVR:�Cardiology to determine need for anticoagulation and rate control initially with amiodarone now on metoprolol.��
HTN: Has history of blood pressure in the 100 range. Has had hypertension at times. On metoprolol for rate control. Monitor closely�
HLD: Statin�
COPD: Chemotherapy-induced. Budesonide, levalbuterol, tiotropium. Follows with pulmonology. Has not had pulmonary rehab in the past. Is limited daily with activities because of this. Also has significant coughing episodes chronically,
guaifenesin 1200 mg every 12 hours. Loratadine.
Postoperative anemia: Required 1 unit of PRBCs, monitor.�
Psych: Psychology consult.� Monitor mood, adjust escitalopram as needed.� Melatonin for sleep. Did require Seroquel with some delirium, no longer necessary.
Skin: monitor surgical incision and bilateral inner knee venous graft site incisions
Pain: acetaminophen as needed.�
Bowel: Colace and Senna, PRN bisacodyl.�
Bladder: Flomax. Time void, PVRs, PRN straight cath.�
Peptic ulcer disease/GERD/Villareal's esophagitis: Pantoprazole, Pepcid as necessary
DVT Prophylaxis: Mechanical, consider chemoprophylaxis
Pulmonary: Incentive spirometry�
Obesity: Continue to education counselor patient about diet adjustments to control obesity. Body habitus and increased force to move body and extremities causes further difficulty with functional tasks.�
Safety: Continue to reinforce assistance with all transfers.�
Code Status:� Full code
Dispo�(date/plan/equipment needs): Home with family care.� Social history reviewed.�
Functional and Medical Goals:�Modified Independent with ADL�s, ambulation, transfers�
Discharge Destination:�Acute inpatient rehabilitation
�
Summary of recommendations:
-�Discharge Destination: Acute inpatient rehabilitation
CAD S/P CABG x 4 12/27/2023: Sternal precautions.� Aspirin, statin, Plavix, BP control.� Monitor incision, pain control.��
Aortic stenosis: Status post biologic valve replacement
Atrial fibrillation with RVR:�Cardiology to determine need for anticoagulation and rate control initially with amiodarone now on metoprolol.��
COPD: Chemotherapy-induced. Budesonide, levalbuterol, tiotropium. Follows with pulmonology. Has not had pulmonary rehab in the past. Is limited daily with activities because of this. Also has significant coughing episodes chronically,
guaifenesin 1200 mg every 12 hours. Loratadine.
Bowel: Colace and Senna, PRN bisacodyl.�
Bladder: Flomax. Time void, PVRs, PRN straight cath.�
Peptic ulcer disease/GERD/Villareal's esophagitis: Pantoprazole, Pepcid as necessary
DVT Prophylaxis: Mechanical, consider chemoprophylaxis
Thank you for allowing me to care for your patient. Please contact me with any questions or concerns.
[2024-01-02] MEDS: NSS IV (14:21)
--- NOTE | 2024-01-02 14:40 | CM ---
Reviewed chart. Met with and Mrs. Molina to review discharge plans. She states she is feeling well and maybe able to go home soon. She states she ambulated in the hallway today. She states prior to admission she resides with her spouse,
granddaughter, her fiance. She states she resides in a two sot ry home with two steps to enter. She states she has a full flight of steps to get to bedroom. She has a bedside commode to use upstairs at night. He full bathroom is on the first floor.
She states prior to admission she was independent with ambulation and adls. She has a prescription plan and uses [facility]. She states her spouse will be home to assist in her care if needed. We reviewed a home visit by the
Cardiothoracic Transitional Care Nurse. She is agreeable to a home visit. Medical work-up in progress. The discharge plan is to return home with her family and a home visit by the Cardiothoracic Transitional Care Nurse when medically stable.
--- NOTE | 2024-01-02 14:49 | PTCARENOTE ---
working with pt ot/ doing very well on his feet. min assist to get up out of chair and off toilet. but steady on feet with walker once hes up.
--- NOTE | 2024-01-02 14:55 | CM ---
Reviewed chart. Met with and Mrs. Molina to review discharge plans. [facility] [place] [place]. Telephone call to [facility] liaison to confirm ability to
accept. [facility] at [place] approved him for admission. Will need to check on bed availability tomorrow. Currently no beds today. Prior to admission he resides with his spouse in a two story home without any steps to enter. He has a full
flight of steps to get to bedroom/full bathroom. He has a powder room on the first floor. Prior to admission he was independent with ambulation and adls. He has a nebulizer and respiratory vest at home. He does not have a prescription plan and
uses [facility]. Medical work-up in progress. The discharge plan is to go to [facility] at [place] when medically stable and bed available.
[2024-01-02] MEDS: FERRLECIT 110 MG IV (15:20)
[2024-01-02] MEDS: LEXAPRO 5 MG PO (18:13)
[2024-01-02] MEDS: CRESTOR 40 MG PO (18:13)
--- NOTE | 2024-01-02 18:24 | PTCARENOTE ---
intermittently requiring o2. currently 93% on 2L nc. will continue to monitor.
--- NOTE | 2024-01-02 19:00 | PTCARENOTE ---
report received from previous RN, walking rounds done, assumed care. pt in chair, AAOx4. pt denies any pain at this time. VSS. NSR on monitor, HR 80s-90s. POX 91% on 2LNC. IS encouraged. RIJ cordis intact w KVO infusing. all surgical sites stable.
see worklist for full assessment, VS, and interventions. pt resting comfortably.
[2024-01-02] MEDS: MUCINEX 600 MG PO (19:22)
[2024-01-02] MEDS: ROBITUSSIN DM 10 ML PO (19:22)
[2024-01-02] MEDS: SENOKOT-S PO (19:23)
[2024-01-02] MEDS: ZETIA 10 MG PO (22:43)
[2024-01-02] MEDS: MELATONIN 5 MG PO (22:43)
[2024-01-02] MEDS: PACERONE 200 MG PO (22:43)
[2024-01-02] MEDS: TYLENOL 1000 MG PO (22:43)
[2024-01-02] MEDS: ROBITUSSIN DM PO (23:32)
[2024-01-03 02:50] VITALS: BP 138/58
--- NOTE | 2024-01-03 03:00 | PTCARENOTE ---
pt VSS, no acute changes in assessment. NSR 60s. POX 93-95% on 2NLC. RIJ cordis maintained. all surgical sites stable. AM labs drawn and sent. pt resting between care.
[2024-01-03 03:03] LABS: Hematocrit 25.8 % (39.0-52.0); Hemoglobin 8.4 g/dL (13.0-18.0); Mean Corp Hgb Conc. 32.6 g/dL (33.0-37.0); Mean Corpuscular Hgb 28.9 pg (27.0-31.0); Mean Corpuscular Volume 88.7 fL (80.0-94.0); Platelet Count 275 10^3/uL (130-400); Red Blood Cell Count 2.91 10^6/uL (4.70-6.10); White Blood Cell Count 11.8 10^3/uL (4.8-10.8)
[2024-01-03 03:28] LABS: Blood Urea Nitrogen 32 mg/dl (9-20); Calcium 8.3 mg/dl (8.4-10.2); Carbon Dioxide 25 mmol/L (22-30); Chloride 105 mmol/L (98-107); Estimated Creatinine Clearance 48 ml/min; Glucose 109 mg/dl (70-99); Magnesium 2.3 mg/dl (1.6-2.3); Sodium 141 mmol/L (135-145); eGFR 47.36
[2024-01-03] MEDS: ROBITUSSIN DM PO (03:45)
--- NOTE | 2024-01-03 03:59 | W.PN.CT ---
Today's Communication / Plan
-
Plan:
-No major issues overnight. Hemodynamically and neurologically intact. Mental status back to baseline. Had postop delirium
-No further a-fib since the 4hrs on POD#5. On PO Amiodarone and Lopressor
-No DOAC unless further a-fib
-Avoid narcotics if possible given postop delirium
-H/h stable @ 8.4/25.8
-DEANDRE improving, 1.5, baseline 1.1-1.3
-Cont. current meds (ASA, Plavix, Zetia, Amiodarone, Lopressor, Flomax, Lexapro, Spiriva, Pulmicort, Xopenex, Guaifenesin)
-Encourage use of IS
-Wean off O2 as tolerated
-OOB into chair/Ambulate
-PT/OT and Physiatry following and recommend acute rehab
-Awaiting bed availability at [place]
Assessment / Plan
-
Assessment:
-S/p Standard sternotomy with aortic and right atrial cannulation/ CABG x 4 (In situ PAYAN to LAD, Ao to RSVG to Diag seq to OM2/LPL, Ao to RSVG to RPDA)/Surgical aortic valve replacement [23mm biological valve], by Dr. Martínez, 12/27/23, pod#7
-Multivessel coronary disease
-Hx NSTEMI S/P PCI with multiple stents (JOHNY to D1 and OM1, 05/2010), JOHNY to RCA, 02/2009
-Recent Abnormal stress test
-Moderately-severe aortic valve stenosis
-Mild TR
-Hyperlipidemia
-Class 1 obesity (BMI 31.3)
-Prediabetes (hgb A1C 5.7)
-Hypertension
-Villareal's esophagus/GERD/Hiatal hernia
-History of CLL
-Vestibular neuritis
-Colonic Extavia
-Peptic ulcer disease
-Diverticulosis
-Thyroid nodules
-DJD/OA
-Neuropathy
-History of vertebral fracture
-Inguinal hernia
-Prostate cancer treated with chemotherapy, 2015
-Fatty liver new
-Bronchiectasis/COPD/chronic cough
-Acute postop blood loss/Anemia (stable without blood transfusion)
-Acute postop atelectasis/pleural effusion
-Acute postop pulmonary insufficiency
-Acute postop hypovolemia with subsequent hypervolemia
-Acute postop DEANDRE
-Acute postop hyperkalemia/magnesemia
-Acute postop delirium, resolved on pod#4-5
-Acute postop NSVT
-Acute postop a-fib with RVR on POD#5
Discussed patient care with: Cardiology, Nursing, Respiratory Therapy, Pharmacy and Care Team
Subjective
Procedure
-S/p Standard sternotomy with aortic and right atrial cannulation/ CABG x 4 (In situ PAYAN to LAD, Ao to RSVG to Diag seq to OM2/LPL, Ao to RSVG to RPDA)/Surgical aortic valve replacement [23mm biological valve], by Dr. Martínez, 12/27/23,
-
Date of Service: January 03, 2024
Pt c/o cough which is improving
Objective Data
-
Lab Results
01/03/24 02:48
01/03/24 02:48
PT 15.0 Sec (11.4-14.6) H 12/28/23 02:41
INR 1.20 12/28/23 02:41
APTT 33.3 Sec (23.4-35.0) 12/27/23 12:39
Vital Signs
Vital Signs
Temp Pulse Resp BP Pulse Ox
98.1 F 65 20 138/58 93
01/03/24 02:50 01/03/24 03:00 01/03/24 02:50 01/03/24 02:50 01/03/24 02:50
CT Intake/Output/Weight
01/02/24 01/02/24 01/03/24
06:59 18:59 06:59
Intake Total 173.4 / 263.4 90 / 263.4
Output Total 100 / 325 225 / 425 200 / 425
Balance -100 / 978.2 -51.6 / -161.6 -110 / -161.6
SaO2: 93 (2L)
Physical Exam
-
General: Awake, Oriented and AOx3
Cardiovascular: Regular rate & rhythm, No Murmurs, No Rub and No Gallop
Respiratory: Decreased Breath Sounds
Sternum: Stable
Incision: Clean, Dry, Intact and Dressing Intact
Extremities: Edema +1
Data Reviewed
-
Lab Results: Results Reviewed
Medications: Active Meds Reviewed
Chest X-Ray: Report Reviewed and Image Reviewed
ECG: Report Reviewed and Image Reviewed
[2024-01-03 06:00] VITALS: BMI 33.1
[2024-01-03] MEDS: TYLENOL 1000 MG PO (06:14)
[2024-01-03] MEDS: ROBITUSSIN DM 10 ML PO ×2 (06:21→10:32)
[2024-01-03 07:15] VITALS: BP 148/65
[2024-01-03] MEDS: SPIRIVA RESPIMAT 2.5 MCG 2 PUFF INH (07:31)
[2024-01-03] MEDS: XOPENEX 1.25 MG INHALANT SOLUTION INH (07:31)
[2024-01-03] MEDS: PULMICORT 0.25 MG INH (07:31)
--- NOTE | 2024-01-03 07:35 | PTCARENOTE ---
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 Awaiting breakfast. NSR via cm, SaO2 @ 91% on RA. RIJ Cordis w/kvo infusing. All procedural sites stable. Patient updated to plan of care for the
day, in agreement. See work list for full assessment and interventions performed.
[2024-01-03] MEDS: LASIX 40 MG PO (08:15)
[2024-01-03] MEDS: PLAVIX 75 MG PO (08:16)
[2024-01-03] MEDS: THERAGRAN 1 TABLET PO (08:16)
[2024-01-03] MEDS: LOPRESSOR 25 MG PO (08:16)
[2024-01-03] MEDS: PROTONIX 40 MG PO (08:16)
[2024-01-03] MEDS: OSCAL CAL 500 500 MG PO (08:16)
[2024-01-03] MEDS: LOW STRENGTH ASPIRIN 81 MG PO (08:16)
[2024-01-03] MEDS: PACERONE 200 MG PO (08:16)
[2024-01-03] MEDS: FLOMAX 0.4 MG PO (08:16)
[2024-01-03] MEDS: VITAMIN C 1000 MG PO (08:17)
[2024-01-03] MEDS: MUCINEX 600 MG PO (08:17)
[2024-01-03] MEDS: SENOKOT-S PO (08:17)
[2024-01-03] MEDS: CLARITIN 10 MG PO (08:17)
--- NOTE | 2024-01-03 09:33 | CM ---
Reviewed chart. [facility]. [facility] at [place] will have a bed today if he is medically stable. Spouse is bringing in the respiratory vest. Telephone call to Mrs. Molina to update
her on the discharge plan. The phone number for report is ) Medical work-up in progress. The discharge plan is to go to [facility] at [place] when medically stable.
[2024-01-03] MEDS: NSS IV (09:35)
--- NOTE | 2024-01-03 09:47 | W.DCSUMMARY ---
Discharge Summary
Discharge Data
Date of Admission: 12/27/23
Date of Discharge: 01/03/24
Total time spent discharging patient (in min): 45
-
Pending Results: No
Hospital Course
Primary care physician:
Dr. Deanna Madera
Outpatient tape fastener machine operator:
Dr. Randle
Inpatient consultants:
Endoscopy Nurse and DCA
Procedures:
1. Coronary artery bypass grafting x 4 (In situ PAYAN to LAD, Ao to RSVG to Diag seq to OM2/LPL, Ao to RSVG to RPDA) and Surgical aortic valve replacement [23mm biological valve]
Primary Diagnosis:
1. Aortic valve stenosis, moderately severe with multivessel coronary artery disease involving the proximal LAD
Secondary Diagnoses:
1. Acute post-operative confusion
2. Acute postop pulmonary insufficiency
3. Hyperlipidemia
4. Hypertension
5. Villareal's esophagus
6. Acute postop kidney injury
7. Vestibular neuritis
8. Colonic Extavia
9. Peptic ulcer disease
10. Thyroid nodules
11. History of vertebral fracture
11. Inguinal hernia
12. Prostate cancer treated with chemotherapy
13. Fatty liver new
14. Chronic obstructive pulmonary disease
15. Chronic cough
16. Acute blood loss anemia
HPI: 78-year-old male who previously was in the emergency department back in October 2023 at which point he had an abnormal stress test with evidence of inferior apical scarring mild to mid anterior anterolateral ischemia. He subsequently underwent
a left heart cath which demonstrated multivessel coronary artery disease as well as mildly severe aortic valve stenosis. His mean gradient on echocardiogram will range between 30 and 32 mmHg. LIZA of the valve was calculated to be around 0.8. The
vessel nature of his coronary disease as well as his aortic valve stenosis, multidisciplinary team discussion came to the consensus that he would be better served with surgical aortic valve replacement along with CABG. he presented electively on
12/[address] Martínez.
Hospital course: Patient electively presented on 12/26 for CABG and AVR with Dr. Martínez. Postoperatively he returned to the CVICU for the remainder of his recovery on Levophed, Precedex, and insulin infusions. Precedex was turned off and patient was
extubated by 1744. And was temporarily on nitroglycerin for blood pressure control. He was then started on dobutamine at 2 mcg/kg/min. 12/27 postoperative day #1 patient had very labile blood pressures and he was given 1.5 L of lactated Ringer's
and 1 unit of packed red blood cells. Dobutamine was weaned to 1. Nitroglycerin and Cardene were discontinued for shunting and systolic blood pressure goals were liberalized to goal of 1 less than 130. His pleural chest tube was removed. He was
started on BiPAP overnight and was given 1 amp of sodium bicarb. He was also given 40 of IV Lasix with minimal response. For his cough he was started on Mucinex and DuoNebs. On 1009 postoperative day #2 patient was transition from BiPAP to high
flow nasal cannula 40% and 50 L. Infusions were weaned off and arterial line and [place] catheter was removed he was then redosed with 40 mg of IV Lasix with minimal response. On 12/29 postoperative day #3 patient became very confused and
agitated. ABG was stable so he was started on Seroquel. Wires were pulled with chest tubes discontinued to follow. He was diuresed with Diamox and 2 mg of IV Bumex. On 12/30 postoperative day #4, patient mental status improved with Seroquel on
board physical therapy was consulted for acute rehab placement. He was again diuresed and was able to wean oxygen down to nasal cannula. On 12/31 postoperative day #5, patient's delirium resolved. He then converted to A-fib with RVR for 4 hours
and was started on an amio infusion and bolus. He was again transfused with 1 unit of packed red blood cells for acute postop anemia and Lopressor was increased to 25 mg twice daily. On 01/01 postoperative day #6 he was diuresed with 40 mg of IV
Lasix and Robitussin DM was started for increased cough. Physiatry evaluated patient and deemed him appropriate for acute rehab at [place]. On 01/02 postoperative day #7 patient was weaned to room air. Cordis was discontinued. He was then started
on a regimen of oral diuretics and oral Amio for heart rate control. 2 view chest x-ray was stable and he was deemed stable for discharge to acute rehab.
Home medication changes:
see below
Discharge Plan
-
Patient Disposition: Acute Rehab Facility
Discharge Diagnosis/Procedures: Coronary artery bypass grafting x 4 (In situ PAYAN to LAD, Ao to RSVG to Diag seq to OM2/LPL, Ao to RSVG to RPDA) and Surgical aortic valve replacement [23mm biological valve]
Condition: Good
Diet: Low Cholesterol
Activity: No strenuous activity
Driving Restrictions: Not until seen by your Dr
Bathing Restrictions: OK to Shower
Blood Work: BMP in one week
Other Services: Cardiac Rehab
Specialty Instructions: Weigh Daily- Call MD for wt gain/loss 3 lbs overnight/5 lbs in 1 week
Activity Restrictions/Additional Instructions:
ACTIVITY:
-No strenuous activity: no heavy lifting, pushing, pulling anything over 15 pounds for one month
-continue to use stairs as tolerated
DRIVING RESTRICTIONS:
-No driving for one month or until approved by your surgeon
WOUND CARE:
-Shower daily. Use soap & water.
-No lotions, creams or powders on incision area.
DIET:
-continue a low fat/low cholesterol diet.
-IF you are diabetic, continue carb controlled diet.
CARDIAC REHAB:
-Please make appointment to start in 5-6 weeks with your local hospital program. (See Cardiac Rehabilitation Discharge Booklet).
SPECIALTY INSTRUCTIONS:
-Weigh yourself daily. Call your physician for any weight gain/loss of 3 lbs overnight or 5 lbs in one week.
-REPORT any clicking noise or uneven appearance of your sternum to your surgeon immediately.
-If you smoke, you are instructed to quit. The [place] smoking hotline phone number is [phone]
Referrals:
CT Transitional Care Nurse [Outside] (The Cardiothoracic Transitional Care Nurse will call you to set up a visit in 1-2 days.)
[facility] [Outside] - 02/07/24 1:00 pm
(Cardiac Rehab Orientation appointment is on 02/07/24 at 1:00pm
The Cardiac Rehab gym is located on the first floor [facility]
Deanna Madera MD [Family Provider] -
Zena Brown PA-C [Specified Professional Personl] - 02/08/24 10:40 am
Alfredo Martínez MD [Active] - 02/01/24 1:45 pm
Additional Discharge Medication Instructions: Please take amiodarone 200mg BID for 14 days and then decrease to 200mg daily
please take 40mg Lasix daily for 1 week along with potassium repletion and then get a repeat BMP in 1 week
Prescriptions:
New
clopidogrel 75 mg Tablet
75 mg PO DAILY Qty: 0 0RF
levalbuterol HCl 1.25 mg/3 mL Solution For Nebulization
1.25 mg inhalation R TID Qty: 0 0RF
loratadine 10 mg Tablet
10 mg PO DAILY Qty: 0 0RF
Spiriva Respimat 2.5 mcg/actuation Mist
2 puff inhalation R DAILY Qty: 0 0RF
amiodarone 200 mg tablet
200 mg PO BID Qty: 60 0RF
Rx Instructions:
Please take amiodarone 200mg twice a day for 14 days and then decrease to 200mg daily
furosemide 40 mg Tablet
40 mg PO DAILY Qty: 0 0RF
acetaminophen 325 mg Tablet
650 mg PO Q4HPRN PRN (Reason: mild pain,headache,temp >101F ) Qty: 0 0RF
sennosides-docusate sodium 8.6-50 mg Tablet
1 tab PO Q12 Qty: 0 0RF
dextromethorphan-guaifenesin 10-100 mg/5 mL Syrup
10 ml PO Q4H Qty: 0 0RF
amlodipine 5 mg Tablet
5 mg PO DAILY Qty: 0 0RF
bisacodyl 10 mg Suppository
10 mg OK DAILYPRN PRN (Reason: constipation ) Qty: 0 0RF
pantoprazole 40 mg Tablet,Delayed Release (Dr/Ec)
40 mg PO DAILY Qty: 0 0RF
budesonide 0.25 mg/2 mL Suspension For Nebulization
0.25 mg inhalation R BID Qty: 0 0RF
rosuvastatin 40 mg Tablet
40 mg PO QPM Qty: 0 0RF
metoprolol tartrate 25 mg Tablet
25 mg PO Q12 Qty: 0 0RF
melatonin 5 mg Tablet
5 mg PO HS Qty: 0 0RF
guaifenesin 600 mg Tablet Extended Release 12hr
600 mg PO Q12 Qty: 0 0RF
potassium chloride 10 mEq tablet extended release
10 meq PO DAILY Qty: 7 0RF
Continued
calcium carbonate [Calcium 600] 600 MG tablet
600 mg PO DAILY
azelastine 1 SPRAY aerosol,spray
2 spray intranasal BID
aspirin 81 MG tablet,delayed release (DR/EC)
81 mg PO DAILY
docosahexaenoic acid-epa 1 CAP capsule
3,000 mg PO DAILY
multivitamin with folic acid [Tab-A-Milena] 1 TABLET tablet
1 tab PO DAILY
albuterol sulfate 1 PUFF HFA aerosol inhaler
2 puff inhalation R TIDPRN PRN (Reason: wheezing /sob) Qty: 0
escitalopram oxalate 10 MG tablet
5 mg PO QPM
L.acidoph, paracasei,B. lactis 1 EACH capsule
1 ea PO DAILY
arformoterol [Brovana] 15 MCG/2 ML solution for nebulization
15 mcg inhalation R BID
tamsulosin 0.4 MG capsule
0.4 mg PO DAILY
ezetimibe 10 mg Tablet
10 mg PO HS
famotidine [Heartburn Prevention] 20 mg tablet
20 mg PO DAILY PRN (Reason: GERD)
Discontinued
esomeprazole magnesium [Nexium] 40 MG capsule,delayed release(DR/EC)
40 mg PO DAILY
nitroglycerin 0.4 MG tablet, sublingual
0.4 mg sublingual [id number] PRN (Reason: chest pain)
levocetirizine 5 MG tablet
5 mg PO BID
glucosam-chond qv-[id number] ac 1 EACH capsule
1 cap PO DAILY
metoprolol tartrate 25 MG tablet
12.5 mg PO HS
furosemide 20 MG tablet
20 mg PO DAILY Qty: 0
Yupelri 175 MCG/3 ML solution for nebulization
175 mcg inhalation R QPM
pravastatin 40 MG tablet
80 mg PO HS
budesonide 0.5 MG/2 ML suspension for nebulization
0.5 mg inhalation R DAILY
isosorbide mononitrate 30 mg Tablet Extended Release 24 Hr
30 mg PO DAILY
Discharge Orders:
Discharge Patient (As Directed); Ordered 01/03/24
Ordered By: Mally Arauz
Care Plan Goals
Care Plan Goals:
Problem: Readiness for enhanced knowledge related to diagnosis and treatment plan
Goal: Understand your diagnosis and treatment plan needs, including medications if applicable.
Instructions: Know your diagnosis, underlying causes and treatment plan options, including medications if applicable. Consult with your health care team to learn about your diagnosis and treatment plan, including medications if applicable.
Discharge Date and Time
Print Language: DIVEHI
--- NOTE | 2024-01-03 10:13 | W.PN.CARDCBS ---
Addendum entered and electronically signed by Oscar Fischer MD 01/03/24 14:32:
I saw and examined the patient.
The [employer]'s note was reviewed and I agree with the note.
Comment:
GEN: No distress, awake, Ox3
HEENT: supple, anicteric, mmm
LUNGS: CTA, no wheezes/rales
CV: Reg, S1/S2, 1/6 syst LSB, no gallop
ABD: soft, BS+, NT/ND
EXT: No edema
NEURO: Gross non-focal
SKIN: No rash
Plan:
Remains in sinus rhythm. Okay for [place] rehab.
If has further atrial fibrillation would recommend full anticoagulation.
Continue aspirin and Plavix.
Cont Lasix
Original Note:
Today's Communication / Plan
-
Going to [place] rehab today
Not on OAC, if recurs with Afib will start OAC
Impression / Plan
-
PCP: Dr. Deanna Madera
Primary Asparagus Cutter: Dr. Parker
Impression:
Postoperative delirium
Postoperative atrial fibrillation
Postoperative anemia
Renal insufficiency
CAD
s/p JOHNY to RCA 02/2009
NSTEMI and JOHNY to Diag-1 and OM-1 05/2010
s/p CABG with PAYAN to LAD, SVG sequential to Diab and OM-2/LPL, SVG to RPDA 12/27/23
s/p tissue AVR for moderate to severe 12/27/23
Mod MR by echo 11/04/23
CLL
Prostate cancer
h/o sinus bradycardia and 6 second pause leading to syncope 2016
h/o GERD and Villareal's
History of postoperative atrial fibrillation
Echo 11/04/2023: EF 60 to 65%, moderate MR, moderate AAS mean gradient 29 mmHg, LIZA 0.8 cm sq, mild aortic insufficiency
Plan:
-Patient is scheduled for transfer to [facility] 01/03/24
-Patient weighed 211 lbs on 12/27/23 and is up to 223 lbs on 01/03/24. Patient was taking Lasix 20 mg PO daily prior to admission. Lasix 40 mg PO daily ordered at transfer.
-LDL 72 on 09/21/23. Patient was taking pravastatin 80 mg daily and Zetia 10 mg daily prior to admission, this was changed to Crestor 40 mg daily and Zetia.
-ECG from 01/03/24 reviewed by me and looks like SR without acute ischemic changes. Remains in sinus rhythm today. Amiodarone 200 mg BID ordered at transfer.
-No plans for OAC unless patient recurs with Afib
-Patient is ordered aspirin and Plavix
HPI: Patient was seen in ER on 11/04/2023 for chest pain. He then had an abnormal stress test with evidence of small mild inferoapical scar and mild mid anterior, anterolateral ischemia. The patient was then referred for cardiac catheterization
on 11/11/2023 he was found to have multivessel CAD including significant stenosis in the mid LAD spanning the origin of a previously placed stent in the diagonal branch. There is also a 65 to 70% stenosis in the proximal RCA within the previously
stented segment. Additionally echo from 11/04/2023 showed moderate with mean gradient 29 mmHg and LIZA 0.8 cm sq. Patient was seen in consultation by CT surgeon and was recommended CABG and tissue AVR which was performed on 12/27/2023.
Progress Note - Asparagus Cutter
Subjective
Date of Service: January 03, 2024
No chest pain
Objective
Labs:
01/03/24 02:48
01/03/24 02:48
Labs
Hgb 8.4 g/dL (13.0-18.0) L 01/03/24 02:48
Hct 25.8 % (39.0-52.0) L 01/03/24 02:48
Plt Count 275 10^3/uL (130-400) D 01/03/24 02:48
PT 15.0 Sec (11.4-14.6) H 12/28/23 02:41
INR 1.20 12/28/23 02:41
APTT 33.3 Sec (23.4-35.0) 12/27/23 12:39
Sodium 141 mmol/L (135-145) 01/03/24 02:48
Potassium 4.0 mmol/L (3.5-5.1) 01/03/24 02:48
BUN 32 mg/dl (9-20) H 01/03/24 02:48
Creatinine 1.5 mg/dL (0.7-1.3) H 01/03/24 02:48
Glucose 109 mg/dl (70-99) H 01/03/24 02:48
Vital Signs and I&O:
Vital Signs
Temp Pulse Resp BP Pulse Ox
98 F 66 18 148/65 91
01/03/24 07:24 01/03/24 10:00 01/03/24 07:35 01/03/24 08:16 01/03/24 07:35
Vital Signs
Temp Pulse Resp BP Pulse Ox
98 F 66 18 148/65 91
01/03/24 07:24 01/03/24 10:00 01/03/24 07:35 01/03/24 08:16 01/03/24 07:35
Intake & Output
01/01/24 01/02/24 01/03/24 01/04/24
06:59 06:59 06:59 06:59
Intake Total 240 / 250 1303.2 / 1303.2 293.4 / 293.4 280 / 280
Output Total 260 / 360 325 / 325 625 / 625
Balance -20 / -110 978.2 / 978.2 -331.6 / -331.6 280 / 280
Physical Exam
Physical Exam
GEN: AAO to person, place and situation
HEENT: MMM
LUNGS: No audible wheeze
CV: SR on tele
ABD: [place]
EXT: No edema B/L
SKIN: No rash
[2024-01-03 10:19] VITALS: BP 148/69
[2024-01-03] MEDS: NORVASC 5 MG PO (10:32)
[2024-01-03 11:09] VITALS: BP 134/42
== END 2024-01-03 12:09 | DRG 219 ==
LOC: CVICU 05:06
PROVIDERS: Anesthesiology; Clinical Nurse Specialist Acute Care; Nurse Practitioner Primary Care; Physician Assistant Medical; ADMITTING PHYSICIAN Thoracic Surgery (Cardiothoracic Vascular Surgery); CONSULT PHYSICIAN Internal Medicine Critical Care Medicine; CONSULT PHYSICIAN Physical Medicine & Rehabilitation; FAMILY PHYSICIAN Family Medicine
PROC: 021209W Bypass Coronary Artery, Three Arteries from Aorta with Autologous Venous Tissue, Open Approach (ICD-10-PCS; 2023-12-27)
PROC: 06BP4ZZ Excision of Right Saphenous Vein, Percutaneous Endoscopic Approach (ICD-10-PCS; 2023-12-27)
PROC: 02RF08Z Replacement of Aortic Valve with Zooplastic Tissue, Open Approach (ICD-10-PCS; 2023-12-27)
PROC: 5A1221Z Performance of Cardiac Output, Continuous (ICD-10-PCS; 2023-12-27)
PROC: B24BZZ4 Ultrasonography of Heart with Aorta, Transesophageal (ICD-10-PCS; 2023-12-27)
PROC: 02100Z9 Bypass Coronary Artery, One Artery from Left Internal Mammary, Open Approach (ICD-10-PCS; 2023-12-27)
PROC: 02L70CK Occlusion of Left Atrial Appendage with Extraluminal Device, Open Approach (ICD-10-PCS; 2023-12-27)
PROC: 30233N1 Transfusion of Nonautologous Red Blood Cells into Peripheral Vein, Percutaneous Approach (ICD-10-PCS; 2023-12-28)
PROC: 5A09357 Assistance with Respiratory Ventilation, Less than 24 Consecutive Hours, Continuous Positive Airway Pressure (ICD-10-PCS; 2023-12-28)
DX: I35.0 Nonrheumatic aortic (valve) stenosis (principal); J95.1 Acute pulmonary insufficiency following thoracic surgery; F05 Delirium due to known physiological condition; N17.9 Acute kidney failure, unspecified; D62 Acute posthemorrhagic anemia; C91.10 Chronic lymphocytic leukemia of B-cell type not having achieved remission; J98.11 Atelectasis; J90 Pleural effusion, not elsewhere classified; I47.19 Other supraventricular tachycardia; I25.10 Atherosclerotic heart disease of native coronary artery without angina pectoris; K44.9 Diaphragmatic hernia without obstruction or gangrene; J44.9 Chronic obstructive pulmonary disease, unspecified; K76.0 Fatty (change of) liver, not elsewhere classified; E04.2 Nontoxic multinodular goiter; I48.91 Unspecified atrial fibrillation; E78.00 Pure hypercholesterolemia, unspecified; I25.2 Old myocardial infarction; K22.70 Barrett's esophagus without dysplasia; K21.9 Gastro-esophageal reflux disease without esophagitis; T45.1X5A Adverse effect of antineoplastic and immunosuppressive drugs, initial encounter; Y83.2 Surgical operation with anastomosis, bypass or graft as the cause of abnormal reaction of the patient, or of later complication, without mention of misadventure at the time of the procedure; E66.811 Obesity, class 1; I10 Essential (primary) hypertension; N99.0 Postprocedural (acute) (chronic) kidney failure; I07.1 Rheumatic tricuspid insufficiency; R73.03 Prediabetes; E86.1 Hypovolemia; E87.70 Fluid overload, unspecified; E87.5 Hyperkalemia; E83.41 Hypermagnesemia; K40.90 Unilateral inguinal hernia, without obstruction or gangrene, not specified as recurrent; Z68.33 Body mass index [BMI] 33.0-33.9, adult; Z79.82 Long term (current) use of aspirin; Z79.899 Other long term (current) drug therapy; Z85.46 Personal history of malignant neoplasm of prostate; Z87.11 Personal history of peptic ulcer disease; Z87.891 Personal history of nicotine dependence; Z95.5 Presence of coronary angioplasty implant and graft
CPT/HCPCS: 88305; 88311; 36415; 36600; 71045; 71046; 80048; 80053; 81003; 82248; 82330; 82565; 82570; 82805; 82810; 82947; 82962; 83036; 83735; 84132; 84300; 84302; 84520; 85014; 85018; 85025; 85027; 85049; 85610; 85730; 86850; 86900; 86901; 86920; 87070; 93005; 93312; 93320; 93325; 93880; 94002; 94010; 94640; 94660; 94667; 94668; 97116; 97163; 97167; 97530; 97535; J2916; P9016; P9045; P9047

== ENCOUNTER 2024-01-06 08:30 | Emergency (ER) | payer MEDICARE, SELFPAY ==
[2024-01-06] VITALS (7 sets, daily range): BP systolic 143–172; BP diastolic 61–82; BMI 34.2
[2024-01-06 08:41] LABS: Glucose - Point of Care 164 mg/dl (70-99)
--- NOTE | 2024-01-06 08:44 | ED.CVA ---
History of Present Illness
General
Chief Complaint: CVA/TIA Symptoms
Source: patient
Time Seen by Provider: 01/06/24 08:31
Onset of Stroke Symptoms
Onset of symptoms known: No
Date of onset of symptoms: 01/06/24
Time pt last seen normal is known: No
History of Present Illness
History of Present Illness:
78-year-old male presents complaining of feeling some sense of dizziness. He also felt a strange sensation in the right side of his body. Patient denies any specific weakness. He denies headache. Denies nausea or vomiting. Symptoms may be worse
with head movement. However at the time of my evaluation the symptoms are essentially gone. Patient recently hospitalized after bypass surgery. He is now receiving rehab at [facility]. He does take aspirin and Plavix.
Past History
Past History
ED Past Medical History: CAD, Cancer (CLL, low-grade, diagnosed 2000, prostate cancer), GERD (Esophageal ulcers, Villareal's esophagus), Hypercholesterolemia, [place] (Non-Q-wave [place] April 2010) and Other (Pericarditis 1981)
ED Past Surgical History: Cardiac (PTCA with stent times 04/23/2010, February 2013), Orthopedic and Tonsilectomy
Social History
Tobacco: Non-smoker
Alcohol: Occasional
Drug: None
Personal:
Living: with family
Employment: Retired
Family History
Family History: CAD
Phy Exam
Physical Exam
Physical Exam:
General: Awake, Alert, Oriented X3. No acute distress.
Vitals: unremarkable
Head: Atraumatic
Eyes: Pupils equal, EOMI
Throat: Airway intact, no exudates
Neck: Trachea midline
Chest: Sternal incision appears well-approximated and healing.
Lungs: Clear and equal b/l
Heart: Regular rate, no murmurs
Abd: Soft, Nontender, No pulsatile mass
Neuro: Cranial nerves intact, muscle strength equal bilaterally, cerebellar exam normal
Skin: Warm, dry, no rash
Extremities: pulses equal b/l, no edema
Scores
NIH Stroke Score
Level of Consciousness: 0 - Alert
LOC Questions: 0-Answers both correctly
LOC Commands: 0-Performs both correctly
Best Horizontal Gaze: 0-Normal
Visual Curry: 0=Normal, no visual loss
Facial Palsy: 0=Normal, symmetrical
Motor - Right Arm: 0=No drift 10 seconds
Motor - Left Arm: 0=No drift 10 seconds
Motor - Right Le-No drift 5 seconds
Motor - Left Le-No drift 5 seconds
Limb Ataxia: 0-Absent
Sensation: 1-Mild loss
Best Language: 0-No aphasia
Dysarthria: 0-Normal
Extinction and Inattention: 0-No abnormality
Total Score:: 1
Course
Orders/Labs/Results
Orders:
Orders
01/06/24 08:40
EKG [Electrocardiogram (*1)] Urgent
Reason for Study: TIA/Stroke
EKG- Treatment ONCE
01/06/24 08:43
CT Head W/o Iv Contrast Urgent
Comment:
Reason For Exam: dizziness
EKG- Treatment ONCE
01/06/24 10:04
Basic Metabolic Panel Urgent
Complete Blood Count/With Diff Urgent
Urinalysis Reflex To Culture Urgent
Date Specimen was Collected: 01/06/24
Time Specimen was Collected: 10:03
Urine Microscopic Reflex Cult Urgent
Urine Culture Urgent
SHYAM Source: U
Specimen Description:
Date Specimen was Collected: 01/06/24
Time Specimen was Collected: 10:03
01/06/24 12:11
Cephalexin Monohydrate [Keflex] 500 mg PO NOW STA
01/06/24 12:15
Amoxicillin 875 mg/Clav 125 mg [Augmentin 875 mg/125 mg] 1 tablet PO NOW STA
Abnormal Lab Results
01/06/24 01/06/24
08:38 10:04
WBC 12.8 H 10^3/uL
(4.8-10.8)
RBC 2.86 L 10^6/uL
(4.70-6.10)
Hgb 8.4 L g/dL
(13.0-18.0)
Hct 26.0 L %
(39.0-52.0)
MCHC 32.3 L g/dL
(33.0-37.0)
RDW 16.1 H %
(11.5-14.5)
Plt Count 402 H 10^3/uL
(130-400)
Abs Immat Gran (auto) 0.2 H 10^3/uL
(0-0.05)
Absolute Neuts (auto) 9.3 H 10^3/uL
(1.4-6.5)
Absolute Monos (auto) 0.8 H 10^3/uL
(0.1-0.6)
Immature Gran % 1.6 H %
(0-0.5)
Lymphocytes % 13.9 L %
(20.5-51.1)
BUN 22 H mg/dl
(9-20)
Glucose 149 H mg/dl
(70-99)
Urine Nitrite (Reflex) Positive A
(Negative)
Leukocyte Esterase Rfl 2+ A
(Negative)
Urine WBC (Reflex) 40-50 A /HPF
(0-5)
Urine Bacteria (Reflex) Many A
(Negative)
POC Glucose 164 H mg/dl
(70-99)
01/06/24 10:04
01/06/24 10:04
Vital Signs
Initial and Last Documented VS:
Initial Vital Signs
Pulse Resp Pulse Ox
92 26 94
01/06/24 08:33 10/18/24 08:33 01/06/24 08:33
Last Documented Vital Signs
Temp Pulse Resp BP Pulse Ox
97.7 F 84 22 170/80 97
01/06/24 08:43 01/06/24 12:45 01/06/24 12:45 01/06/24 12:46 01/06/24 12:45
MDM/Problems Addressed
Differential Diagnosis Includes:
cva, tia, vertigo, sinusitis, uti
MDM/Problems Addressed:
Patient presents with vague symptoms of right sided unusual sensation. Also some dizziness. Neurologic exam here is unremarkable. CT shows no acute infarct or intracranial abnormality. He does have some findings suggestive of acute sinusitis.
Patient's urinalysis is abnormal. White count is mildly elevated at 12.8. Patient is stable for discharge back to [facility]. Will initiate antibiotics that will cover urine as well as sinusitis. Patient was seen by neurology. He recommends
outpatient MRI for completeness.
Chronic conditions affecting care: HTN and CAD
*Radiology
Radiology exam reviewed: radiology read reviewed
*Pulse Oximetry
Patient hypoxic: no
*EKG
Interpreted by ED Provider?: Yes
Heart Rate: 84
Rate: normal
Rhythm: sinus
[place]: normal axis
Interval: normal interval
QRS Pattern: normal QRS
Ischemia: no ischemia
*Pumper Gauger Interpretation
Rate: normal
Interpretation: normal
Rhythm: sinus
*Critical Care Note
Total Time (30-74mins, 75-104mins- exclusive of procedures): Not Applicable
ED Attending Note
-
Portions of this chart may have been created with voice recognition software.� Occasional wrong word or��sound alike� substitutions may have occurred due to the inherent limitations of voice recognition software.
Discharge Plan
Departure
Patient Disposition: Acute Rehab Facility
Date of Disposition: 01/06/24
Time of Disposition: 12:17
Patient with high blood pressure during this ER visit?: Yes
Condition: Good
Discharge Problem:
Dizziness, Acute UTI
Instructions: Urinary Tract Infection, Adult ED, Dizziness, Adult ED
Prescriptions:
No Action
aspirin 81 MG tablet,delayed release (DR/EC)
81 mg PO DAILY
multivitamin with folic acid [Tab-A-Milena] 1 TABLET tablet
1 tab PO DAILY
albuterol sulfate 1 PUFF HFA aerosol inhaler
2 puff inhalation R TIDPRN PRN (Reason: wheezing /sob) Qty: 0
L.acidoph, paracasei,B. lactis 1 EACH capsule
1 ea PO DAILY
tamsulosin 0.4 MG capsule
0.4 mg PO DAILY
ezetimibe 10 mg Tablet
10 mg PO HS
famotidine [Heartburn Prevention] 20 mg tablet
20 mg PO DAILYPRN PRN (Reason: GERD)
clopidogrel 75 mg Tablet
75 mg PO DAILY Qty: 0 0RF
loratadine 10 mg Tablet
10 mg PO DAILY Qty: 0 0RF
Spiriva Respimat 2.5 mcg/actuation Mist
2 puff inhalation R DAILY Qty: 0 0RF
furosemide 40 mg Tablet
40 mg PO DAILY Qty: 0 0RF
Rx Instructions:
please take daily for 1 week along with potassium reletion and then get a repeat BMP in 1 week
acetaminophen 325 mg Tablet
650 mg PO Q4HPRN PRN (Reason: mild pain,headache,temp >101F ) Qty: 0 0RF
sennosides-docusate sodium 8.6-50 mg Tablet
1 tab PO Q12 Qty: 0 0RF
amlodipine 5 mg Tablet
5 mg PO DAILY Qty: 0 0RF
bisacodyl 10 mg Suppository
10 mg SD DAILYPRN PRN (Reason: constipation ) Qty: 0 0RF
pantoprazole 40 mg Tablet,Delayed Release (Dr/Ec)
40 mg PO DAILY Qty: 0 0RF
budesonide 0.25 mg/2 mL Suspension For Nebulization
0.25 mg inhalation R BID Qty: 0 0RF
rosuvastatin 40 mg Tablet
40 mg PO QPM Qty: 0 0RF
metoprolol tartrate 25 mg Tablet
25 mg PO Q12 Qty: 0 0RF
melatonin 5 mg Tablet
5 mg PO HS Qty: 0 0RF
potassium chloride 10 mEq tablet extended release
10 meq PO DAILY Qty: 7 0RF
trazodone [Desyrel] 50 mg Tablet
25 mg PO HSPRN PRN (Reason: sleep)
Rx Instructions:
may repeat dose if no sleep from first 25mg hs prn
calcium carbonate [Calcium 500] 500 mg calcium (1,250 mg) Tablet
500 mg PO DAILY
bisacodyl [Dulcolax (bisacodyl)] 5 mg Tablet,Delayed Release (Dr/Ec)
10 mg PO DAILYPRN PRN (Reason: constipation)
escitalopram oxalate [Lexapro] 5 mg Tablet
5 mg PO QPM
amiodarone 200 mg tablet
200 mg PO .BID-ON HOLD
Rx Instructions:
200mg bid for 14 days then decrease to 200mg daily
guaifenesin 600 mg tablet extended release 12hr
600 mg PO BID
Referrals:
Deanna Madera MD [Family Provider] -
Activity Restrictions/Additional Instructions:
Urine suggestive of UTI. Augmentin 875mg BID recommended. Neurology recommends non-urgent MRI as outpatient. CT did not show any acute intracranial findings but did suggest acute sinusitis on the right which may also be contributing to patients
symptoms which should also be covered by Augmentin.
Interventions
Interventions:
*Risk Screen - Suicide Last Done: 01/06/24 08:34
*General Assessment Last Done: 01/06/24 08:34
*Neglect/Abuse Screening Last Done: 01/06/24 08:34
ED- Fall Risk Assessment Last Done: 01/06/24 08:43
*ED COVID-19 Vaccine History Last Done: 01/06/24 08:34
*Nursing Disposition Last Done: 01/06/24 13:02
ED- Pulmonary Assessment Last Done: 01/06/24 08:43
ED- Neurological Assessment Last Done: 01/06/24 08:43
ED- Cardiac Assessment Last Done: 01/06/24 08:43
ED Swallowing Screen Last Done: 01/06/24 09:01
Discharge Date and Time
Discharge Date/Time: 01/06/24 13:03
Print Language: SPANISH
[2024-01-06 10:18] LABS: % Basophils 0.4 % (0-2); % Immature Granulocytes 1.6 % (0-0.5); % Lymphocytes 13.9 % (20.5-51.1); % Monocytes 6.2 % (1.7-9.3); % Neutrophils 72.9 % (42.2-75.2); Absolute Basophils 0.1 10^3/uL (0-0.2); Absolute Eosinophils 0.6 10^3/uL (0-0.7); Absolute Immature Granulocytes 0.2 10^3/uL (0-0.05); Absolute Lymphocytes 1.8 10^3/uL (1.2-3.4); Absolute Monocytes 0.8 10^3/uL (0.1-0.6); Absolute Neutrophils 9.3 10^3/uL (1.4-6.5); Hemoglobin 8.4 g/dL (13.0-18.0); Mean Corp Hgb Conc. 32.3 g/dL (33.0-37.0); Mean Corpuscular Hgb 29.4 pg (27.0-31.0); Mean Corpuscular Volume 90.9 fL (80.0-94.0); Mean Platelet Volume 9.3 fL (7.4-10.4); Nucleated Red Blood Cells % 0 % (-); Platelet Count 402 10^3/uL (130-400); Red Blood Cell Count 2.86 10^6/uL (4.70-6.10); Red Cell Dist. Width 16.1 % (11.5-14.5); White Blood Cell Count 12.8 10^3/uL (4.8-10.8)
[2024-01-06 10:37] LABS: Urine Albumin Trace (Neg - Trace); Urine Bilirubin Negative (Negative); Urine Character Clear (Clear); Urine Color Yellow; Urine Glucose Negative (Negative); Urine Ketone Negative (Negative); Urine Leukocyte 2+ (Negative); Urine Nitrite Positive (Negative); Urine Occult Blood Negative (Negative); Urine Urobilinogen Negative (Neg - 1+)
[2024-01-06 10:46] LABS: Blood Urea Nitrogen 22 mg/dl (9-20); Calcium 8.6 mg/dl (8.4-10.2); Carbon Dioxide 22 mmol/L (22-30); Chloride 105 mmol/L (98-107); Estimated Creatinine Clearance 61 ml/min; Glucose 149 mg/dl (70-99); Sodium 137 mmol/L (135-145); eGFR > 60.00
[2024-01-06 11:14] LABS: Urine Red Blood Cell 0-2 /HPF (0-2); Urine Squamous Cell 0-2 /LPF (Few)
[2024-01-06 11:15] LABS: Urine Bacteria Many (Negative); Urine White Cell 40-50 /HPF (0-5)
[2024-01-06] MEDS: AUGMENTIN 875 MG/125 MG 1 TABLET PO (12:45)
== END 2024-01-06 13:03 ==
LOC: EMR 08:30
PROVIDERS: EMERGENCY PHYSICIAN Emergency Medicine; FAMILY PHYSICIAN Family Medicine
DX: N39.0 Urinary tract infection, site not specified (principal); R42 Dizziness and giddiness; I25.10 Atherosclerotic heart disease of native coronary artery without angina pectoris; E78.00 Pure hypercholesterolemia, unspecified; I25.2 Old myocardial infarction; K21.9 Gastro-esophageal reflux disease without esophagitis; Z85.6 Personal history of leukemia; Z85.46 Personal history of malignant neoplasm of prostate; I10 Essential (primary) hypertension; Z79.82 Long term (current) use of aspirin; Z95.5 Presence of coronary angioplasty implant and graft; Z79.02 Long term (current) use of antithrombotics/antiplatelets
CPT/HCPCS: 99285; 70450; 80048; 81003; 81015; 82962; 85025; 87077; 87086; 87186; 93005

== ENCOUNTER 2024-01-19 06:22 | Outpatient (RCR) | payer MEDICARE, SELFPAY | END 2024-01-19 23:59 | disposition home or self-care (01) | LOC: RPT 06:22 | PROVIDERS: ATTENDING PHYSICIAN Physical Medicine & Rehabilitation; FAMILY PHYSICIAN Internal Medicine | DX: Z95.4 Presence of other heart-valve replacement (principal); Z95.1 Presence of aortocoronary bypass graft; Z73.6 Limitation of activities due to disability | CPT/HCPCS: 97163 ==

== ENCOUNTER → 2024-01-27 07:20 | Outpatient (REF) | payer MEDICARE, SELFPAY ==
[2024-01-27 08:26] LABS: % Immature Granulocytes 0.5 % (0-0.5); % Lymphocytes 28.5 % (20.5-51.1); % Monocytes 13.8 % (1.7-9.3); % Neutrophils 42.2 % (42.2-75.2); Absolute Basophils 0.1 10^3/uL (0-0.2); Absolute Eosinophils 0.8 10^3/uL (0-0.7); Absolute Lymphocytes 1.7 10^3/uL (1.2-3.4); Absolute Monocytes 0.8 10^3/uL (0.1-0.6); Absolute Neutrophils 2.5 10^3/uL (1.4-6.5); Hematocrit 34.1 % (39.0-52.0); Hemoglobin 10.9 g/dL (13.0-18.0); Mean Corpuscular Hgb 30.4 pg (27.0-31.0); Mean Platelet Volume 10.1 fL (7.4-10.4); Nucleated Red Blood Cells % 0 % (-); Platelet Count 355 10^3/uL (130-400); Red Blood Cell Count 3.59 10^6/uL (4.70-6.10); Red Cell Dist. Width 16.4 % (11.5-14.5)
[2024-01-27 08:55] LABS: Albumin 4.1 g/dl (3.5-5.0)
[2024-01-27 09:06] LABS: ALT (SGPT) 32 U/L (0-50); AST (SGOT) 31 U/L (17-59); Alkaline Phosphatase 68 U/L (38-126); Blood Urea Nitrogen 24 mg/dl (9-20); Calcium 9.8 mg/dl (8.4-10.2); Carbon Dioxide 26 mmol/L (22-30); Chloride 104 mmol/L (98-107); Glucose 103 mg/dl (70-99); HDL Cholesterol 35 mg/dl; LDH 225 U/L (120-246); LDL Cholesterol, Calculated 57 mg/dl; Sodium 141 mmol/L (135-145); Total Bilirubin 0.5 mg/dl (0.2-1.3); Total Cholesterol 125 mg/dl (50-199); Total Protein 6.7 g/dl (6.3-8.2); Triglyceride 169 mg/dl (10-149); Very Low Density Lipoprotein 33 mg/dl (0-30); eGFR 47.36
[2024-01-27 09:30] LABS: PSA, Total - Screen 0.27 ng/ml (0.0-4.0)
[2024-01-27 10:10] LABS: Glycohemoglobin (HgbA1c) 5.5 % (4.0-5.6)
== END ==
LOC: REG 07:20
PROVIDERS: ATTENDING PHYSICIAN Internal Medicine Hematology & Oncology; FAMILY PHYSICIAN Family Medicine; OTHER PHYSICIAN Family Medicine
DX: C91.10 Chronic lymphocytic leukemia of B-cell type not having achieved remission (principal); C61 Malignant neoplasm of prostate; G63 Polyneuropathy in diseases classified elsewhere; F34.1 Dysthymic disorder; I25.118 Atherosclerotic heart disease of native coronary artery with other forms of angina pectoris; N40.1 Benign prostatic hyperplasia with lower urinary tract symptoms; Z79.899 Other long term (current) drug therapy; Z12.5 Encounter for screening for malignant neoplasm of prostate
CPT/HCPCS: 36415; 80053; 80061; 83036; 83615; 85025; G0103

== ENCOUNTER 2024-02-13 13:43 | Outpatient (RCR) | payer MEDICARE, SELFPAY | END 2024-02-13 15:51 | disposition home or self-care (01) | LOC: ROT 13:43 | PROVIDERS: ATTENDING PHYSICIAN Physical Medicine & Rehabilitation; FAMILY PHYSICIAN Internal Medicine | DX: R26.89 Other abnormalities of gait and mobility (principal); Z95.4 Presence of other heart-valve replacement; Z95.1 Presence of aortocoronary bypass graft; Z73.6 Limitation of activities due to disability | CPT/HCPCS: 97110; 97112; 97167; 97530; 97535 ==

== ENCOUNTER 2024-02-15 16:04 | Outpatient (RCR) | payer MEDICARE, SELFPAY | END 2024-02-15 23:59 | disposition home or self-care (01) | LOC: CRHB 16:04 | PROVIDERS: ATTENDING PHYSICIAN Nuclear Medicine Nuclear Cardiology | DX: I25.10 Atherosclerotic heart disease of native coronary artery without angina pectoris (principal); Z95.1 Presence of aortocoronary bypass graft; Z95.2 Presence of prosthetic heart valve | CPT/HCPCS: G0422; G0423 ==

== ENCOUNTER 2024-02-23 15:52 | Outpatient (RCR) | payer MEDICARE, SELFPAY | END 2024-02-23 23:59 | disposition home or self-care (01) | LOC: ROT 15:52 | PROVIDERS: ATTENDING PHYSICIAN Physical Medicine & Rehabilitation; FAMILY PHYSICIAN Internal Medicine | DX: R26.89 Other abnormalities of gait and mobility (principal); Z95.4 Presence of other heart-valve replacement; Z95.1 Presence of aortocoronary bypass graft; Z73.6 Limitation of activities due to disability | CPT/HCPCS: 97112; 97164; 97530 ==

== ENCOUNTER 2024-03-19 16:24 | Outpatient (RCR) | payer MEDICARE, SELFPAY | END 2024-03-19 23:59 | disposition home or self-care (01) | LOC: CRHB 16:24 | PROVIDERS: ATTENDING PHYSICIAN Nuclear Medicine Nuclear Cardiology | DX: Z95.1 Presence of aortocoronary bypass graft (principal); I25.10 Atherosclerotic heart disease of native coronary artery without angina pectoris (principal); Z95.2 Presence of prosthetic heart valve | CPT/HCPCS: G0422; G0423 ==

== ENCOUNTER 2024-04-11 11:46 | Emergency (ER) | payer MEDICARE, SELFPAY ==
[2024-04-11 11:52] VITALS: BP 154/61
[2024-04-11 12:07] LABS: % Basophils 0.3 % (0-2); % Eosinophils 2.1 % (0-6); % Immature Granulocytes 0.3 % (0-0.5); % Monocytes 11.9 % (1.7-9.3); % Neutrophils 71.4 % (42.2-75.2); Absolute Eosinophils 0.3 10^3/uL (0-0.7); Absolute Lymphocytes 1.7 10^3/uL (1.2-3.4); Absolute Monocytes 1.5 10^3/uL (0.1-0.6); Absolute Neutrophils 8.7 10^3/uL (1.4-6.5); Hematocrit 38.2 % (39.0-52.0); Hemoglobin 12.1 g/dL (13.0-18.0); Mean Corp Hgb Conc. 31.7 g/dL (33.0-37.0); Mean Corpuscular Hgb 29.9 pg (27.0-31.0); Mean Corpuscular Volume 94.3 fL (80.0-94.0); Mean Platelet Volume 9.9 fL (7.4-10.4); Nucleated Red Blood Cells % 0 % (-); Platelet Count 230 10^3/uL (130-400); Red Blood Cell Count 4.05 10^6/uL (4.70-6.10); Red Cell Dist. Width 14.9 % (11.5-14.5); White Blood Cell Count 12.2 10^3/uL (4.8-10.8)
[2024-04-11 12:24] LABS: ALT (SGPT) 30 U/L (0-50); AST (SGOT) 26 U/L (17-59); Albumin 4.2 g/dl (3.5-5.0); Alkaline Phosphatase 66 U/L (38-126); Blood Urea Nitrogen 25 mg/dl (9-20); Calcium 9.1 mg/dl (8.4-10.2); Carbon Dioxide 25 mmol/L (22-30); Chloride 103 mmol/L (98-107); Glucose 89 mg/dl (70-99); Potassium 5.3 mmol/L (3.5-5.1); Sodium 137 mmol/L (135-145); Total Bilirubin 0.7 mg/dl (0.2-1.3); Total Protein 6.7 g/dl (6.3-8.2); eGFR 56.23
[2024-04-11 12:34] LABS: Troponin I < 0.012 ng/ml
[2024-04-11 13:15] VITALS: BMI 30.9
[2024-04-11] MEDS: LOW STRENGTH ASPIRIN 243 MG PO (13:16)
--- NOTE | 2024-04-11 13:23 | ED.GENMED ---
History of Present Illness
General
Chief Complaint: Cardiac Symptoms
Source: patient
Exam Limitations: none
Time Seen by Provider: 04/11/24 12:53
History of Present Illness
History of Present Illness:
78-year-old male with history of coronary artery disease, COPD presents with chest pains intermittently since yesterday but more so significant today. The pain is made worse occasionally with breathing. There is no shortness of breath. There was
some nausea but no vomiting. He took a nitroglycerin at home which seemed to help this discomfort. He also notes the pain is made slightly worse with eating breakfast today. He had quadruple bypass in December of last year followed by cardiology
here is on Plavix and aspirin. No recent travel or surgery otherwise.
Past History
Past History
ED Past Medical History: CAD, Cancer (CLL, low-grade, diagnosed 2000, prostate cancer), GERD (Esophageal ulcers, Villareal's esophagus), Hypercholesterolemia, CT (Non-Q-wave CT April 2010) and Other (Pericarditis 1981)
ED Past Surgical History: Cardiac (PTCA with stent times 04/23/2010, February 2013), Orthopedic and Tonsilectomy
Social History
Tobacco: Non-smoker
Alcohol: Occasional
Drug: None
Personal:
Living: with family
Employment: Retired
Family History
Family History: CAD
Phy Exam
Physical Exam
Physical Exam:
General: Well-appearing male no acute respiratory distress
HEENT: Normocephalic atraumatic
Heart: Regular rate and rhythm no murmurs
Lungs: Clear no wheeze
Abdomen soft mildly tender to the epigastric region no guarding rebound normal bowel sounds
Extremities: No cyanosis or edema
Skin: Warm no rash
Course
Orders/Labs/Results
Orders:
Orders
04/11/24 11:46
ECG [Electrocardiogram (*1)] Urgent
Reason for Study: Chest Pain
04/11/24 11:47
EKG- Treatment ONCE
04/11/24 11:50
CXR2 [CR Chest - 2 Views ] Urgent
Comment:
Reason For Exam: pain
04/11/24 11:57
Complete Blood Count/With Diff Urgent
Comprehensive Metabolic Panel Urgent
Troponin I Urgent
04/11/24 13:08
Aspirin Chewable [Low Strength Aspirin] 243 mg PO NOW STA
04/11/24 13:11
CT Chest PE Study Urgent
Comment:
Reason For Exam: chest pain
04/11/24 15:12
Troponin I Urgent
Abnormal Lab Results
04/11/24
11:57
WBC 12.2 H 10^3/uL
(4.8-10.8)
RBC 4.05 L 10^6/uL
(4.70-6.10)
Hgb 12.1 L g/dL
(13.0-18.0)
Hct 38.2 L %
(39.0-52.0)
MCV 94.3 H fL
(80.0-94.0)
MCHC 31.7 L g/dL
(33.0-37.0)
RDW 14.9 H %
(11.5-14.5)
Absolute Neuts (auto) 8.7 H 10^3/uL
(1.4-6.5)
Absolute Monos (auto) 1.5 H 10^3/uL
(0.1-0.6)
Lymphocytes % 14.0 L %
(20.5-51.1)
Monocytes % 11.9 H %
(1.7-9.3)
Potassium 5.3 H mmol/L
(3.5-5.1)
BUN 25 H mg/dl
(9-20)
04/11/24 11:57
04/11/24 11:57
Vital Signs
Initial and Last Documented VS:
Initial Vital Signs
Temp Pulse Resp BP Pulse Ox
98.5 F 63 18 154/61 98
04/11/24 11:52 04/11/24 11:52 04/11/24 11:52 04/11/24 11:52 04/11/24 11:52
Last Documented Vital Signs
Temp Pulse Resp BP Pulse Ox
98.5 F 67 25 154/61 96
04/11/24 11:52 04/11/24 14:18 04/11/24 14:00 04/11/24 11:52 04/11/24 14:00
MDM/Problems Addressed
Differential Diagnosis Includes:
Chest pain. Consider ACS versus PE versus reflux versus musculoskeletal discomfort.
EKG shows sinus rhythm with nonspecific ST wave changes. There is no ischemic changes noted otherwise. Rate is 63. Initial troponin is undetectable but repeat is pending. Given the pleuritic component of the his discomfort will order PE study.
If cardiac and pulmonary workup negative consider source of discomfort as GI such as reflux as pain did get worse after eating. Patient's symptoms did improve after nitroglycerin at home however. Will order a full aspirin for him to take.
*Critical Care Note
Total Time (30-74mins, 75-104mins- exclusive of procedures): Not Applicable
Update Note
Update Note:
Patient reexamined looks nontoxic feels well. CT PE protocol negative for PE. There is inflammation or soft tissue mass associated with the esophagus. Question possible GI related discomfort in his chest. Offered GI cocktail however he declined.
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 Recommended continued use of his PPI. Return precautions given
ED Attending Note
-
Portions of this chart may have been created with voice recognition software.� Occasional wrong word or��sound alike� substitutions may have occurred due to the inherent limitations of voice recognition software.
Discharge Plan
Departure
Patient Disposition: Home (Routine Discharge)
Date of Disposition: 04/11/24
Time of Disposition: 16:40
Patient with high blood pressure during this ER visit?: No
Discharge Problem:
Chest pain, Esophageal reflux
Instructions: Chest Pain DCA Follow Up
Prescriptions:
No Action
aspirin 81 MG tablet,delayed release (DR/EC)
81 mg PO DAILY
multivitamin with folic acid [Tab-A-Milena] 1 TABLET tablet
1 tab PO DAILY
L.acidoph,paracasei,B.animalis 1 EACH capsule
1 ea PO DAILY
tamsulosin 0.4 MG capsule
0.4 mg PO DAILY
ezetimibe 10 mg Tablet
10 mg PO HS
famotidine [Heartburn Prevention] 20 mg tablet
20 mg PO DAILYPRN PRN (Reason: GERD)
Spiriva Respimat 2.5 mcg/actuation Mist
2 puff inhalation R DAILY Qty: 0 0RF
acetaminophen 325 mg Tablet
650 mg PO Q4HPRN PRN (Reason: mild pain,headache,temp >101F ) Qty: 0 0RF
pantoprazole 40 mg Tablet,Delayed Release (Dr/Ec)
40 mg PO DAILY Qty: 0 0RF
rosuvastatin 40 mg Tablet
40 mg PO QPM Qty: 0 0RF
melatonin 5 mg Tablet
5 mg PO HS Qty: 0 0RF
escitalopram oxalate [Lexapro] 5 mg Tablet
5 mg PO QPM
dextromethorphan-guaifenesin 10-100 mg/5 mL Syrup
10 ml PO Q6HPRN PRN (Reason: cough) 30 Days Qty: 50 0RF
calcium carbonate 500 mg calcium (1,250 mg) Tablet
500 mg PO DAILY 30 Days Qty: 30 0RF
furosemide 40 mg Tablet
40 mg PO Q48H 30 Days Qty: 15 0RF
amiodarone 200 mg Tablet
200 mg PO DAILY 30 Days Qty: 30 0RF
midodrine 5 mg Tablet
10 mg PO BID@0700,1200 30 Days Qty: 120 0RF
budesonide 0.25 mg/2 mL Suspension For Nebulization
0.25 mg inhalation R BID 30 Days Qty: 120 0RF
clopidogrel 75 mg Tablet
75 mg PO DAILY 30 Days Qty: 30 0RF
loratadine 10 mg Tablet
10 mg PO DAILY Qty: 0 0RF
metoprolol tartrate 25 mg Tablet
25 mg PO Q12 Qty: 0 0RF
Referrals:
Wilber Prieto MD [Active] -
Deanna Madera MD [Family Provider] -
Activity Restrictions/Additional Instructions:
Continue current medicines including antacid. Follow-up with cardiology and GI. As discussed there is swelling around the esophagus. The cardiac workup here was negative. Please return here for worsening symptoms otherwise
Interventions
Interventions:
*Risk Screen - Suicide Last Done: 04/11/24 11:52
*General Assessment Last Done: 04/11/24 11:52
*Neglect/Abuse Screening Last Done: 04/11/24 11:52
*ED COVID-19 Vaccine History Last Done: 04/11/24 11:52
Discharge Date and Time
Print Language: BHUTANESE
[2024-04-11 15:09] VITALS: BP 158/72
[2024-04-11 15:44] LABS: Troponin I < 0.012 ng/ml
== END 2024-04-11 17:45 | disposition home or self-care (01) ==
LOC: EMR 11:46
PROVIDERS: Emergency Medicine; Physician Assistant; EMERGENCY PHYSICIAN Student in an Organized Health Care Education/Training Program; FAMILY PHYSICIAN Family Medicine
DX: R07.89 Other chest pain (principal); I25.10 Atherosclerotic heart disease of native coronary artery without angina pectoris; C91.10 Chronic lymphocytic leukemia of B-cell type not having achieved remission; E78.00 Pure hypercholesterolemia, unspecified; I25.2 Old myocardial infarction; J44.9 Chronic obstructive pulmonary disease, unspecified; K21.9 Gastro-esophageal reflux disease without esophagitis; Z79.02 Long term (current) use of antithrombotics/antiplatelets; Z82.49 Family history of ischemic heart disease and other diseases of the circulatory system; Z85.46 Personal history of malignant neoplasm of prostate; Z87.19 Personal history of other diseases of the digestive system; Z95.5 Presence of coronary angioplasty implant and graft
CPT/HCPCS: 99284; 71046; 71275; 80053; 84484; 85025; 93005; Q9967

== ENCOUNTER 2024-04-18 16:31 | Outpatient (RCR) | payer MEDICARE, SELFPAY | END 2024-04-18 23:59 | disposition home or self-care (01) | LOC: CRHB 16:31 | PROVIDERS: ATTENDING PHYSICIAN Nuclear Medicine Nuclear Cardiology | DX: I25.10 Atherosclerotic heart disease of native coronary artery without angina pectoris (principal); Z95.1 Presence of aortocoronary bypass graft; Z95.2 Presence of prosthetic heart valve | CPT/HCPCS: G0422; G0423 ==

== ENCOUNTER → 2024-04-19 07:54 | Outpatient (REF) | payer MEDICARE, SELFPAY | LOC: RCS 07:54 | PROVIDERS: ATTENDING PHYSICIAN Nuclear Medicine Nuclear Cardiology; FAMILY PHYSICIAN Family Medicine | DX: R06.02 Shortness of breath (principal) | CPT/HCPCS: 93306 ==

== ENCOUNTER 2024-05-16 16:14 | Outpatient (RCR) | payer MEDICARE, SELFPAY | END 2024-05-16 23:59 | disposition home or self-care (01) | LOC: CRHB 16:14 | PROVIDERS: ATTENDING PHYSICIAN Nuclear Medicine Nuclear Cardiology | DX: I25.10 Atherosclerotic heart disease of native coronary artery without angina pectoris (principal); Z95.1 Presence of aortocoronary bypass graft (principal); Z95.2 Presence of prosthetic heart valve | CPT/HCPCS: G0422; G0423 ==

== ENCOUNTER → 2024-05-21 06:36 | Outpatient (REF) | payer MEDICARE, SELFPAY ==
[2024-05-21 07:54] LABS: % Basophils 0.6 % (0-2); % Eosinophils 6.6 % (0-6); % Immature Granulocytes 0.4 % (0-0.5); % Monocytes 8.5 % (1.7-9.3); % Neutrophils 61.9 % (42.2-75.2); Absolute Basophils 0.1 10^3/uL (0-0.2); Absolute Eosinophils 0.5 10^3/uL (0-0.7); Absolute Lymphocytes 1.8 10^3/uL (1.2-3.4); Absolute Monocytes 0.7 10^3/uL (0.1-0.6); Hematocrit 39.6 % (39.0-52.0); Hemoglobin 12.6 g/dL (13.0-18.0); Mean Corp Hgb Conc. 31.8 g/dL (33.0-37.0); Mean Corpuscular Hgb 29.6 pg (27.0-31.0); Mean Corpuscular Volume 93.2 fL (80.0-94.0); Mean Platelet Volume 10.2 fL (7.4-10.4); Nucleated Red Blood Cells % 0 % (-); Platelet Count 245 10^3/uL (130-400); Red Blood Cell Count 4.25 10^6/uL (4.70-6.10); Red Cell Dist. Width 15.2 % (11.5-14.5); White Blood Cell Count 8.1 10^3/uL (4.8-10.8)
[2024-05-21 08:28] LABS: Blood Urea Nitrogen 28 mg/dl (9-20); Iron 72 ug/dl (49-181); LDH 226 U/L (120-246)
[2024-05-21 08:37] LABS: Percent Saturation 26 % (20-50); Total Iron Binding Capacity 276 ug/dl (261-462)
== END ==
LOC: REG 06:36
PROVIDERS: ATTENDING PHYSICIAN Internal Medicine Hematology & Oncology; FAMILY PHYSICIAN Family Medicine
DX: C91.10 Chronic lymphocytic leukemia of B-cell type not having achieved remission (principal); C61 Malignant neoplasm of prostate
CPT/HCPCS: 36415; 82565; 82728; 83540; 83550; 83615; 84520; 85025

== ENCOUNTER 2024-06-01 15:40 | Outpatient (RCR) | payer MEDICARE, SELFPAY ==
[2024-05-21 08:20] LABS: HDL Cholesterol 40 mg/dl; LDL Cholesterol, Calculated 61 mg/dl; Total Cholesterol 127 mg/dl (50-199); Triglyceride 130 mg/dl (10-149); Very Low Density Lipoprotein 26 mg/dl (0-30)
== END 2024-06-01 17:10 | disposition home or self-care (01) ==
LOC: CRHB 15:40
PROVIDERS: ATTENDING PHYSICIAN Nuclear Medicine Nuclear Cardiology; FAMILY PHYSICIAN Family Medicine; REFERRING PHYSICIAN Internal Medicine Interventional Cardiology
DX: Z95.1 Presence of aortocoronary bypass graft (principal); Z95.2 Presence of prosthetic heart valve; I25.10 Atherosclerotic heart disease of native coronary artery without angina pectoris
CPT/HCPCS: 80061; G0422; G0423

== ENCOUNTER → 2024-07-10 11:37 | Outpatient (REF) | payer MEDICARE, SELFPAY ==
[2024-07-10 13:04] LABS: % Basophils 0.6 % (0-2); % Eosinophils 5.5 % (0-6); % Immature Granulocytes 0.2 % (0-0.5); % Lymphocytes 23.9 % (20.5-51.1); % Monocytes 9.2 % (1.7-9.3); % Neutrophils 60.6 % (42.2-75.2); Absolute Basophils 0.1 10^3/uL (0-0.2); Absolute Eosinophils 0.5 10^3/uL (0-0.7); Absolute Lymphocytes 2.2 10^3/uL (1.2-3.4); Absolute Monocytes 0.9 10^3/uL (0.1-0.6); Absolute Neutrophils 5.6 10^3/uL (1.4-6.5); Hematocrit 38.3 % (39.0-52.0); Hemoglobin 12.1 g/dL (13.0-18.0); Mean Corp Hgb Conc. 31.6 g/dL (33.0-37.0); Mean Corpuscular Hgb 30.3 pg (27.0-31.0); Mean Corpuscular Volume 95.8 fL (80.0-94.0); Mean Platelet Volume 10.6 fL (7.4-10.4); Nucleated Red Blood Cells % 0 % (-); Platelet Count 271 10^3/uL (130-400); Red Cell Dist. Width 15.1 % (11.5-14.5); White Blood Cell Count 9.2 10^3/uL (4.8-10.8)
== END ==
LOC: REG 11:37
PROVIDERS: ATTENDING PHYSICIAN Family Medicine
DX: R31.0 Gross hematuria (principal)
CPT/HCPCS: 36415; 85025

== ENCOUNTER → 2024-09-11 11:09 | Outpatient (REF) | payer MEDICARE, SELFPAY | LOC: RAD 11:09 | PROVIDERS: FAMILY PHYSICIAN Family Medicine | DX: R05.8 Other specified cough (principal) | CPT/HCPCS: 71046 ==

== ENCOUNTER 2024-09-18 06:14 | Day surgery (SDC) | payer MEDICARE, SELFPAY ==
[2024-09-18 06:59] VITALS: BMI 29.8
[2024-09-18 07:08] VITALS: BP 176/85; BP 191/82
[2024-09-18 08:52] VITALS: BP 129/70
[2024-09-18 09:00] VITALS: BP 122/64
[2024-09-18 09:15] VITALS: BP 167/74
== END 2024-09-18 09:30 | disposition home or self-care (01) ==
LOC: SDS 06:14
PROVIDERS: ATTENDING PHYSICIAN Specialist
DX: K22.70 Barrett's esophagus without dysplasia (principal); K44.9 Diaphragmatic hernia without obstruction or gangrene
CPT/HCPCS: 43239; 88305; 88342

== ENCOUNTER → 2024-10-19 13:05 | Outpatient (REF) | payer MEDICARE, SELFPAY | LOC: RAD 13:05 | PROVIDERS: ATTENDING PHYSICIAN Family Medicine | DX: M54.16 Radiculopathy, lumbar region (principal) | CPT/HCPCS: 72110 ==

== ENCOUNTER → 2024-11-06 13:58 | Outpatient (REF) | payer MEDICARE, SELFPAY | LOC: RAD 13:58 | PROVIDERS: ATTENDING PHYSICIAN Family Medicine | DX: I70.213 Atherosclerosis of native arteries of extremities with intermittent claudication, bilateral legs (principal); G63 Polyneuropathy in diseases classified elsewhere | CPT/HCPCS: 93922 ==

== ENCOUNTER 2024-11-21 21:25 | Observation (INO) | payer MEDICARE, SELFPAY ==
[2024-11-21] VITALS (8 sets, daily range): BP systolic 139–194; BP diastolic 64–87; PULSE 56–65; BMI 31.7; BMI 31.3
[2024-11-21 15:48] LABS: Hematocrit 38.6 % (39.0-52.0); Hemoglobin 12.3 g/dL (13.0-18.0); Mean Corp Hgb Conc. 31.9 g/dL (33.0-37.0); Mean Corpuscular Volume 93.9 fL (80.0-94.0); Nucleated Red Blood Cells % 0 % (-); Platelet Count 231 10^3/uL (130-400); Red Cell Dist. Width 14.6 % (11.5-14.5)
[2024-11-21 15:57] LABS: ALT (SGPT) 25 U/L (0-50); AST (SGOT) 24 U/L (17-59); Albumin 3.9 g/dl (3.5-5.0); Alkaline Phosphatase 55 U/L (38-126); Blood Urea Nitrogen 26 mg/dl (9-20); Calcium 9.3 mg/dl (8.4-10.2); Carbon Dioxide 26 mmol/L (22-30); Chloride 109 mmol/L (98-107); Glucose 122 mg/dl (70-99); Potassium 5.0 mmol/L (3.5-5.1); Sodium 139 mmol/L (135-145); Total Protein 6.4 g/dl (6.3-8.2); eGFR > 60.00
[2024-11-21 16:09] LABS: Troponin I < 0.012 ng/ml
--- NOTE | 2024-11-21 19:02 | ED.GENMED ---
History of Present Illness
General
Chief Complaint: Dizziness
Source: patient
Exam Limitations: none
Time Seen by Provider: 11/21/24 18:28
Nursing documentation reviewed up to this point in time: agreed with
History of Present Illness
History of Present Illness:
79 y/o M with h/o CABG, not AC, htn, COPD, biologic aortic valve
prostate ca s/p chemo
here with lightheadedness and ataxia today
pt says he has had episodes of lightheadedness which is postural for a few months
he said he talked to his PCP about it and they were faye to order MRI but haven't yet
he has had vertigo and this doesn't feel like it
he has no cp, sob with it and doesn't feel like he is faye gto pass out but what he does feel is that he is falling to the left
pt has recently started gabapentin for neuropathy/radiculopathy in the R leg and is up to 300 mg daily
he doesn't think this is causing the symptoms
he has a mild R headache
no vision changes, weakness in arms or legs, cp, sob
Past History
Past History
ED Past Medical History: CAD, Cancer (CLL, low-grade, diagnosed 2000, prostate cancer), GERD (Esophageal ulcers, Villareal's esophagus), Hypercholesterolemia, [place] (Non-Q-wave [place] April 2010) and Other (Pericarditis 1981)
ED Past Surgical History: Cardiac (PTCA with stent times 04/23/2010, February 2013), Orthopedic and Tonsilectomy
Social History
Tobacco: Non-smoker
Alcohol: Occasional
Drug: None
Personal:
Living: with family
Employment: Retired
Family History
Family History: CAD
Review of Systems
Review of Systems
Allergies reviewed?: Yes
All Other Systems: Not applicable
Phy Exam
Physical Exam
Physical Exam:
GENERAL: Alert , in no apparent distress
HEAD: NCAT
EYE: pupils equal and reactive, no nystagmus, no photophobia
NECK: Supple,full rom, nontender
ENT: o/p clr, mmm.
CARDIAC: Regular rate and rhythm . no edema
LUNGS: Clear breath sounds bilaterally, no acute respiratory distress, no wheezes/rales/rhonchi
ABDOMEN: Soft, without focal tenderness, no r/g, no cvat
NEUROLOGICAL: Alert and orientedx 4, cn intact, no facial asymmetry, 5/5 strength in UE/LE, sensation intact, romberg + to the L; no past pointing
SKIN: Warm and dry, skin intact.
MUSCULOSKELETAL: No edema, well perfused.
PSYCH: Normal and appropriate interaction.
Course
Orders/Labs/Results
Orders:
Orders
11/21/24 15:16
Electrocardiogram (*1) Urgent
Reason for Study: Chest Pain
EKG- Treatment ONCE
11/21/24 15:31
Complete Blood Count/With Diff Urgent
Comprehensive Metabolic Panel Urgent
Troponin I Urgent
11/21/24 19:00
CT Head W/o Iv Contrast Urgent
Comment:
Reason For Exam: lightheadedness/ataxia
11/21/24 19:06
Orthostatic VS- Treatment ONCE
0.9% Sodium Chloride 500 ml [Nss] 500 ml IV BOLUS
11/21/24 20:06
Meclizine [Antivert] 12.5 mg PO NOW STA
Abnormal Lab Results
11/21/24
15:31
RBC 4.11 L 10^6/uL
(4.70-6.10)
Hgb 12.3 L g/dL
(13.0-18.0)
Hct 38.6 L %
(39.0-52.0)
MCHC 31.9 L g/dL
(33.0-37.0)
RDW 14.6 H %
(11.5-14.5)
MPV 10.5 H fL
(7.4-10.4)
Absolute Monos (auto) 0.8 H 10^3/uL
(0.1-0.6)
Eosinophils % 6.3 H %
(0-6)
Chloride 109 H mmol/L
(98-107)
BUN 26 H mg/dl
(9-20)
Glucose 122 H mg/dl
(70-99)
11/21/24 15:31
11/21/24 15:31
Vital Signs
Initial and Last Documented VS:
Initial Vital Signs
Temp Pulse Resp BP Pulse Ox
36.9 C 60 16 139/64 95
11/21/24 15:15 11/21/24 15:15 11/21/24 15:15 11/21/24 15:15 11/21/24 15:15
Last Documented Vital Signs
Temp Pulse Resp BP Pulse Ox
36.6 C 55 20 159/70 98
11/21/24 20:03 11/21/24 20:03 11/21/24 20:03 11/21/24 18:10 11/21/24 20:06
MDM/Problems Addressed
Differential Diagnosis Includes:
ATAXIA, ORTHOSTATIC HYPOTENSION, CVA, HYDROCEPHALUS, VERTIGO
MDM/Problems Addressed:
79 Y/O M
cabg, aortic valve, no AC
here with lightheadedness with standing x a few weeks but much worse today where he cannot walk
seems to lean to the L
shuffling gait
not usual for him
doesn't get worse with turning his head
doesn't feel like vertigo
doesn't feel like he is going to pass out
but feels very off balance
on beta eli but ORTHOSTATICS WERE NEG however he was symptomatic with standing pretty lightheaded and then off balance
+ romberg to the L
needed assistance walkign
ekg sinus lena 50s
trop neg
hg 12 stable
given ivf, small dose melcizine
ct head
admit, mri
*Pulse Oximetry
SaO2: 97
Oxygen Mode of Delivery: Room air
Patient hypoxic: no (98)
*Critical Care Note
Total Time (30-74mins, 75-104mins- exclusive of procedures): Not Applicable
ED Attending Note
-
Portions of this chart may have been created with voice recognition software.� Occasional wrong word or��sound alike� substitutions may have occurred due to the inherent limitations of voice recognition software.
Discharge Plan
Departure
Patient Disposition: Admit
Date of Disposition: 11/21/24
Time of Disposition: 20:09
Admit to: Telemetry
Presentation/result/management discussed w/ accepting MD/DO: Hospitalist
Condition: Fair
Covid-19: Not Applicable
Discharge Problem:
Ataxia, Lightheadedness
Prescriptions:
No Action
aspirin 81 MG tablet,delayed release (DR/EC)
81 mg PO DAILY
multivitamin with folic acid [Tab-A-Milena] 1 TABLET tablet
1 tab PO DAILY
L.acidoph,paracasei,B.animalis 1 EACH capsule
1 ea PO DAILY
tamsulosin 0.4 MG capsule
0.4 mg PO DAILY
ezetimibe 10 mg Tablet
10 mg PO HS
famotidine [Heartburn Prevention] 20 mg tablet
20 mg PO DAILYPRN PRN (Reason: GERD)
acetaminophen 325 mg Tablet
650 mg PO Q4HPRN PRN (Reason: mild pain,headache,temp >101F ) Qty: 0 0RF
escitalopram oxalate [Lexapro] 5 mg Tablet
5 mg PO QPM
furosemide 40 mg tablet
20 mg PO Q48H
calcium carbonate 500 mg calcium (1,250 mg) tablet
600 mg PO DAILY
budesonide 0.25 mg/2 mL suspension for nebulization
0.5 mg inhalation R BID
metoprolol tartrate 25 mg tablet
12.5 mg PO Q12
albuterol sulfate
2 puff PO TID
azelastine
2 spray BID
arformoterol [Brovana] 15 mcg/2 mL Solution For Nebulization
2 ml INHALATION BID
Fish Oil
3,000 mg PO DAILY
ferrous sulfate [iron] 325 mg (65 mg iron) Tablet
325 mg PO DAILY
Glucosamine Chondroitin
1,500 mg PO DAILY
levocetirizine 5 mg Tablet
5 mg PO BID
esomeprazole magnesium
40 mg PO DAILY
pravastatin 80 mg Tablet
80 mg PO HS
Yupelri 175 mcg/3 mL Solution For Nebulization
175 mcg INHALATION DAILY
dextromethorphan-guaifenesin 10-100 mg/5 mL Syrup
10 ml PO Q6HPRN PRN (Reason: cough) 30 Days Qty: 50 0RF
loratadine 10 mg Tablet
10 mg PO DAILY Qty: 0 0RF
Referrals:
Deanna Madera MD [Family Provider, Family Practice]
Interventions
Interventions:
*Risk Screen - Suicide Last Done: 11/21/24 15:15
*General Assessment Last Done: 11/21/24 18:17
*Neglect/Abuse Screening Last Done: 11/21/24 15:15
*ED- Fall Risk Assessment Last Done: 11/21/24 15:15
*ED COVID-19 Vaccine History Last Done: 11/21/24 18:17
ED- Neurological Assessment Last Done: 11/21/24 20:06
ED- Cardiac Assessment Last Done: 11/21/24 20:06
Discharge Date and Time
Print Language: CZECH
[2024-11-21] MEDS: NSS 500 IV (20:33)
[2024-11-21] MEDS: ANTIVERT 12.5 MG PO (20:37)
--- NOTE | 2024-11-21 20:37 | HPS.HSE ---
Family Physician
-
Family Physician: Deanna Madera
Chief Complaint
-
lightheadedness
History of Present Illness
HPI�
79H HX CABG, Tissue AoVR, CAD, LA , HTN, HLD , post op AF , COPD , Prostae CA seenat ER
- pw lightheadedness and subjective ataxia on and off for mothe
- episodes of lightheadedness which is postural for a few months
- d/w PCP has plan to have Brain MRI but not yet
- HX Vertigo but different from it
- denied presyncope
- subjective feeling of falling to Lt
- recently started gabapentin for neuropathy/radiculopathy in the R leg and is up to 300 mg daily
ROS
- no cp, sob with it and doesn't feel like he is faye gto pass out but what he does feel is that he is falling to the left
- mild R headache
- no vision changes, weakness in arms or legs, cp, sob
Medical History
Past Medical History
Past Medical History: Reports Arrhythmia (post op AF ), CAD (CABG ), Cancer (CLL, low-grade, diagnosed 2000, prostate cancer)), GERD ( GERD (Esophageal ulcers, Villareal's esophagus),), LA (LA (Non-Q-wave [place] April 2010)) and Other (pericarditis )
Past Surgical History: Reports Other ((PTCA with stent times 04/23/2010, February 2013), Orthopedic and Tonsillectomy)
Social History
Tobacco: Non-smoker
Alcohol: Occasional
Personal:
Employment: Retired
Family History
Family History: Not pertinent
Allergies / Home Medications
Allergies reflects when Allergies were last updated in [facility].
Home Medications with original date entered in [facility]
Allergy/Medication List:
Allergies
Allergy/AdvReac Type Severity Reaction Status Date / Time
atorvastatin calcium (From Allergy muscle Verified 11/21/24 15:17
Lipitor) aches
bupivacaine Allergy Anaphylaxis Verified 11/21/24 15:17
celecoxib (From Celebrex) Allergy duodenal Verified 11/21/24 15:17
ulcers
codeine (Codeine) Allergy DIZZINESS, Verified 11/21/24 15:17
CHILLS
fentanyl (Fentanyl) Allergy Anaphylaxis Verified 11/21/24 15:17
lidocaine Allergy Anaphylaxis Verified 11/21/24 15:17
prilocaine Allergy Anaphylaxis Verified 11/21/24 15:17
procaine (Procaine) Allergy Anaphylaxis Verified 11/21/24 15:17
Home Medications
aspirin 81 mg tablet,delayed release 81 mg PO DAILY Blood Clot Prevention/Tx 08/26/14
multivitamin with folic acid 400 mcg tablet (Tab-A-Milena) 1 tab PO DAILY Supplement 08/26/14
L.acidoph,paracasei,B.animalis 10 billion cell capsule 1 ea PO DAILY Gastrointestinal Issue 12/18/17
tamsulosin 0.4 mg capsule 0.4 mg PO DAILY Urinary Issue 01/18/21
ezetimibe 10 mg tablet 10 mg PO HS High Cholesterol 11/11/23
acetaminophen 325 mg tablet 650 mg (2 x 325 mg) PO Q4HPRN PRN mild pain,headache,temp >101F #0 tabs 01/03/24
escitalopram oxalate 5 mg tablet (Lexapro) 5 mg PO QPM 01/06/24
Fish Oil 3,000 mg PO DAILY 09/18/24
Glucosamine Chondroitin 1,500 mg PO DAILY 09/18/24
albuterol sulfate 2 puff PO TID PRN SOB 09/18/24
arformoterol 15 mcg/2 mL solution for nebulization (Brovana) 2 ml inhalation BID 09/18/24
azelastine 2 spray intranasal BID PRN SOB 09/18/24
budesonide 0.25 mg/2 mL suspension for nebulization 0.5 mg inhalation DAILY COPD 09/18/24
calcium carbonate 600 mg PO DAILY Supplement 09/18/24
esomeprazole magnesium 40 mg PO BID 09/18/24
ferrous sulfate 325 mg (65 mg iron) tablet (iron) 325 mg PO DAILY 09/18/24
furosemide 40 mg tablet 20 mg PO DAILY PRN fluid retention, 09/18/24
levocetirizine 5 mg tablet 5 mg PO BID 09/18/24
metoprolol tartrate 25 mg tablet 12.5 mg PO Q12 Blood pressure, heart rate 09/18/24
pravastatin 80 mg tablet 80 mg PO HS 09/18/24
revefenacin 175 mcg/3 mL solution for nebulization (Yupelri) 175 mcg inhalation DAILY 09/18/24
gabapentin 100 mg capsule 200 mg PO AMHS 11/21/24
gabapentin 100 mg tablet 100 mg PO HS 11/21/24
Review of Systems
-
Constitutional: Reports No Symptoms
EENT: Reports No Symptoms
Respiratory: Reports No Symptoms
Cardiac: Reports No Symptoms
Abdomen/GI: Reports No Symptoms
: Reports No Symptoms
Musculoskeletal: Reports No Symptoms
Skin: Reports No Symptoms
Neurological: Reports See HPI
Endocrine: Reports No Symptoms
Hematologic/Lymphatic: Reports No Symptoms
Psych: Reports No Symptoms
Physical Exam
Vital Signs
Vital Signs
Temp Pulse Resp BP Pulse Ox
97.9 F 55 20 159/70 98
11/21/24 20:03 11/21/24 20:03 11/21/24 20:03 11/21/24 18:10 11/21/24 20:06
Physical Exam
General: No Apparent Distress
HEENT: NormoCephalic, Anicteric, Moist mucous membranes and PERRLA
Respiratory: Clear
Cardiac: S1/S2 and Regular Rhythm
GI: Soft, Non Tender, Non Distended and Normal Bowel Sounds
Genito-urinary: Deferred by me
Musculoskeletal: No Edema
Neuro: Other (Alert and oriented x 4, cn intact, no facial asymmetry, 5/5 strength in UE/LE, sensation intact, Romberg + to the L; no past pointing)
Psych: Calm
Laboratory Results
-
11/21/24 15:31
11/21/24 15:31
Laboratory Results
Total Bilirubin 0.4 mg/dl (0.2-1.3) 11/21/24 15:31
AST 24 U/L (17-59) 11/21/24 15:
ALT 25 U/L (0-50) 11/21/24 15:31
Alkaline Phosphatase 55 U/L (38-126) 11/21/24 15:
Troponin I < 0.012 ng/ml 11/21/24 15:
Data Reviewed
-
Medical Tests (Nuc Med, Echo, EKG etc): Report Reviewed by me
Lab Data: Labs Reviewed by me
Old Records: Reviewed
Impression/Plan
-
Vital Signs
Temp Pulse Resp BP Pulse Ox
97.9 F 55 20 159/70 98
11/21/24 20:03 11/21/24 20:03 11/21/24 20:03 11/21/24 18:10 11/21/24 20:06
05/21/24 07/10/24 11/21/24
07:02 11:56 15:31
WBC 9.4
Hgb 12.1 L 12.3 L
Plt Count 271 231
Sodium 139
Potassium 5.0
Chloride 109 H
BUN 26 H
Creatinine 1.3 1.2
eGFR > 60.00
Troponin I < 0.012
EKG
SINUS BRADYCARDIA
OTHERWISE NORMAL ECG
WHEN COMPARED WITH ECG OF 11-Apr-2024 11:50,
NO SIGNIFICANT CHANGE WAS FOUND
Confirmed by OMID LYONS MD ([id number]) on 11/21/2024 5:48:00 PM
HCT: No acute pathology
ASSESSMENT & PLAN
Acute on chr intermittent postural lightheadedness/ presyncope with + subjective ataxia in last few days
HX Vestibular neuritis
- symptoms predated before increase dose of Gabapentin
- No cerebellar sign
- NEG HCT
- SB Unremarkable EKG
- Check Ortho VSS
- c/w all OP med
- Reduce Gabapentin to 100mg daily in place of 300mg for now and observe
- Brain MRI in AM - if any abnormality - to consider Neuro consult
- PT/OT
CABG & Biologic tissue AopVR ( 12/26/24)
HX CAD
Dyslipidemia
HX sinus bradycardia and 6 second pause leading to syncope 2016
- c/w TRACK AND FIELD COACH ASA
- c/w Metoprolol tartare - hold if HR < 55
- c/w TRACK AND FIELD COACH statin
Recently Dxed Neuropathy/radiculopathy in the R leg - recently started gabapentin titrated up to 300 mg daily
- Reduce Gabapentin to 100mg daily in place of 300mg for now and observe
CLL HX
Prostate CA
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
HX GERD and Villareal's
HX postoperative atrial fibrillation
Hyperlipidemia
Hypertension
Villareal's esophagus
Colonic Extavia
PUDz
Thyroid nodules
HX vertebral fracture
Prostate cancer treated with chemotherapy
Fatty liver new
COPD and Chronic cough
DVT Px: SQH
Full code
OBS TLM
--- NOTE | 2024-11-21 23:45 | PTCARENOTE ---
Pt received from ED via stretcher at 2315. Pt pleasant, AAOx3, VSS, and able to ambulate into room with RW and x1 assistance. Pt complains of mild (2/10) pain in lower legs bilaterally. Pt receptive to room and call escoto. Pt bed in lowest position
and call escoto within reach. Pt educated on importance of call escoto usage, pt relays understanding, but lack of cooperation. Bed alarm placed and plugged in. Will continue with current plan of care.
[2024-11-21] MEDS: ZETIA 10 MG PO (23:55)
[2024-11-21] MEDS: PRAVACHOL 80 MG PO (23:55)
[2024-11-21] MEDS: HEPARIN 5000 UNITS SC (23:55)
[2024-11-22] VITALS (10 sets, daily range): BP systolic 139–190; BP diastolic 61–84; PULSE 51–70; O2SAT 99
[2024-11-22] MEDS: TYLENOL 650 MG PO (03:15)
[2024-11-22] MEDS: PULMICORT 0.5 MG INH (08:31)
[2024-11-22] MEDS: VENTOLIN NEBULES 2.5 MG INH ×4 (08:32→19:43)
[2024-11-22] MEDS: SPIRIVA RESPIMAT 2.5 MCG 2 PUFF INH (08:32)
[2024-11-22 08:52] LABS: Blood Urea Nitrogen 21 mg/dl (9-20); Calcium 9.1 mg/dl (8.4-10.2); Carbon Dioxide 24 mmol/L (22-30); Chloride 110 mmol/L (98-107); Estimated Creatinine Clearance 62 ml/min; Glucose 95 mg/dl (70-99); Potassium 4.5 mmol/L (3.5-5.1); Sodium 139 mmol/L (135-145); eGFR > 60.00
[2024-11-22 08:53] LABS: Hematocrit 37.1 % (39.0-52.0); Hemoglobin 11.9 g/dL (13.0-18.0); Mean Corp Hgb Conc. 32.1 g/dL (33.0-37.0); Mean Corpuscular Volume 93.9 fL (80.0-94.0); Platelet Count 220 10^3/uL (130-400); Red Cell Dist. Width 14.4 % (11.5-14.5)
[2024-11-22] MEDS: VISBIOME 1 CAP PO (09:47)
[2024-11-22] MEDS: PROTONIX 40 MG PO ×2 (09:47→19:12)
[2024-11-22] MEDS: ASPIR LOW (ENTERIC COATED) 81 MG PO (09:47)
[2024-11-22] MEDS: FLOMAX 0.4 MG PO (09:47)
[2024-11-22] MEDS: NEURONTIN 100 MG PO (09:47)
[2024-11-22] MEDS: FEOSOL 325 MG PO (09:48)
[2024-11-22] MEDS: ZYRTEC 10 MG PO (09:48)
[2024-11-22] MEDS: HEPARIN 5000 UNITS SC ×2 (09:49→15:30)
--- NOTE | 2024-11-22 09:52 | CON.NEURO4 ---
Addendum entered and electronically signed by Hema Pearson MD 11/22/24 12:26:
Studies reviewed.
I have personally examined the patient. I reviewed and agree with the COMPUTER SYSTEM VALIDATION SPECIALIST's Note.
My addenda:
Awake, alert, interactive. No acute distress.
Speech intact.
Follows 2-step requests w/o difficulty. No tremor.
Extra-ocular movements grossly intact.
Facial movements full and symmetric. Hearing intact to normal conversational volume.
Normal UE movements bilaterally.
Neck: full ROM.
Chest: no dyspnea
Heart: no JVD
Ext: (-) Clubbing, (-) Cyanosis, (-) Edema
IMPRESSIONS/RECOMMENDATIONS:
Abrupt onset of recurrent dizziness and ataxia beginning in approximately 2020 by neuroimaging records
Evidence by testing of orthostatic hypotension with the patient experiencing prior episodes of vestibular dysfunction and exact clarity. It is likely that the patient's orthostasis is secondary to prior CLL and treatments for same which may have
also produced bilateral foot discomfort in the form of a neuropathy
Provide abdominal binder
Reduce utilization of metoprolol if systolic blood pressure less than 140
Continue iron dosing
Follow orthostatic blood pressures
D/W patient / family / nursing
All questions answered.
Will continue to follow pending results.
Original Note:
Consultation - Neurology 4
-
CONSULTING PHYSICIAN: Hema Pearson MD
REFERRING PHYSICIAN: Hospitalists/Dr. Lamb
DICTATED BY: CHAMP Beck
DATE/TIME OF REQUEST: 11/22/24
DATE/TIME OF CONSULTATION: 11/22/24
Reason for Consultation: Dizziness, ataxia
History of Present Illness:
This is a 79-year-old right-handed male who has presented to the hospital with report of dizziness and ataxia. Patient has been seen by our inpatient Neurology service twice in the past for similar symptoms and is followed as an outpatient by [facility] Live.
From previous evaluation by Neurology Dr. Ramirez on 01/18/21:
'The patient is a right-handed man with past medical history significant for CLL in remission and prostate cancer in remission, bronchiectasis, COPD, sleep apnea, coronary artery disease with 5 total stents who presents to the hospital with sudden
change in gait, balance, and feeling of funny sensation on his right hemibody. He has had symptoms of upper respiratory tract infection for approximately a week with symptoms of frequent cough, congestion, malaise and low-grade fever. He had been
treated with some antibiotics and steroids. This morning he awoke at 5 AM feeling normal and back to sleep. When he awoke at approximately 7:10 AM he noted a sensation of disequilibrium and tilting and he had severe problems in his gait seem to be
moving and leaning towards the right in general gait is severely off his baseline walking into carrera. He denies an outright sensation of himself or his environment spinning. He denies any headache, he does have chronic neck pain that is unchanged.
He notes some tinnitus in the left ear and that he generally does have some chronic tinnitus. No nausea/vomiting, dysarthria or unilateral weakness. There is a sensation of strangeness on the right side of the body and possibly some ache and
numbness on the right ankle. He feels that he may have some binocular diplopia worse when looking to the right, no out right vision loss. He has been compliant with baby aspirin once a day as well as pravastatin for history of coronary artery
disease and stents. His knowledge he has never had a history of a stroke. Nothing quite like this is ever happened before. Several years ago he did have several hours of vertigo that seem to emile spontaneously and he occasionally will have
episodes of vertigo of unclear origin.
He relates a history of headaches bout a year ago and was prescribed some every day preventive medication and in general the headaches went away with time. He has never had headaches characterized by photophobia, phonophobia, nausea or vomiting or
vision change.'
From previous evaluation by Neurology Dr. Morley on 01/06/24:
'This is a 78 year old right handed male who has presented to the hospital with (chief complaint) dizziness. He gives a history of coronary artery disease paroxysmal atrial fibrillation hyperlipidemia
sinusitis, kidney cyst, hyperlipidemia, CAD, non-ST elevation MA, CAD, colonic ectasia, peptic ulcer disease, thyroid nodule, vertebral fracture, arthritis, adenomatous colon polyps, left inguinal hernia, prostate cancer 09/2014 with radiation
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
leukemia, obesity, moderate aortic stenosis, neuropathy, COPD
He was admitted to [facility] after undergoing CABG x 4 due to underlying CAD. He was recently admitted for elective cardiac cath due to severe by echo and a positive stress test and also having substernal CP- he also had labile BP. His cardiac
cath revealed severe 4 vessel CAD and also severe - he was admitted on 12/26 for elective CABG. Post CABG course was complicated by pulmonary insufficiency and eventually he was extubated. Also he had transient MS change- which improved. He had
transient chest pain at his CABG site', some shortness of breath on exertion and chronic cough/ dry mouth. He has intermittent headache. with dizziness. He also has history of ' vertigo' due to inner ear problems. No fever or chills. His appetite
is poor. He is voiding ok. No nausea, vomiting or abdominal pain. He has had BM. His BP is fairly well controlled. He does not wish to use MAYRA stocking for swelling of legs.
Earlier this morning patient woke up with a headache and was given Tylenol. Symptoms resolved and he went back to sleep. While having his breakfast this morning he became lightheaded and nauseated altered sensation on the right side. He notified
his nurses. He was given his morning medications. And he was sent to the emergency room for further evaluation.
Upon arrival to the emergency room his symptoms have resolved.
At time of my examination awake alert oriented to person place and time normal speech pattern other than thick tongue which he claims is due to his mouth being dry.'
MRI brain and vessel imaging in 2020, 2022, and 2023 have been negative for stroke and significant stenosis.
Patient reports that six weeks ago he developed a lightheaded sensation like his 'head is floating' that has not dissipated. Yesterday (11/21/24), at 0930 he reports that he was seated, when he stood up and started walking out towards his garden. His
light-headed sensation became severe and he reports that he lost his balance walking and fell over. Then around 1300, he developed a pain above his right eye associated with blurry vision and diplopia when looking to his left. The visual disturbance
resolved after 5-6 hours but he still has the head discomfort today. He notes that the dizziness/lightheadedness occurs with walking and resolves at rest. He reports that he has experienced this in the past but it had seemed to resolve for awhile,
and then returned after his most recent cardiac surgery. He also notes that he has vertigo at times, but this does not feel similar to that.
He has neuropathy in both feet that has now started spreading up to his ankles/calves. This developed about a year after he finished chemo in 2016. His gabapentin was increased from 200mg to 300mg by his PCP two weeks ago due to symptoms spreading.
He denies any history of migraines but notes that he does get 'sinus headaches' on the right side of his head associated with changes in weather.
Past Medical History: CLL in remission and prostate cancer s/p chemo/radiation, COPD, bronchiectasis, JAYLA, CAD, HTN, HLD, white's esophagus, polyneuropathy
Surgical History: Cardiac catheterization s/p 5 cardiac stents, right thumb trigger finger release, sinus surgery, right jaw removal of calcified artery, carpal tunnel release bilaterally, right rotator cuff repair, left knee cartilage surgery
Family History: Mother- multiple small strokes. Father- MA age 48.
Social History: Former smoker. Rare alcohol. Denies illicit drug use.
Allergies: See below.
Home Medications: See below.
Review of Symptoms:
Patient denies any fever, chest pain, shortness of breath, GI or symptoms.
�Per the HPI.�All systems are reviewed negative except above.
Physical Exam:
The patient is afebrile, abdomen is nondistended, breathing is unlabored, skin is warm and dry, trace BLE edema.
NIH Stroke Scale:
I performed the NIH stroke scale on the patient on 11/22/24 at 1000. The patient scored 0 points on the NIH stroke scale assessment.
Neurologic Examination:
The patient is awake, alert and oriented x 3. He is able to follow commands and answer questions appropriately. There is no aphasia or dysarthria. On cranial nerve assessment, pupils are 3 mm bilateral, round and reactive to light and
accommodation. Visual scott are full. Extraocular movements are intact. Facial sensations are intact and bilaterally symmetrical, there is no facial asymmetry. Hearing is intact bilaterally to normal conversation volume. Tongue palate and uvula
are midline. Sternocleidomastoid strengths are full bilaterally. Motor strengths are 5/5 bilateral upper and lower extremities on medical research [place] scale. There is no drift or involuntary movement noted. Deep tendon reflexes are 2+ bilateral
upper and lower extremities except for absent AJs, and Babinski is absent bilaterally. There was no extinction noted on double simultaneous stimulation. Coordination is intact by finger to nose bilaterally.
Lab Results: See below.
Neuro Imaging:
1. CT head 11/21/24: No acute intracranial abnormality noted.
Differentials for the patient's presentation include:
1. Orthostatic hypotension is likely producing fluctuating dizziness as orthostatic vital signs are positive.
2. Migraine with aura possibly producing right-sided head discomfort, visual disturbances, and possibly balance difficulty.
3. Low concern for structural brain abnormality producing symptoms but cannot entirely exclude this.
Patient has the following risk factors for their symptoms: +orthostatic vital signs, similar episodes in the past
Recommendations:
-MRI brain and cervical spine w/ and w/o contrast pending.
-Goal normotension.
-Check orthostatic vital signs BID.
-Abdominal binder when OOB.
-Drink plenty of water, slow position changes.
-PT/OT evaluations.
-DVT prophylaxis.
-Follow-up with Dr. Live as an outpatient.
Discussed patient care with: Dr. Pearson, the patient
Vital Signs and Labs
-
Vital Signs and Labs:
Vital Signs
Temp Pulse Resp BP Pulse Ox
97.8 F 77 16 168/77 99
11/22/24 08:38 11/22/24 08:39 11/22/24 08:39 11/22/24 03:43 11/22/24 08:39
Lab Results
11/22/24 06:55
11/22/24 06:55
Sodium 139 mmol/L (135-145) 11/22/24 06:55
Potassium 4.5 mmol/L (3.5-5.1) 11/22/24 06:55
BUN 21 mg/dl (9-20) H 11/22/24 06:55
Glucose 95 mg/dl (70-99) 11/22/24 06:55
Calcium 9.1 mg/dl (8.4-10.2) 11/22/24 06:55
Medications
-
Active Medications
Generic Name Dose Route Start Last Admin
Trade Name Freq PRN Reason Stop Dose Admin
Acetaminophen 650 mg 11/21/24 23:27 11/22/24 03:15
Acetaminophen 325 Mg Tablet PO 12/19/24 23:26 650 mg
Q4HPRN PRN Administration
mild pain,headache,temp >101F
Albuterol 2 puff 11/21/24 23:41
Albuterol Hfa [90 Mcg/Dose] Inhaler INH
R TIDPRN PRN
SOB
Albuterol Sulfate 2.5 mg 11/22/24 08:00 11/22/24 08:32
Albuterol Nebs 2.5 Mg/3 Ml Ampul INH 2.5 mg
R QID ISRRAEL Administration
Aspirin 81 mg 11/22/24 08:00 11/22/24 09:47
Aspirin 81 Mg (Enteric Coated) Tablet PO 12/20/24 07:59 81 mg
DAILY ISRRAEL Administration
Budesonide 0.5 mg 11/22/24 08:00 11/22/24 08:31
Budesonide (Pulmicort Respules) 0.25 Mg/2 Ml INH 0.5 mg
R DAILY ISRRAEL Administration
Protocol
Cetirizine HCl 10 mg 11/22/24 08:00 11/22/24 09:48
Cetirizine Hcl 10 Mg Tablet PO 12/20/24 07:59 10 mg
DAILY ISRRAEL Administration
Ezetimibe 10 mg 11/21/24 23:27 11/21/24 23:55
Ezetimibe (Zetia) 10 Mg Tablet PO 12/19/24 23:26 10 mg
HS ISRRAEL Administration
Escitalopram Oxalate 5 mg 11/22/24 18:00
Escitalopram 5 Mg Tablet PO 12/20/24 17:59
QPM ISRRAEL
Ferrous Sulfate 325 mg 11/22/24 08:00 11/22/24 09:48
Ferrous Sulfate 325 Mg Tablet PO 12/20/24 07:59 325 mg
DAILY ISRRAEL Administration
Gabapentin 100 mg 11/22/24 08:00 11/22/24 09:47
Gabapentin 100 Mg Capsule PO 12/20/24 07:59 100 mg
DAILY ISRRAEL Administration
Heparin Sodium 5,000 units 11/22/24 00:00 11/22/24 09:49
Heparin 5,000 Units/Ml 1 Ml Vial SC 12/20/24 00:00 5,000 units
Q8 ISRRAEL Administration
Lactobacillus/Bifidobacterium 1 cap 11/22/24 08:00 11/22/24 09:47
Lactobac/Bifidobac (Visbiome) PO 12/20/24 07:59 1 cap
DAILY ISRRAEL Administration
Metoprolol Tartrate 12.5 mg 11/22/24 10:00
Metoprolol 12.5 Mg Regular Release Dose (1/2 Of 25 Mg Tablet) PO 12/20/24 09:59
BID ISRRAEL
Pantoprazole Sodium 40 mg 11/22/24 08:00 11/22/24 09:47
Pantoprazole 40 Mg Delayed Release Tablet PO 12/20/24 07:59 40 mg
BID SIRRAEL Administration
Pravastatin Sodium 80 mg 11/21/24 23:00 11/21/24 23:55
Pravastatin 40 Mg Tablet PO 12/19/24 22:59 80 mg
HS ISRRAEL Administration
Tamsulosin HCl 0.4 mg 11/22/24 08:00 11/22/24 09:47
Tamsulosin 0.4 Mg Capsule PO 12/20/24 07:59 0.4 mg
DAILY ISRRAEL Administration
Tiotropium [place] 2 puff 11/22/24 08:00 11/22/24 08:32
Tiotropium (Spiriva Respimat) 2.5 Mcg Inhaler INH 12/20/24 07:59 2 puff
R DAILY ISRRAEL Administration
Home Medications
�Medication �Instructions �Recorded
aspirin 81 mg tablet,delayed 81 mg PO DAILY Blood Clot 08/26/14
release Prevention/Tx
multivitamin with folic acid 400 1 tab PO DAILY Supplement 08/26/14
mcg tablet (Tab-A-Milena)
L.acidoph,paracasei,B.animalis 10 1 ea PO DAILY Gastrointestinal 12/18/17
billion cell capsule Issue
tamsulosin 0.4 mg capsule 0.4 mg PO DAILY Urinary Issue 01/18/21
ezetimibe 10 mg tablet 10 mg PO HS High Cholesterol 11/11/23
acetaminophen 325 mg tablet 650 mg (2 x 325 mg) PO Q4HPRN PRN 01/03/24
mild pain,headache,temp >101F #0
tabs
escitalopram oxalate 5 mg tablet 5 mg PO QPM 01/06/24
(Lexapro)
Fish Oil 3,000 mg PO DAILY 09/18/24
Glucosamine Chondroitin 1,500 mg PO DAILY 09/18/24
albuterol sulfate 2 puff PO TID PRN SOB 09/18/24
arformoterol 15 mcg/2 mL solution 2 ml inhalation BID 09/18/24
for nebulization (Brovana)
azelastine 2 spray intranasal BID PRN SOB 09/18/24
budesonide 0.25 mg/2 mL suspension 0.5 mg inhalation DAILY COPD 09/18/24
for nebulization
calcium carbonate 600 mg PO DAILY Supplement 09/18/24
esomeprazole magnesium 40 mg PO BID 09/18/24
ferrous sulfate 325 mg (65 mg 325 mg PO DAILY 09/18/24
iron) tablet (iron)
furosemide 40 mg tablet 20 mg PO DAILY PRN fluid retention, 09/18/24
levocetirizine 5 mg tablet 5 mg PO BID 09/18/24
metoprolol tartrate 25 mg tablet 12.5 mg PO Q12 Blood pressure, 09/18/24
heart rate
pravastatin 80 mg tablet 80 mg PO HS 09/18/24
revefenacin 175 mcg/3 mL solution 175 mcg inhalation DAILY 09/18/24
for nebulization (Yupelri)
gabapentin 100 mg capsule 200 mg PO AMHS 11/21/24
gabapentin 100 mg tablet 100 mg PO HS 11/21/24
Allergies
-
Allergies
Allergy/AdvReac Type Severity Reaction Status Date / Time
atorvastatin calcium (From Allergy muscle Verified 11/21/24 15:17
Lipitor) aches
bupivacaine Allergy Anaphylaxis Verified 11/21/24 15:17
celecoxib (From Celebrex) Allergy duodenal Verified 11/21/24 15:17
ulcers
codeine (Codeine) Allergy DIZZINESS, Verified 11/21/24 15:17
CHILLS
fentanyl (Fentanyl) Allergy Anaphylaxis Verified 11/21/24 15:17
lidocaine Allergy Anaphylaxis Verified 11/21/24 15:17
prilocaine Allergy Anaphylaxis Verified 11/21/24 15:17
procaine (Procaine) Allergy Anaphylaxis Verified 11/21/24 15:17
[2024-11-22] MEDS: LOPRESSOR 12.5 MG PO ×2 (11:15→19:12)
[2024-11-22 11:50] LABS: Ferritin 82.0 ng/ml (17.9-464.0)
--- NOTE | 2024-11-22 11:54 | CM ---
Patient seen bedside while getting neb treatment. Initial assessment completed. Patient is a 79M HX CABG, Tissue AoVR, CAD, RI , HTN, HLD , post op AF , COPD , Prostae CA seen at ER for lightheadedness.
Patient resides w/ spouse in a 2STH, 1 step to enter from the outside. Independent w/ ambulation, no device required. Patient has a RW, chair lift and a grab bar in the shower but does not use any of these at this time. Patient drives, he shared
that he enjoys gardening and swimming. Denies SNF/HC hx. Current w/ OP PT at [facility].
Address, point of contact and insurance verified
PCP: Deanna Madera
Pharmacy: [facility]
Patient admitted obs status. MEAGAN verbally reviewed, copy provided, copy on chart
Therapy evaluated patient, determining home PT vs OP. Patient stated he is already current w/ OP and will resume at d/c w/ a script
Plan: Home, resume OP therapy
[2024-11-22 12:22] LABS: Folate 9.7 ng/ml (2.76-20); Vitamin B12 513 pg/ml (239-931)
--- NOTE | 2024-11-22 12:33 | W.PN.HOSP.TC ---
Today's Communication/Plan
-
check echo
mri brain/c spine
pt/ot evaluation
continue ortho vitals check
Assessment / Plan
Assessment / Plan
Ataxia - worsening
HX Vestibular neuritis
- NEG HCT
- MRI brain and MRI C-spine ordered -as had some large cervical osteophytes.
- Ortho vitals neg
- Neurology evaluation requested
- Gabapentin dose reduced at admission if playing role
- PT/OT evaluation
CABG & Biologic tissue AopVR ( 12/26/24)
Hx CAD
Dyslipidemia
Hx sinus bradycardia and 6 second pause leading to syncope 2016
- c/w HVAC ESTIMATOR ASA
- c/w Metoprolol tartare - hold if HR < 55
- c/w HVAC ESTIMATOR statin
- Check echocardiogram as patient complaining some lightheadedness and rule out any valvular issue
Uncontrolled essential hypertension
- Patient hesitant to take more medication for fear of hypotension
- Maintain on Lopressor 12-1/2 mg bid for now
Recently Dxed Neuropathy/radiculopathy in the R leg - recently started gabapentin titrated up to 300 mg daily
- Reduce Gabapentin to 100mg daily in place of 300mg for now and observe
CLL HX
Prostate CA
- On chemotherapy and have some lower extremity swelling
HX GERD and Villareal's
HX postoperative atrial fibrillation
Hyperlipidemia
Hypertension
Villareal's esophagus
Colonic Extavia
Thyroid nodules
HX vertebral fracture
Prostate cancer treated with chemotherapy
Fatty liver new
COPD and Chronic cough
DVT Px: SQH
Full code
Anticipated Discharge: Within 24 hours
Subjective/Interval History
-
Date of Service: November 22, 2024
No new issues reported overnight
Denies any dizziness
No chest discomfort/shortness of breath
Objective Data
-
Labs:
Laboratory Results
11/22/24
06:55
WBC 8.7
Hgb 11.9 L
Hct 37.1 L
Plt Count 220
Sodium 139
Potassium 4.5
Chloride 110 H
Carbon Dioxide 24
BUN 21 H
Creatinine 1.1
Glucose 95
Calcium 9.1
Vital Signs:
Vital Signs
Temp Pulse Resp BP Pulse Ox
98.1 F 64 16 173/75 94
11/22/24 11:50 11/22/24 11:50 11/22/24 11:50 11/22/24 11:50 11/22/24 11:50
I&O
11/21/24 11/22/24 11/23/24
06:59 06:59 06:59
Intake Total 480 / 480
Balance 480 / 480
Review of Systems
-
Respiratory: Reports No Symptoms
Cardiac: Reports No Symptoms
Abdomen/GI: Reports No Symptoms
Physical Exam
-
General: No Apparent Distress and Comfortable
HEENT: Negative Oxygen
Respiratory: Clear to Auscultation
Cardiac: Regular Rhythm and S1/S2; Negative Murmur or Rub
Musculoskeletal: No Edema
Neuro: Awake, Alert, Oriented, No Motor Deficits and Nonfocal/Grossly Intact
Psych: Calm
[2024-11-22] MEDS: LEXAPRO 5 MG PO (17:22)
[2024-11-22] MEDS: PRAVACHOL 80 MG PO (21:20)
[2024-11-22] MEDS: ZETIA 10 MG PO (21:21)
[2024-11-23] MEDS: HEPARIN 5000 UNITS SC ×2 (00:21→08:52)
[2024-11-23 03:00] VITALS: BP 155/76
[2024-11-23 07:05] VITALS: BP 174/80
[2024-11-23] MEDS: VENTOLIN NEBULES 2.5 MG INH ×2 (07:10→11:06)
[2024-11-23] MEDS: SPIRIVA RESPIMAT 2.5 MCG 2 PUFF INH (07:10)
[2024-11-23] MEDS: PULMICORT 0.5 MG INH (07:10)
[2024-11-23 08:16] LABS: Hematocrit 37.0 % (39.0-52.0); Hemoglobin 12.1 g/dL (13.0-18.0); Mean Corp Hgb Conc. 32.7 g/dL (33.0-37.0); Mean Corpuscular Volume 94.9 fL (80.0-94.0); Platelet Count 202 10^3/uL (130-400); Red Cell Dist. Width 14.6 % (11.5-14.5)
[2024-11-23 08:42] VITALS: BP 135/73; BP 146/58; BP 161/62; PULSE 69; PULSE 73; PULSE 78
[2024-11-23] MEDS: LOPRESSOR PO (08:50)
[2024-11-23] MEDS: ASPIR LOW (ENTERIC COATED) 81 MG PO (08:51)
[2024-11-23] MEDS: VISBIOME 1 CAP PO (08:51)
[2024-11-23] MEDS: ZYRTEC 10 MG PO (08:51)
[2024-11-23] MEDS: NEURONTIN 100 MG PO (08:51)
[2024-11-23] MEDS: FEOSOL 325 MG PO (08:51)
[2024-11-23] MEDS: PROTONIX 40 MG PO (08:51)
[2024-11-23] MEDS: FLOMAX 0.4 MG PO (08:52)
[2024-11-23 09:05] LABS: Blood Urea Nitrogen 19 mg/dl (9-20); Calcium 9.1 mg/dl (8.4-10.2); Carbon Dioxide 26 mmol/L (22-30); Chloride 108 mmol/L (98-107); Estimated Creatinine Clearance 53 ml/min; Glucose 87 mg/dl (70-99); Potassium 4.5 mmol/L (3.5-5.1); Sodium 139 mmol/L (135-145); eGFR 55.88
--- NOTE | 2024-11-23 10:24 | PTCARENOTE ---
RN offered abdominal binder to patient again this shift, explained rational for item. Pt continues to decline wearing it on ambulation.
--- NOTE | 2024-11-23 11:12 | W.PN.HOSP.TC ---
Today's Communication/Plan
-
f/u MR brain/c spine report
will benefit with outpt vestibular therapy
Possible discharge today
Assessment / Plan
Assessment / Plan
Ataxia - worsening
HX Vestibular neuritis
- NEG HCT
- MRI brain and MRI C-spine ordered -as had some large cervical osteophytes.
- Ortho vitals pos with systolic blood pressure dropping 20 points at time. Although symptoms of lightheadedness occurs when patient is lying down.
- Patient complains of severe lightheadedness even on moving head. Questioning if patient have vestibular issues. Physical therapy noticed some right vestibular hypofunction with nystagmus on head turning. Will benefit with ENT and vestibular
therapy center follow-up.
- Neurology help appreciated
- Gabapentin dose reduced at admission if playing role
- PT/OT evaluation
CABG & Biologic tissue AopVR ( 12/26/24)
Hx CAD
Dyslipidemia
Hx sinus bradycardia and 6 second pause leading to syncope 2016
- c/w SALVAGE INSPECTOR ASA
- c/w Metoprolol tartare - hold if HR < 55
- c/w SALVAGE INSPECTOR statin
- Check echocardiogram as patient complaining some lightheadedness and rule out any valvular issue
Uncontrolled essential hypertension
- Patient hesitant to take more medication for fear of hypotension
- Maintain on Lopressor 12-1/2 mg bid for now
Recently Dxed Neuropathy/radiculopathy in the R leg - recently started gabapentin titrated up to 300 mg daily
- Reduce Gabapentin to 100mg daily in place of 300mg for now and observe
CLL HX
Prostate CA
- On chemotherapy and have some lower extremity swelling
HX GERD and Villareal's
HX postoperative atrial fibrillation
Hyperlipidemia
Hypertension
Villareal's esophagus
Colonic Extavia
Thyroid nodules
HX vertebral fracture
Prostate cancer treated with chemotherapy
Fatty liver new
COPD and Chronic cough
DVT Px: SQH
Full code
Anticipated Discharge: Today
Subjective/Interval History
-
Date of Service: November 23, 2024
Complain of significant dizziness spell in the morning, occurring on head movement
some right eye pain and calf pain with spontaneous improvement
Objective Data
-
Labs:
Laboratory Results
11/23/24
06:32
WBC 8.6
Hgb 12.1 L
Hct 37.0 L
Plt Count 202
Sodium 139
Potassium 4.5
Chloride 108 H
Carbon Dioxide 26
BUN 19
Creatinine 1.3
Glucose 87
Calcium 9.1
Vital Signs:
Vital Signs
Temp Pulse Resp BP Pulse Ox
98 F 60 16 135/73 95
11/23/24 07:05 11/23/24 11:07 11/23/24 11:07 11/23/24 08:50 11/23/24 07:11
I&O
11/22/24 11/23/24 11/24/24
06:59 06:59 06:59
Intake Total 480 / 480 480 / 480
Output Total 200 / 200
Balance 480 / 480 280 / 280
Review of Systems
-
Respiratory: Reports No Symptoms
Cardiac: Reports No Symptoms
Abdomen/GI: Reports No Symptoms
Physical Exam
-
General: No Apparent Distress and Comfortable
HEENT: Negative Oxygen
Neuro: Awake, Alert, Oriented, No Motor Deficits and Nonfocal/Grossly Intact
Psych: Calm
[2024-11-23 11:45] VITALS: BP 169/79
[2024-11-23 13:31] VITALS: BP 152/78; BP 169/75; BP 182/76; PULSE 82
--- NOTE | 2024-11-23 14:37 | CM ---
Chart reviewed. Patient for d/c today
Therapy cont to determine home PT vs OP. Patient is current w/ OP services and prefers to resume
TT hospitalist for script
No other CM needs at this time
Plan: Home, resume OP therapy
[2024-11-23 14:58] VITALS: BP 122/70
--- NOTE | 2024-11-23 15:19 | W.DCSUMMARY ---
Discharge Summary
Discharge Data
Date of Admission: 11/21/24
Date of Discharge: 11/23/24
-
Pending Results: No
Hospital Course
Discharging Physician : Dr Sivakumar Lamb
Disposition : To home
Primary care physician : Dr Deanna Madera
Principal Discharge diagnosis :
Lightheadedness
Ataxia
Chronic Discharge diagnosis :
Coronary disease with history of bypass and bioprosthetic aortic valve placement
Hyperlipidemia
Essential hypertension
Neuropathy/radiculopathy
Chronic lymphocytic leukemia
History of prostate cancer
Gastroesophageal reflux disease
History of Villareal's esophagus
History of thyroid nodules
Chronic obstructive pulmonary disease
Hospital Course :
Patient is a 79-year-old male with admission past medical history came to ER with new onset of lightheadedness for few weeks. Patient was having difficulty with ambulation and felt like patient was going to fall over. Patient has had problems with
dizziness and has been evaluated in the past by neurology. Patient was planned to have an outpatient MRI done to rule out any posterior circulation stroke although patient came in for evaluation in light of worsening symptoms. CT head in ER ruled
out any large stroke. Neurology was involved in care and patient had a follow-up MRI brain and C-spine which ruled out any stroke or cervical spinal stenosis. Ortho static vitals were positive although was not corresponding to with patient symptom
pattern. Echocardiogram was done which ruled out any new valvular issues. Patient was complaining lightheadedness on moving head and was possibly question to have right vestibular hypofunction. Patient was requested to follow-up with ENT
physician postdischarge. Patient was cleared by physical therapy for outpatient continuation of physical therapy.
Important imaging findings :
None
Procedure findings :
None
Discharge Plan
-
Patient Disposition: Home (Routine Discharge)
Discharge Diagnosis/Procedures: Dizziness episode, Ataxia
Condition: Fair
Diet: Low Cholesterol and 2 Gram Sodium
Activity: As tolerated
Driving Restrictions: As prior to admission
Bathing Restrictions: OK to Shower
Referrals:
Deanna Madera MD [Family Provider, Family Practice] - in one week
Prescriptions:
Continued
aspirin 81 MG tablet,delayed release (DR/EC)
81 mg PO DAILY
multivitamin with folic acid [Tab-A-Milena] 1 TABLET tablet
1 tab PO DAILY
L.acidoph,paracasebozena,B.animalis 1 EACH capsule
1 ea PO DAILY
tamsulosin 0.4 MG capsule
0.4 mg PO DAILY
ezetimibe 10 mg Tablet
10 mg PO HS
acetaminophen 325 mg Tablet
650 mg PO Q4HPRN PRN (Reason: mild pain,headache,temp >101F ) Qty: 0 0RF
escitalopram oxalate [Lexapro] 5 mg Tablet
5 mg PO QPM
furosemide 40 mg tablet
20 mg PO DAILY PRN (Reason: fluid retention,)
calcium carbonate 500 mg calcium (1,250 mg) tablet
600 mg PO DAILY
budesonide 0.25 mg/2 mL suspension for nebulization
0.5 mg inhalation DAILY
metoprolol tartrate 25 mg tablet
12.5 mg PO Q12
albuterol sulfate
2 puff PO TID PRN (Reason: SOB)
azelastine
2 spray intranasal BID PRN (Reason: SOB)
arformoterol [Brovana] 15 mcg/2 mL Solution For Nebulization
2 ml INHALATION BID
Fish Oil
3,000 mg PO DAILY
ferrous sulfate [iron] 325 mg (65 mg iron) Tablet
325 mg PO DAILY
Glucosamine Chondroitin
1,500 mg PO DAILY
levocetirizine 5 mg Tablet
5 mg PO BID
esomeprazole magnesium
40 mg PO BID
pravastatin 80 mg Tablet
80 mg PO HS
Yupelri 175 mcg/3 mL Solution For Nebulization
175 mcg INHALATION DAILY
gabapentin 100 mg Capsule
200 mg PO AMHS
gabapentin 100 mg Tablet
100 mg PO HS
Discharge Orders:
Discharge Patient (As Directed); Ordered 11/23/24
Ordered By: Sivakumar Lamb
Discharge Date and Time
Print Language: SURINAMESE
== END 2024-11-23 15:38 | disposition home or self-care (01) ==
LOC: 4 WEST ACU 21:25
PROVIDERS: Emergency Medicine; Nurse Practitioner Family; ADMITTING PHYSICIAN Internal Medicine; ATTENDING PHYSICIAN Hospitalist; CONSULT PHYSICIAN Psychiatry & Neurology Neurology; EMERGENCY PHYSICIAN Emergency Medicine; FAMILY PHYSICIAN Family Medicine
DX: R27.0 Ataxia, unspecified (principal); C91.11 Chronic lymphocytic leukemia of B-cell type in remission; G62.9 Polyneuropathy, unspecified; I10 Essential (primary) hypertension; I25.10 Atherosclerotic heart disease of native coronary artery without angina pectoris; I95.1 Orthostatic hypotension; J44.9 Chronic obstructive pulmonary disease, unspecified; K21.9 Gastro-esophageal reflux disease without esophagitis; E78.00 Pure hypercholesterolemia, unspecified; E04.1 Nontoxic single thyroid nodule; Z79.82 Long term (current) use of aspirin; Z79.899 Other long term (current) drug therapy; Z79.51 Long term (current) use of inhaled steroids; Z85.46 Personal history of malignant neoplasm of prostate; Z87.19 Personal history of other diseases of the digestive system; Z87.891 Personal history of nicotine dependence; Z92.21 Personal history of antineoplastic chemotherapy; Z92.3 Personal history of irradiation; Z95.1 Presence of aortocoronary bypass graft; Z95.5 Presence of coronary angioplasty implant and graft
CPT/HCPCS: 70450; 70553; 72141; 80048; 80053; 82607; 82728; 82746; 84443; 84484; 85025; 85027; 85652; 93005; 93306; 94640; 97116; 97163; 97166; 99285; A9575; G0378

== ENCOUNTER 2024-12-05 14:48 | Day surgery (SDC) | payer MEDICARE, SELFPAY ==
[2024-12-05] VITALS (12 sets, daily range): BP systolic 94–155; BP diastolic 51–71; BMI 31.6
[2024-12-05] MEDS: DILAUDID 0.25 MG IV (17:29)
[2024-12-05] MEDS: OFIRMEV 100 IV (17:57)
[2024-12-05] MEDS: VENTOLIN NEBULES 2.5 MG INH (18:29)
== END 2024-12-05 19:38 | disposition home or self-care (01) ==
LOC: SDS 14:48
PROVIDERS: ATTENDING PHYSICIAN Orthopaedic Surgery
DX: S52.502A Unspecified fracture of the lower end of left radius, initial encounter for closed fracture (principal); W18.39XA Other fall on same level, initial encounter; Y93.9 Activity, unspecified
CPT/HCPCS: 25607; 73110; 76000; 94640; C1713

== ENCOUNTER 2025-01-09 06:19 | Day surgery (SDC) | payer MEDICARE, SELFPAY | END 2025-01-09 14:00 | disposition home or self-care (01) | LOC: GI 06:19 | PROVIDERS: ATTENDING PHYSICIAN Specialist | DX: K22.70 Barrett's esophagus without dysplasia (principal); K31.7 Polyp of stomach and duodenum | CPT/HCPCS: 43251; 88305 ==

== ENCOUNTER → 2025-01-25 06:56 | Outpatient (REF) | payer MEDICARE, SELFPAY ==
[2025-01-25 08:18] LABS: Hematocrit 37.9 % (39.0-52.0); Hemoglobin 12.3 g/dL (13.0-18.0); Mean Corp Hgb Conc. 32.5 g/dL (33.0-37.0); Mean Corpuscular Volume 95.9 fL (80.0-94.0); Nucleated Red Blood Cells % 0 % (-); Platelet Count 254 10^3/uL (130-400); Red Cell Dist. Width 13.7 % (11.5-14.5)
[2025-01-25 08:45] LABS: ALT (SGPT) 29 U/L (0-50); AST (SGOT) 28 U/L (17-59); Albumin 4.0 g/dl (3.5-5.0); Alkaline Phosphatase 58 U/L (38-126); Blood Urea Nitrogen 29 mg/dl (9-20); Calcium 9.2 mg/dl (8.4-10.2); Carbon Dioxide 26 mmol/L (22-30); Chloride 107 mmol/L (98-107); Glucose 103 mg/dl (70-99); HDL Cholesterol 38 mg/dl; LDH 216 U/L (120-246); LDL Cholesterol, Calculated 77 mg/dl; Potassium 4.8 mmol/L (3.5-5.1); Sodium 137 mmol/L (135-145); Total Protein 6.6 g/dl (6.3-8.2); Very Low Density Lipoprotein 34 mg/dl (0-30); eGFR 55.88
[2025-01-25 09:11] LABS: PSA, Total - Diagnostic 0.34 ng/ml (0.0-4.0)
== END ==
LOC: REG 06:56
PROVIDERS: ATTENDING PHYSICIAN Internal Medicine Hematology & Oncology; FAMILY PHYSICIAN Family Medicine; OTHER PHYSICIAN Nuclear Medicine Nuclear Cardiology
DX: C91.10 Chronic lymphocytic leukemia of B-cell type not having achieved remission (principal); C61 Malignant neoplasm of prostate; I25.10 Atherosclerotic heart disease of native coronary artery without angina pectoris; R31.0 Gross hematuria
CPT/HCPCS: 36415; 80053; 80061; 83615; 84153; 85025